=== PATIENT | female | born 1980 | race Hispanic/Latino ===

== ENCOUNTER 2019-10-31 20:24 | Inpatient (IN) | payer MEDICAID, MEDICARE, OTHER ==
[~2019-10-31] VITALS: Ht 172.7 cm; Wt 125.6 kg
[2019-10-31] MEDS ORDERED: DiphenhydrAMINE HCL 50 MG/ML VIAL ONE (20:47)
[2019-10-31] MEDS ORDERED: FAMOTIDINE/PF 20 MG/2 ML VIAL IV ONE (20:48)
[2019-10-31 20:50] LABS: BASOPHILS % (AUTO) 0.6 % (0.0-5.0); EOSINOPHILS % (AUTO) 3.5 % (0.0-8.0); HEMATOCRIT 29.6 % (36-48); LYMPHOCYTES % (AUTO) 6.8 % (21.0-51.0); MEAN CORPUSCULAR HEMOGLOBIN 28.5 pg (27.0-33.0); MEAN CORPUSCULAR HGB CONC 33.4 g/dL (32.0-36.0); MEAN CORPUSCULAR VOLUME 85.3 fL (79-99); MONOCYTES % (AUTO) 12.3 % (3.0-13.0); NEUTROPHILS % (AUTO) 76.4 % (40.0-77.0); PLATELET COUNT (AUTO) 271 K/uL (130-400); RED BLOOD CELL COUNT(AUTO) 3.47 MIL/uL (4.00-5.50); RED CELL DISTRIBUTION WIDTH 13.9 % (11.0-15.5); WHITE BLOOD COUNT (AUTO) 7.1 K/uL (4.8-10.8)
[2019-10-31 21:21] LABS: ALBUMIN 1.5 g/dL (3.5-5.0); BILIRUBIN,TOTAL 0.2 mg/dL (0.2-1.0); CREATININE 7.8 mg/dL (0.5-1.5); CRP QUANTITATIVE 35.2 mg/L (0.00-9.0); POTASSIUM 3.7 mmol/L (3.5-5.1); TOTAL PROTEIN, SERUM 5.2 g/dL (6.0-8.3)
[2019-10-31 21:53] LABS: ERYTHROCYTE SEDIMENTATION RATE 44 MM/HR (0-20)
[2019-10-31] MEDS ORDERED: FUROSEMIDE 10 MG/ML 4ML VIAL ONE (22:51)
[2019-10-31] MEDS ORDERED: LACTULOSE 20 GM/30 ML UDCUP PO PRN (23:30)
[2019-10-31] MEDS ORDERED: ONDANSETRON HCL 4 MG/2 ML VIAL IV PRN (23:30)
[2019-10-31] MEDS ORDERED: ACETAMINOPHEN 325 MG TAB PO PRN ×2 (23:30)
[2019-10-31] MEDS ORDERED: HEPARIN SODIUM 5000UNIT/ML 1ML VIAL SQ SCH (23:30)
[2019-11-01] MEDS ORDERED: HYDRALAZINE HCL 20 MG/ML VIAL IV PRN
--- NOTE | 2019-11-01 01:15 | NUR ---
condition received patient lethargic, patient eye swollen closed, unable to answer questions , breathing with episodes of apnea, hospitalist at bedside vero baughp with orders to do abg and stat cxr, radiology called for pending cxr and rt called for stat abg, housecleaner facundo stern rn, at bedside, informed of patient condition, with orders to upgrade to pccu room obtained to transfer
--- NOTE | 2019-11-01 01:30 | NUR ---
abg rt to do abg as ordered abg tolerated well
[2019-11-01 01:39] LABS: ABG HCO3 21.2 mmol/L (21.0-28.0); ABG OXYGEN SATURATION 97.4 % (95.0-99.0); ABG PCO2 44 mmHg (32-45)
--- NOTE | 2019-11-01 01:50 | NUR ---
transfer report given to sara harrison r.n tramansiferred to room 204 via bed
--- NOTE | 2019-11-01 01:50 | NUR ---
Patient transferred from med/surg. Lethargic, does open eyes when name is called. Answers yes and no. Currently on 2L NC. Resting in bed. Anasarca noted. Periorbital edema. eyes swollen shut. Will continue to monitor.
[2019-11-01 02:26] VITALS: BP 162/94
[2019-11-01 04:00] VITALS: BP 168/89
[2019-11-01 04:14] LABS: BASOPHILS % (AUTO) 0.4 % (0.0-5.0); EOSINOPHILS % (AUTO) 2.8 % (0.0-8.0); HEMATOCRIT 29.8 % (36-48); LYMPHOCYTES % (AUTO) 7.3 % (21.0-51.0); MEAN CORPUSCULAR HEMOGLOBIN 28.3 pg (27.0-33.0); MEAN CORPUSCULAR HGB CONC 32.9 g/dL (32.0-36.0); MEAN CORPUSCULAR VOLUME 86.1 fL (79-99); MONOCYTES % (AUTO) 12.3 % (3.0-13.0); NEUTROPHILS % (AUTO) 76.5 % (40.0-77.0); PLATELET COUNT (AUTO) 307 K/uL (130-400); RED BLOOD CELL COUNT(AUTO) 3.46 MIL/uL (4.00-5.50); RED CELL DISTRIBUTION WIDTH 13.8 % (11.0-15.5); WHITE BLOOD COUNT (AUTO) 7.2 K/uL (4.8-10.8)
[2019-11-01 04:33] LABS: CREATININE 7.7 mg/dL (0.5-1.5); POTASSIUM 3.8 mmol/L (3.5-5.1)
[2019-11-01] MEDS: INSULIN HUMULIN R 100 UNIT/ML 3ML SQ SCH ×4 (06:22→21:00)
[2019-11-01] MEDS ORDERED: QUET200T29 PO (07:46)
[2019-11-01] MEDS ORDERED: TRAZ150T79 PO (07:46)
[2019-11-01] MEDS ORDERED: PHOSLOC PO (07:46)
[2019-11-01] MEDS ORDERED: LEVO150T11 PO (07:46)
[2019-11-01] MEDS ORDERED: FLUO20CA35 PO (07:46)
[2019-11-01] MEDS ORDERED: ATOR40TA71 PO (07:46)
[2019-11-01] MEDS ORDERED: ROPI0.2527 PO (07:46)
[2019-11-01] MEDS ORDERED: AMLO-258 PO (07:46)
[2019-11-01] MEDS ORDERED: ALLO100T PO (07:46)
[2019-11-01] MEDS ORDERED: B,C/1TAB PO (07:46)
[2019-11-01] MEDS ORDERED: CLON0.1T PO (07:46)
[2019-11-01] MEDS ORDERED: SITA25TA5 PO (07:46)
[2019-11-01] MEDS ORDERED: HYDR-4154 PO (07:46)
[2019-11-01] MEDS ORDERED: GABA-529 PO (07:47)
--- NOTE | 2019-11-01 08:00 | NUR ---
ASSESSMENT PT IS AAOX3 LETHARGIC BUT ANSWERS APPOPRIATELY TO LIGHT VERBAL STIMULI. RESTING IN BED. DENIES CP DENIES SOB DENIES NV. NOTED EYES ARE SWOLLEN. PERITONEAL DIALYSIS CATH IN PLACE AND INTACT. NOTED LAVA + THRILL + BRUIT. CALL LIGHT WITHIN REACH.
[2019-11-01] MEDS: FAMOTIDINE 20MG TAB 20 MG TAB PO SCH (08:08)
[2019-11-01] MEDS: HEPARIN SODIUM 5000UNIT/ML 1ML VIAL SQ SCH ×2 (08:09→20:36)
[2019-11-01 08:14] VITALS: BP 174/93
[2019-11-01] MEDS ORDERED: ZINC PO SCH (09:30)
[2019-11-01] MEDS ORDERED: [UNRECOGNIZED DRUG - OTHER] PO SCH (09:30)
[2019-11-01] MEDS ORDERED: D3 PO SCH (09:30)
[2019-11-01] MEDS ORDERED: FOLIC PO SCH (09:30)
[2019-11-01] MEDS ORDERED: SELENOMETH PO SCH (09:30)
[2019-11-01] MEDS ORDERED: CEFTRIAXONE SODIUM 1 GM IVP SCH (10:15)
--- NOTE | 2019-11-01 10:30 | NUR ---
HOSPITALIST ROUNDED ORDERS RECEIVED. RESP SWAB COLLECTED. REPORT GIVEN TO PATRICIA COHEN. PATIENT DOWN TO CT SCAN VIA BED WITH RAD STAFF.
[2019-11-01] MEDS: AZITHROMYCIN 500MG+NS 250ML 250 ML IV SCH (12:16)
[2019-11-01] MEDS: CALCIUM ACETATE 667 MG CAPSULE PO SCH ×2 (12:16→17:57)
[2019-11-01] MEDS ORDERED: EPOETIN ALFA 10,000 UNIT/ML VIAL SQ SCH (13:15)
[2019-11-01] MEDS: CLONIDINE HCL 0.1 MG TABLET PO SCH ×2 (13:44→20:34)
[2019-11-01] MEDS: GABAPENTIN 100 MG CAPSULE PO SCH ×2 (13:44→20:33)
[2019-11-01] MEDS: HYDRALAZINE HCL 25 MG TABLET PO SCH ×2 (13:44→20:34)
[2019-11-01] MEDS: PHARMACY COMMUNICATION MISC SCH ×2 (14:00→22:00)
[2019-11-01] MEDS: LEVOTHYROXINE 150 MCG TABLET PO SCH (14:19)
[2019-11-01 16:31] VITALS: BP 132/76
[2019-11-01 20:05] VITALS: BP 165/79
[2019-11-01] MEDS: ZOSYN 3.375GM+NS 50ML 50 ML IV SCH (20:41)
[2019-11-01] MEDS ORDERED: ROPINIROLE HCL 0.25 MG TABLET PO SCH (21:00)
[2019-11-01] MEDS ORDERED: ATORVASTATIN CALCIUM 40 MG TABLET PO SCH (21:00)
[2019-11-01] MEDS ORDERED: QUETIAPINE FUMARATE 100 MG TAB PO SCH (21:00)
[2019-11-02 00:14] VITALS: BP 136/80
[2019-11-02] MEDS ORDERED: DEXTROSE 50%-WATER 50 ML DISP.SYRIN IV ONE (00:54)
[2019-11-02] MEDS ORDERED: DEXTROSE 5 % AND 0.9 % NACL 1,000 ML IV SCH (04:00)
[2019-11-02 04:32] VITALS: BP 150/89
[2019-11-02 04:52] LABS: BASOPHILS % (AUTO) 0.9 % (0.0-5.0); EOSINOPHILS % (AUTO) 2.3 % (0.0-8.0); HEMATOCRIT 26.7 % (36-48); LYMPHOCYTES % (AUTO) 7.9 % (21.0-51.0); MEAN CORPUSCULAR HEMOGLOBIN 28.4 pg (27.0-33.0); MEAN CORPUSCULAR HGB CONC 32.6 g/dL (32.0-36.0); MEAN CORPUSCULAR VOLUME 87.3 fL (79-99); MONOCYTES % (AUTO) 10.9 % (3.0-13.0); NEUTROPHILS % (AUTO) 77.3 % (40.0-77.0); PLATELET COUNT (AUTO) 266 K/uL (130-400); RED BLOOD CELL COUNT(AUTO) 3.06 MIL/uL (4.00-5.50); RED CELL DISTRIBUTION WIDTH 14.2 % (11.0-15.5); WHITE BLOOD COUNT (AUTO) 4.3 K/uL (4.8-10.8)
[2019-11-02 05:45] LABS: % IRON SATURATION 55.6 % (22-44)
[2019-11-02] MEDS ORDERED: LEVOTHYROXINE 150 MCG TABLET PO SCH (06:30)
[2019-11-02] MEDS: LEVOTHYROXINE 150 MCG TABLET PO SCH (06:41)
[2019-11-02 06:56] LABS: ALBUMIN 1.5 g/dL (3.5-5.0); BILIRUBIN,TOTAL 0.1 mg/dL (0.2-1.0); CREATININE 6.7 mg/dL (0.5-1.5); MAGNESIUM 2.1 mg/dL (1.80-2.40); PHOSPHORUS 8.8 mg/dL (2.5-4.9); POTASSIUM 3.7 mmol/L (3.5-5.1); TOTAL PROTEIN, SERUM 5.1 g/dL (6.0-8.3); URIC ACID 4.3 mg/dL (2.6-7.2)
[2019-11-02 07:00] VITALS: BP 163/77
[2019-11-02] MEDS: INSULIN HUMULIN R 100 UNIT/ML 3ML SQ SCH (07:30)
[2019-11-02] MEDS: PHARMACY COMMUNICATION MISC SCH (07:36)
[2019-11-02] MEDS: CALCIUM ACETATE 667 MG CAPSULE PO SCH ×2 (08:51→11:42)
[2019-11-02] MEDS: GABAPENTIN 100 MG CAPSULE PO SCH (08:52)
[2019-11-02] MEDS: HYDRALAZINE HCL 25 MG TABLET PO SCH (08:53)
[2019-11-02] MEDS: CLONIDINE HCL 0.1 MG TABLET PO SCH (08:53)
[2019-11-02] MEDS: FAMOTIDINE 20MG TAB 20 MG TAB PO SCH (08:54)
[2019-11-02] MEDS: ZOSYN 3.375GM+NS 50ML 50 ML IV SCH (08:54)
[2019-11-02] MEDS ORDERED: ALLOPURINOL 100 MG TABLET PO SCH (09:00)
[2019-11-02] MEDS ORDERED: AMLODIPINE BESYLATE 5 MG TAB PO SCH (09:00)
[2019-11-02] MEDS: HEPARIN SODIUM 5000UNIT/ML 1ML VIAL SQ SCH (09:13)
[2019-11-02 11:00] VITALS: BP 162/73
[2019-11-02] MEDS: AZITHROMYCIN 500MG+NS 250ML 250 ML IV SCH (11:42)
--- NOTE | 2019-11-02 13:45 | NUR ---
Initial: PT currently in resp. isolation. Call placed to pt's room. Was able to speak w pt regarding dcp. Pt mentions that prior to admission she was using a walker for ambulation. She completed ADLs w assistance from her mom. Per pt she was completing peritoneal dialysis at home and [facility] [place]. She mentions that she is thinking of switching to hemodialysis. Encouraged her to discuss this w nephrology. Pt mentions that she feels safe and comfortable to [place]. CM to continue to follow and wait for Md recommendations. Addendum: 11/02/19 at 1703 by MANNIE MORRIOSN Amended: Links added.
[2019-12-28] MEDS ORDERED: TRAM100T40 PO (22:18)
[2019-12-30] MEDS ORDERED: HYDR25 PO (16:59)
[2019-12-30] MEDS ORDERED: LEVO100T4 PO (16:59)
[2019-12-30] MEDS ORDERED: SEVE800 PO (16:59)
[2019-12-30] MEDS ORDERED: CLON0.1T2 PO (16:59)
[2019-12-30] MEDS ORDERED: MINO2.5 PO (17:14)
[2019-12-30] MEDS ORDERED: Folic Acid/Vitamin B Comp W-C PO (17:14)
== END 2019-11-02 14:30 | disposition left against medical advice (07) | DRG 602 ==
LOC: EDH 20:24 → EDHIP 23:17 → 3AH 11-01 00:11 → 2AH 11-01 01:55 → 2DH 11-01 11:50
PROVIDERS: ADMIT Internal Medicine; ATTEND Internal Medicine
PROC: 3E1M39Z Irrigation of Peritoneal Cavity using Dialysate, Percutaneous Approach (ICD-10-PCS; principal; 2019-11-01)
DX: L03.211 Cellulitis of face (principal); J18.9 Pneumonia, unspecified organism; N18.6 End stage renal disease; I12.0 Hypertensive chronic kidney disease with stage 5 chronic kidney disease or end stage renal disease; E66.2 Morbid (severe) obesity with alveolar hypoventilation; Z68.41 Body mass index [BMI] 40.0-44.9, adult; E87.1 Hypo-osmolality and hyponatremia; E87.70 Fluid overload, unspecified; H05.229 Edema of unspecified orbit; E11.22 Type 2 diabetes mellitus with diabetic chronic kidney disease; D64.9 Anemia, unspecified; E03.9 Hypothyroidism, unspecified; E11.649 Type 2 diabetes mellitus with hypoglycemia without coma; E78.5 Hyperlipidemia, unspecified; E87.8 Other disorders of electrolyte and fluid balance, not elsewhere classified; F17.210 Nicotine dependence, cigarettes, uncomplicated; Z99.2 Dependence on renal dialysis; Z91.19 Patient's noncompliance with other medical treatment and regimen; Z88.8 Allergy status to other drugs, medicaments and biological substances; Z83.3 Family history of diabetes mellitus; Z03.818 Encounter for observation for suspected exposure to other biological agents ruled out
CPT/HCPCS: 36415; 36600; 71045; 71250; 80048; 80053; 82150; 82550; 82728; 82803; 82948; 83540; 83550; 83605; 83690; 83735; 83880; 83930; 84100; 84145; 84443; 84484; 84550; 85025; 85651; 86140; 87040; 87077; 87186; 87486; 87581; 87633; 87635; 87798; 90935; 93005; G0378; J0360; J0456; J0696; J0885; J1200; J1644; J1940; J2405; J2543; J3490; J7070

== ENCOUNTER 2019-11-05 23:58 | Inpatient (IN) | payer MEDICARE ==
[~2019-11-05] VITALS: Ht 172.7 cm; Wt 121.7 kg
[~2019-11-05 23:58] MED LIST: ALLO100T PO; AMLO10TA7 PO; ATOR40TA71 PO; B,C/1TAB PO; CLON0.1T PO; FLUO20CA35 PO; GABA-529 PO; HYDR-4154 PO; LEVO150T11 PO; PHOSLOC PO; QUET200T29 PO; ROPI0.2527 PO; SITA25TA5 PO; TRAZ150T79 PO
[2019-11-06 00:47] LABS: INR 0.87 (0.85-1.15); PARTIAL THROMBOPLASTIN TIME 31.6 SEC (26.3-35.5); PROTHROMBIN TIME 9.4 SEC (9.6-11.6)
[2019-11-06 00:52] LABS: ALBUMIN 1.6 g/dL (3.5-5.0); BILIRUBIN,TOTAL 0.2 mg/dL (0.2-1.0); MAGNESIUM 2.2 mg/dL (1.80-2.40); POTASSIUM 4.1 mmol/L (3.5-5.1); TOTAL PROTEIN, SERUM 5.5 g/dL (6.0-8.3)
[2019-11-06 00:56] LABS: CREATININE 8.5 mg/dL (0.5-1.5)
[2019-11-06 01:05] LABS: BASOPHILS % (AUTO) 0.4 % (0.0-5.0); EOSINOPHILS % (AUTO) 2.5 % (0.0-8.0); HEMATOCRIT 26.4 % (36-48); LYMPHOCYTES % (AUTO) 4.8 % (21.0-51.0); MEAN CORPUSCULAR HEMOGLOBIN 28.5 pg (27.0-33.0); MEAN CORPUSCULAR HGB CONC 33.3 g/dL (32.0-36.0); MEAN CORPUSCULAR VOLUME 85.4 fL (79-99); MONOCYTES % (AUTO) 7.2 % (3.0-13.0); NEUTROPHILS % (AUTO) 84.6 % (40.0-77.0); PLATELET COUNT (AUTO) 310 K/uL (130-400); RED BLOOD CELL COUNT(AUTO) 3.09 MIL/uL (4.00-5.50); RED CELL DISTRIBUTION WIDTH 13.9 % (11.0-15.5); WHITE BLOOD COUNT (AUTO) 8.5 K/uL (4.8-10.8)
[2019-11-06] MEDS ORDERED: ACETAMINOPHEN 325 MG TAB ONE (01:16)
[2019-11-06 01:32] LABS: B-TYPE NATRIURETIC PEPTIDE 1090 pg/mL (0-100)
[2019-11-06] MEDS ORDERED: ONDANSETRON HCL 4 MG/2 ML VIAL IV PRN (02:15)
[2019-11-06] MEDS ORDERED: ACETAMINOPHEN 325 MG TAB PO PRN ×2 (02:15)
[2019-11-06] MEDS ORDERED: GLUCAGON 1MG KIT 1 MG ML IM PRN (02:30)
[2019-11-06] MEDS ORDERED: DEXTROSE 50%-WATER 50 ML DISP.SYRIN IV PRN (02:30)
[2019-11-06] MEDS ORDERED: CLONIDINE HCL 0.1 MG TABLET PO ONE (02:30)
[2019-11-06] MEDS ORDERED: HYDRALAZINE HCL 20 MG/ML VIAL IV PRN (02:30)
[2019-11-06] MEDS ORDERED: CLONIDINE HCL 0.1 MG TABLET ONE (02:34)
[2019-11-06 03:15] VITALS: BP_SYST 185; BP_SYST 191; BP_DIAS 105; BP_DIAS 98
[2019-11-06 04:00] VITALS: BP 142/76
[2019-11-06] MEDS: INSULIN HUMULIN R 100 UNIT/ML 3ML SQ SCH ×4 (06:30→21:00)
[2019-11-06 08:00] VITALS: BP 158/86
[2019-11-06] MEDS: HEPARIN SODIUM 5000UNIT/ML 1ML VIAL SQ SCH ×2 (09:00→23:42)
--- NOTE | 2019-11-06 09:00 | NUR ---
I HAVE SPOKEN TO DR FU ON THE PHONE AND HE HAS GIVEN ME ORDER TO START DIALYSIS; I HAVE CALLED [facility] FOR DIALYSIS [facility] AND INFORMED HER PT NEEDS STAT DIALYSIS; CONSENT IS ALREADY SIGNED.
[2019-11-06 09:30] LABS: HEMATOCRIT 25.6 % (36-48)
[2019-11-06 09:47] LABS: HEMOGLOBIN A1C 5.6 % (4.0-6.0)
[2019-11-06] MEDS: FAMOTIDINE 20MG TAB 20 MG TAB PO SCH ×2 (10:01→23:11)
[2019-11-06 10:03] LABS: % IRON SATURATION 12.8 % (22-44); ALBUMIN 1.6 g/dL (3.5-5.0)
[2019-11-06 10:11] LABS: CREATININE 8.6 mg/dL (0.5-1.5)
[2019-11-06 12:00] VITALS: BP 163/76
[2019-11-06] MEDS: CALCIUM ACETATE 667 MG CAPSULE PO SCH ×2 (12:00→17:00)
--- NOTE | 2019-11-06 12:23 | NUR ---
INITIAL SW spoke with patient's mother, Eloina Littlejohn, [phone]. No home services. DME: [facility]. Patient was doing peritoneal dialysis at home but now wants to have hemodialysis as per mother. Patient just moved down from [place] about a month and a half ago. Patient has no PCP yet. Pharmacy is [facility] in [place]. As per mother, patient needs assistance with ADL's and does not drive. DCP as per mother is home unless patient agrees for placement. Addendum: 11/06/19 at 1229 by LAKE SHERIFF SS Amended: Links added.
--- NOTE | 2019-11-06 13:04 | NUR ---
pt is ready for permacath placement, consent done; i spoke to laboratory veterinarian and they stated radiologist not available till 4pm this afternoon to place; i expressed the need to have done today and not delay till tomorrow. .
[2019-11-06] MEDS: GABAPENTIN 100 MG CAPSULE PO SCH ×2 (14:00→23:11)
[2019-11-06] MEDS: CLONIDINE HCL 0.1 MG TABLET PO SCH (14:00)
[2019-11-06] MEDS ORDERED: EPOETIN ALFA 10,000 UNIT/ML VIAL SQ SCH (14:00)
[2019-11-06] MEDS: HYDRALAZINE HCL 25 MG TABLET PO SCH ×2 (14:00→23:11)
[2019-11-06] MEDS ORDERED: COMPOUND IV MISC 1 EACH IVSOLN MISC PRN (14:15)
[2019-11-06] MEDS ORDERED: IODIXANOL 320 MG/ML 100 ML VIAL ONE (15:49)
[2019-11-06] MEDS ORDERED: MIDAZOLAM HCL 1 MG/ML 2ML VIAL ONE (15:50)
[2019-11-06] MEDS ORDERED: LIDOCAINE HCL 1% MDV 50ML VIAL ONE (15:50)
[2019-11-06] MEDS ORDERED: FENTANYL CITRATE PF 50 MCG/1 ML 2ML VIAL ONE (15:50)
[2019-11-06 16:00] VITALS: BP 121/84
--- NOTE | 2019-11-06 16:47 | NUR ---
received pt back from helper animal laboratory, no perm a cath placed, pt has a clean dry and intact dressing to left arm where fistulagram was done; dialysis nurse at bedside to attempt to do dialysis at this time; perm a cath not inserted because curent fistula functioning normally
[2019-11-06 19:00] VITALS: BP 155/80
[2019-11-06] MEDS ORDERED: QUETIAPINE FUMARATE 100 MG TAB PO SCH (21:00)
[2019-11-06] MEDS ORDERED: TRAZODONE HCL 100 MG TABLET PO SCH (21:00)
[2019-11-06] MEDS: ATORVASTATIN CALCIUM 40 MG TABLET PO SCH (23:11)
[2019-11-06] MEDS: ROPINIROLE HCL 0.25 MG TABLET PO SCH (23:11)
[2019-11-06] MEDS: IRON SUCROSE COMPLEX 100 MG in SODIUM CHLORIDE 0.9% 50 ML IV SCH (23:16)
[2019-11-07] VITALS (7 sets, daily range): BP systolic 135–166; BP diastolic 47–89
[2019-11-07] MEDS: CLONIDINE HCL 0.1 MG TABLET PO SCH ×4 (00:13→21:33)
[2019-11-07 04:28] LABS: BASOPHILS % (AUTO) 0.8 % (0.0-5.0); EOSINOPHILS % (AUTO) 2.3 % (0.0-8.0); HEMATOCRIT 23.1 % (36-48); LYMPHOCYTES % (AUTO) 7.5 % (21.0-51.0); MEAN CORPUSCULAR HGB CONC 32.5 g/dL (32.0-36.0); MEAN CORPUSCULAR VOLUME 86.2 fL (79-99); MONOCYTES % (AUTO) 7.7 % (3.0-13.0); NEUTROPHILS % (AUTO) 81.3 % (40.0-77.0); PLATELET COUNT (AUTO) 227 K/uL (130-400); RED BLOOD CELL COUNT(AUTO) 2.68 MIL/uL (4.00-5.50); WHITE BLOOD COUNT (AUTO) 5.2 K/uL (4.8-10.8)
[2019-11-07 04:47] LABS: ALBUMIN 1.4 g/dL (3.5-5.0); BILIRUBIN,TOTAL 0.2 mg/dL (0.2-1.0); CREATININE 7.4 mg/dL (0.5-1.5); POTASSIUM 3.8 mmol/L (3.5-5.1); TOTAL PROTEIN, SERUM 4.9 g/dL (6.0-8.3)
[2019-11-07] MEDS: INSULIN HUMULIN R 100 UNIT/ML 3ML SQ SCH ×4 (05:49→21:00)
[2019-11-07 07:11] LABS: HEPATITIS Bs ANTIGEN SCREEN P Negative (Negative)
[2019-11-07] MEDS: AMLODIPINE BESYLATE 5 MG TAB PO SCH (09:00)
[2019-11-07] MEDS: HYDRALAZINE HCL 25 MG TABLET PO SCH ×3 (09:00→21:33)
[2019-11-07] MEDS ORDERED: FOLIC ACID 1 MG TABLET ONE (09:10)
[2019-11-07] MEDS: FAMOTIDINE 20MG TAB 20 MG TAB PO SCH ×2 (09:14→21:33)
[2019-11-07] MEDS: LINAGLIPTIN 5 MG TABLET PO SCH (09:14)
[2019-11-07] MEDS: FLUOXETINE HCL 20 MG CAPSULE PO SCH (09:14)
[2019-11-07] MEDS: ALLOPURINOL 100 MG TABLET PO SCH (09:14)
[2019-11-07] MEDS: LEVOTHYROXINE 150 MCG TABLET PO SCH (09:14)
[2019-11-07] MEDS: FOLIC ACID/VITAMIN B COMP W-C 1 CAP TAB PO SCH (09:14)
[2019-11-07] MEDS: CALCIUM ACETATE 667 MG CAPSULE PO SCH ×3 (09:14→18:26)
[2019-11-07] MEDS: GABAPENTIN 100 MG CAPSULE PO SCH ×3 (09:14→21:33)
[2019-11-07] MEDS: HEPARIN SODIUM 5000UNIT/ML 1ML VIAL SQ SCH ×2 (09:21→21:17)
--- NOTE | 2019-11-07 14:49 | NUR ---
1409 I gave pt BPCI Letter at this time. Patient verbalized understanding for the letter and asked me to place it on the table for now since she is getting dialysis at this moment.
--- NOTE | 2019-11-07 17:36 | NUR ---
CM NOTE/DIALYSIS REFERRAL NEW REFERRAL FOR DIALYSIS PER DR. FU. WAN FOR US RENAL. CLINICAL PACKET AND TREATMENTS FAXED AND CONFIRMED RECEIVED TO LOCAL AND INTAKE OFFICE. PENDING 3RD TREATMENT, CM TO FOLLOW UP.
--- NOTE | 2019-11-07 19:40 | NUR ---
RUQ PERITONEAL CATH INTACT-CURRENTLY NOT USED Addendum: 11/08/19 at 0105 by LAKE DIAZ RN RN Amended: Links added.
[2019-11-07] MEDS: ATORVASTATIN CALCIUM 40 MG TABLET PO SCH (21:32)
[2019-11-07] MEDS: ROPINIROLE HCL 0.25 MG TABLET PO SCH (21:33)
[2019-11-08 04:27] VITALS: BP 168/81
[2019-11-08 05:44] LABS: ALBUMIN 1.5 g/dL (3.5-5.0); BILIRUBIN,TOTAL 0.2 mg/dL (0.2-1.0); POTASSIUM 3.7 mmol/L (3.5-5.1); TOTAL PROTEIN, SERUM 5.2 g/dL (6.0-8.3)
[2019-11-08] MEDS: INSULIN HUMULIN R 100 UNIT/ML 3ML SQ SCH ×4 (05:49→19:45)
[2019-11-08 06:04] LABS: BASOPHILS % (AUTO) 0.3 % (0.0-5.0); EOSINOPHILS % (AUTO) 2.4 % (0.0-8.0); HEMATOCRIT 22.8 % (36-48); LYMPHOCYTES % (AUTO) 4.2 % (21.0-51.0); MEAN CORPUSCULAR HGB CONC 32.9 g/dL (32.0-36.0); NEUTROPHILS % (AUTO) 83.7 % (40.0-77.0); PLATELET COUNT (AUTO) 276 K/uL (130-400); RED BLOOD CELL COUNT(AUTO) 2.59 MIL/uL (4.00-5.50); RED CELL DISTRIBUTION WIDTH 14.5 % (11.0-15.5); WHITE BLOOD COUNT (AUTO) 7.1 K/uL (4.8-10.8)
[2019-11-08 08:24] VITALS: BP 142/72
[2019-11-08] MEDS ORDERED: EPOETIN ALFA 10,000 UNIT/ML VIAL SQ SCH (09:00)
[2019-11-08] MEDS: HYDRALAZINE HCL 25 MG TABLET PO SCH ×3 (09:00→23:30)
[2019-11-08] MEDS: CALCIUM ACETATE 667 MG CAPSULE PO SCH ×3 (09:32→16:46)
[2019-11-08] MEDS: GABAPENTIN 100 MG CAPSULE PO SCH ×3 (09:33→20:35)
[2019-11-08] MEDS: FLUOXETINE HCL 20 MG CAPSULE PO SCH (09:33)
[2019-11-08] MEDS: EPOETIN ALFA 10,000 UNIT/ML VIAL SQ SCH (09:33)
[2019-11-08] MEDS: LEVOTHYROXINE 150 MCG TABLET PO SCH (09:33)
[2019-11-08] MEDS: LINAGLIPTIN 5 MG TABLET PO SCH (09:33)
[2019-11-08] MEDS: ALLOPURINOL 100 MG TABLET PO SCH (09:33)
[2019-11-08] MEDS: FAMOTIDINE 20MG TAB 20 MG TAB PO SCH ×2 (09:33→20:32)
[2019-11-08] MEDS: AMLODIPINE BESYLATE 5 MG TAB PO SCH (09:33)
[2019-11-08] MEDS: CLONIDINE HCL 0.1 MG TABLET PO SCH ×3 (09:34→23:29)
[2019-11-08] MEDS: HEPARIN SODIUM 5000UNIT/ML 1ML VIAL SQ SCH ×2 (09:40→20:30)
[2019-11-08 12:16] VITALS: BP 148/100
[2019-11-08 14:50] LABS: ABG BASE EXCESS -2.3 mmol/L (-2.0-3.0); ABG HCO3 20.8 mmol/L (21.0-28.0); ABG OXYGEN SATURATION 97.4 % (95.0-99.0); ABG PCO2 32 mmHg (32-45)
[2019-11-08 17:06] VITALS: BP 146/70
[2019-11-08 19:00] VITALS: BP 183/86
[2019-11-08] MEDS: ROPINIROLE HCL 0.25 MG TABLET PO SCH (20:32)
[2019-11-08] MEDS: ATORVASTATIN CALCIUM 40 MG TABLET PO SCH (20:32)
[2019-11-08 23:00] VITALS: BP 163/81
[2019-11-09 03:00] VITALS: BP 168/111
[2019-11-09 05:33] LABS: BASOPHILS % (AUTO) 0.4 % (0.0-5.0); EOSINOPHILS % (AUTO) 5.1 % (0.0-8.0); HEMATOCRIT 21.5 % (36-48); LYMPHOCYTES % (AUTO) 9.6 % (21.0-51.0); MEAN CORPUSCULAR HEMOGLOBIN 27.6 pg (27.0-33.0); MEAN CORPUSCULAR HGB CONC 31.2 g/dL (32.0-36.0); MEAN CORPUSCULAR VOLUME 88.5 fL (79-99); MONOCYTES % (AUTO) 11.8 % (3.0-13.0); NEUTROPHILS % (AUTO) 72.5 % (40.0-77.0); PLATELET COUNT (AUTO) 229 K/uL (130-400); RED BLOOD CELL COUNT(AUTO) 2.43 MIL/uL (4.00-5.50); RED CELL DISTRIBUTION WIDTH 14.6 % (11.0-15.5); WHITE BLOOD COUNT (AUTO) 5.1 K/uL (4.8-10.8)
[2019-11-09] MEDS: INSULIN HUMULIN R 100 UNIT/ML 3ML SQ SCH ×4 (05:47→20:00)
[2019-11-09 05:49] LABS: ALBUMIN 1.4 g/dL (3.5-5.0); BILIRUBIN,TOTAL 0.2 mg/dL (0.2-1.0); CREATININE 6.8 mg/dL (0.5-1.5); TOTAL PROTEIN, SERUM 4.8 g/dL (6.0-8.3)
[2019-11-09] MEDS: IRON SUCROSE COMPLEX 100 MG in SODIUM CHLORIDE 0.9% 50 ML IV SCH (07:56)
[2019-11-09] MEDS: LINAGLIPTIN 5 MG TABLET PO SCH (07:57)
[2019-11-09] MEDS: CALCIUM ACETATE 667 MG CAPSULE PO SCH ×3 (07:57→17:23)
[2019-11-09] MEDS: FAMOTIDINE 20MG TAB 20 MG TAB PO SCH ×2 (07:57→19:48)
[2019-11-09] MEDS: HYDRALAZINE HCL 25 MG TABLET PO SCH ×3 (07:58→19:48)
[2019-11-09] MEDS: AMLODIPINE BESYLATE 5 MG TAB PO SCH (07:58)
[2019-11-09] MEDS: ALLOPURINOL 100 MG TABLET PO SCH (07:58)
[2019-11-09] MEDS: GABAPENTIN 100 MG CAPSULE PO SCH ×3 (07:58→19:47)
[2019-11-09] MEDS: FLUOXETINE HCL 20 MG CAPSULE PO SCH (07:58)
[2019-11-09] MEDS: CLONIDINE HCL 0.1 MG TABLET PO SCH ×3 (07:59→19:47)
[2019-11-09] MEDS: HEPARIN SODIUM 5000UNIT/ML 1ML VIAL SQ SCH ×2 (08:03→19:50)
[2019-11-09] MEDS: NICOTINE 7 MG/ 24 HR PATCH TD SCH (08:04)
[2019-11-09] MEDS: EPOETIN ALFA 10,000 UNIT/ML VIAL SQ SCH (08:04)
[2019-11-09] MEDS: LEVOTHYROXINE 150 MCG TABLET PO SCH (08:04)
[2019-11-09 08:09] VITALS: BP 170/105
[2019-11-09 11:38] VITALS: BP 134/66
[2019-11-09 16:40] VITALS: BP 149/69
[2019-11-09 19:00] VITALS: BP 155/81
--- NOTE | 2019-11-09 19:18 | NUR ---
DR RUBIO/BLOOD TRANSFUSION \RELAYED ORDER FROM HOSPITALIST FOR 1 UNIT OF BLOOD TO DR RUBIO. PER DR RUBIO: DO NOT ADMINISTER BLOOD BECAUSE PT HAS NOT RECEIVED DIALYSIS. HOSPITALIST MADE AWARE AND VERBALIZED UNDERSTANDING
[2019-11-09] MEDS: ATORVASTATIN CALCIUM 40 MG TABLET PO SCH (19:47)
[2019-11-09] MEDS: ROPINIROLE HCL 0.25 MG TABLET PO SCH (19:47)
--- NOTE | 2019-11-09 20:00 | NUR ---
PAIN PATIENT COMPLAINS OF ABD PAIN. PATIENT HAS HAS A CT OF THE ABD WITH NORMAL RESULTS BUT STILL HAS PAIN. Lionel MAYORGA FURNITURE PAINTER NOTIFIED AND RECEIVED AN ORDER FOR MORPHINE 2 MG IV. MEDICATION WAS ADMINISTERED WILL MONITOR PT.
[2019-11-09] MEDS ORDERED: MORPHINE SULFATE 2 MG/ML 1ML SYG IVP SCH (20:15)
[2019-11-09] MEDS ORDERED: MORPHINE SULFATE 2 MG/ML 1ML SYG ONE (20:20)
[2019-11-09] MEDS ORDERED: HYDROMORPHONE HCL 2 MG/ML VIAL ONE (21:28)
[2019-11-09 23:00] VITALS: BP 139/76
[2019-11-10] MEDS ORDERED: HYDROMORPHONE HCL 2 MG/ML VIAL ONE ×2 (00:04)
--- NOTE | 2019-11-10 00:14 | NUR ---
PAIN PATIENT COMPLAINS OF ABD PAIN Lionel MAYORGA TAX RECORD CLERK NOTIFIED AND NEW ORDERS GIVEN AND CARRIED OUT.
[2019-11-10] MEDS: HYDROMORPHONE HCL 2 MG/ML VIAL IVP PRN ×4 (02:19→22:56)
[2019-11-10 03:00] VITALS: BP 135/67
[2019-11-10] MEDS: INSULIN HUMULIN R 100 UNIT/ML 3ML SQ SCH (05:11)
[2019-11-10 05:29] LABS: HEMATOCRIT 22.3 % (36-48); MEAN CORPUSCULAR HEMOGLOBIN 27.6 pg (27.0-33.0); MEAN CORPUSCULAR HGB CONC 30.5 g/dL (32.0-36.0); MEAN CORPUSCULAR VOLUME 90.7 fL (79-99); PLATELET COUNT (AUTO) 262 K/uL (130-400); RED BLOOD CELL COUNT(AUTO) 2.46 MIL/uL (4.00-5.50); RED CELL DISTRIBUTION WIDTH 14.7 % (11.0-15.5); WHITE BLOOD COUNT (AUTO) 7.2 K/uL (4.8-10.8)
[2019-11-10 05:42] LABS: CREATININE 7.5 mg/dL (0.5-1.5); PHOSPHORUS 8.3 mg/dL (2.5-4.9); POTASSIUM 4.9 mmol/L (3.5-5.1)
[2019-11-10 05:47] LABS: BAND NEUTROPHILS % (MANUAL) 10 % (0-2); EOSINOPHILS % (MANUAL) 2 % (1-6); LYMPHOCYTES % (MANUAL) 11 % (22-44); MAN.DIFF COMMENT-IMPRESSION MANUAL DIFFERENTIAL; MONOCYTES % (MANUAL) 4 % (2-9); PLATELET MORPHOLOGY COMMENT ADEQUATE; SEGMENTED NEUTROPHILS % 73 % (40-70)
[2019-11-10 07:21] VITALS: BP 145/73
[2019-11-10] MEDS: CALCIUM ACETATE 667 MG CAPSULE PO SCH ×3 (08:53→17:08)
[2019-11-10] MEDS: GABAPENTIN 100 MG CAPSULE PO SCH ×3 (08:53→19:24)
[2019-11-10] MEDS: FAMOTIDINE 20MG TAB 20 MG TAB PO SCH ×2 (08:53→19:24)
[2019-11-10] MEDS: FLUOXETINE HCL 20 MG CAPSULE PO SCH (08:53)
[2019-11-10] MEDS: LINAGLIPTIN 5 MG TABLET PO SCH (08:53)
[2019-11-10] MEDS: FOLIC ACID/VITAMIN B COMP W-C 1 CAP TAB PO SCH (08:53)
[2019-11-10] MEDS: LEVOTHYROXINE 150 MCG TABLET PO SCH (08:54)
[2019-11-10] MEDS: NICOTINE 7 MG/ 24 HR PATCH TD SCH (08:54)
[2019-11-10] MEDS: ALLOPURINOL 100 MG TABLET PO SCH (08:54)
[2019-11-10] MEDS: CLONIDINE HCL 0.1 MG TABLET PO SCH ×3 (09:00→19:25)
[2019-11-10] MEDS: HEPARIN SODIUM 5000UNIT/ML 1ML VIAL SQ SCH ×2 (09:00→19:30)
[2019-11-10] MEDS: HYDRALAZINE HCL 25 MG TABLET PO SCH ×3 (09:00→19:25)
[2019-11-10] MEDS ORDERED: MINERAL OIL/PETROLATUM,WHITE 454 GM CREAM.GM. TP PRN (10:00)
[2019-11-10] MEDS: NYSTATIN 15 GM POWDER TP SCH ×2 (10:15→21:00)
[2019-11-10] MEDS ORDERED: LIDOCAINE 5% TOPICAL PATCH TP SCH (10:30)
[2019-11-10 10:36] VITALS: BP 159/74
[2019-11-10] MEDS ORDERED: FLUCONAZOLE 100 MG TAB PO SCH (11:15)
[2019-11-10] MEDS: EPOETIN ALFA 10,000 UNIT/ML VIAL SQ SCH (13:01)
--- NOTE | 2019-11-10 13:46 | NUR ---
CONSULT GYNECOLOGY DR DOUGHERTY CALLED AT OFFICE, LEFT MESSAGE INFORMED OF CONSULT. PATIENT HAS RIGHT LABIA SWELLING, YELLOW DISCHARGE.
[2019-11-10 16:25] VITALS: BP 155/74
[2019-11-10] MEDS ORDERED: FLUCONAZOLE 100 MG TAB ONE (17:01)
[2019-11-10] MEDS: AMLODIPINE BESYLATE 5 MG TAB PO SCH (17:07)
[2019-11-10] MEDS: ZOSYN 3.375GM+NS 50ML 50 ML IV SCH (17:07)
[2019-11-10 17:16] LABS: HEMATOCRIT 25.9 % (36-48)
[2019-11-10] MEDS: ATORVASTATIN CALCIUM 40 MG TABLET PO SCH (19:24)
[2019-11-10] MEDS: ROPINIROLE HCL 0.25 MG TABLET PO SCH (19:24)
--- NOTE | 2019-11-10 19:27 | NUR ---
DR DOUGHERTY (GYNECOLOGY) RECOMMENDATION: DIFLUCAN 150MG PO ONCE WEEKLY FOR 3 WEEKS. PATIENT DID GET A DOSE OF 200MG TODAY.
[2019-11-10 20:41] VITALS: BP 142/66
[2019-11-10 23:35] VITALS: BP 139/76
[2019-11-11] MEDS: HYDROMORPHONE HCL 2 MG/ML VIAL IVP PRN ×2 (02:36→05:39)
[2019-11-11 04:22] VITALS: BP 141/61
[2019-11-11] MEDS: ZOSYN 3.375GM+NS 50ML 50 ML IV SCH ×3 (04:53→23:22)
[2019-11-11 05:32] LABS: HEMATOCRIT 25.7 % (36-48)
[2019-11-11 05:47] LABS: CREATININE 6.2 mg/dL (0.5-1.5); MAGNESIUM 2.3 mg/dL (1.80-2.40); POTASSIUM 4.1 mmol/L (3.5-5.1)
[2019-11-11 07:15] VITALS: BP 148/78
[2019-11-11] MEDS: EPOETIN ALFA 10,000 UNIT/ML VIAL SQ SCH (08:29)
[2019-11-11] MEDS: LINAGLIPTIN 5 MG TABLET PO SCH (08:29)
[2019-11-11] MEDS: FLUOXETINE HCL 20 MG CAPSULE PO SCH (08:29)
[2019-11-11] MEDS: LEVOTHYROXINE 150 MCG TABLET PO SCH (08:30)
[2019-11-11] MEDS: FAMOTIDINE 20MG TAB 20 MG TAB PO SCH ×2 (08:30→19:39)
[2019-11-11] MEDS: ALLOPURINOL 100 MG TABLET PO SCH (08:30)
[2019-11-11] MEDS: AMLODIPINE BESYLATE 5 MG TAB PO SCH (08:30)
[2019-11-11] MEDS: HYDRALAZINE HCL 25 MG TABLET PO SCH ×3 (08:30→19:40)
[2019-11-11] MEDS: CALCIUM ACETATE 667 MG CAPSULE PO SCH ×3 (08:30→17:00)
[2019-11-11] MEDS: GABAPENTIN 100 MG CAPSULE PO SCH ×3 (08:30→19:39)
[2019-11-11] MEDS: CLONIDINE HCL 0.1 MG TABLET PO SCH ×3 (08:30→19:39)
[2019-11-11] MEDS: NYSTATIN 15 GM POWDER TP SCH ×2 (08:31→21:24)
[2019-11-11] MEDS: NICOTINE 7 MG/ 24 HR PATCH TD SCH (08:31)
[2019-11-11] MEDS: HEPARIN SODIUM 5000UNIT/ML 1ML VIAL SQ SCH ×2 (09:00→19:37)
[2019-11-11 10:48] VITALS: BP 168/92
--- NOTE | 2019-11-11 15:37 | NUR ---
SENT 3RD HD TX TO [facility] INTAKE CALL TO [facility] DARINEL X2. ON SECOND CALL WAS ADVISED THAT PATIENT REFERRAL HAS NOT BEEN RECD AND WAS NOT A PERITONEAL PATIENT AT THAT FACILITY GIN MARINELLI IN AM WITH INTAKE
[2019-11-11] MEDS ORDERED: LORAZEPAM 0.5 MG TABLET ONE (15:46)
[2019-11-11 15:50] VITALS: BP 144/85
[2019-11-11] MEDS ORDERED: HYDROMORPHONE HCL 0.5 MG/0.5 ML ML ONE (15:59)
[2019-11-11] MEDS ORDERED: LORAZEPAM 0.5 MG TABLET PO ONE (17:15)
[2019-11-11 17:47] LABS: HEMATOCRIT 27.3 % (36-48)
[2019-11-11] MEDS: ATORVASTATIN CALCIUM 40 MG TABLET PO SCH (19:39)
[2019-11-11] MEDS: ROPINIROLE HCL 0.25 MG TABLET PO SCH (19:40)
[2019-11-11 20:03] VITALS: BP 140/64
[2019-11-11] MEDS: LORAZEPAM 0.5 MG TABLET PO PRN (23:31)
[2019-11-12 00:50] VITALS: BP 136/66
[2019-11-12] MEDS: HYDRALAZINE HCL 25 MG TABLET PO SCH ×3 (03:30→20:28)
[2019-11-12 04:23] VITALS: BP 164/84
--- NOTE | 2019-11-12 05:46 | NUR ---
patient refused to bathe
[2019-11-12] MEDS: CALCIUM ACETATE 667 MG CAPSULE PO SCH ×3 (05:55→16:20)
[2019-11-12 05:56] LABS: BASOPHILS % (AUTO) 0.4 % (0.0-5.0); EOSINOPHILS % (AUTO) 11.7 % (0.0-8.0); HEMATOCRIT 24.9 % (36-48); MEAN CORPUSCULAR HGB CONC 31.3 g/dL (32.0-36.0); MEAN CORPUSCULAR VOLUME 89.2 fL (79-99); MONOCYTES % (AUTO) 12.9 % (3.0-13.0); PLATELET COUNT (AUTO) 272 K/uL (130-400); RED BLOOD CELL COUNT(AUTO) 2.79 MIL/uL (4.00-5.50); RED CELL DISTRIBUTION WIDTH 15.2 % (11.0-15.5); WHITE BLOOD COUNT (AUTO) 4.9 K/uL (4.8-10.8)
[2019-11-12 06:08] LABS: CREATININE 6.9 mg/dL (0.5-1.5); POTASSIUM 4.4 mmol/L (3.5-5.1)
[2019-11-12 08:14] VITALS: BP 143/67
--- NOTE | 2019-11-12 08:34 | NUR ---
call to [facility] admission [phone] WAS ADVISED [facility] IS HANDLING THE ADMISSION. WORK HOURS START AT 10 AM , MESSAGE LEFT, EXPECTING CALL BACK. ALL INFO HAS NOW BEEN SENT TO INTAKE OF YESTERDAY NOON Addendum: 11/12/19 at 0836 by ELLE LOPEZ RN Amended: Links added.
[2019-11-12] MEDS: EPOETIN ALFA 10,000 UNIT/ML VIAL SQ SCH (09:10)
[2019-11-12] MEDS: FLUOXETINE HCL 20 MG CAPSULE PO SCH (09:10)
[2019-11-12] MEDS: CLONIDINE HCL 0.1 MG TABLET PO SCH ×3 (09:11→20:29)
[2019-11-12] MEDS: GABAPENTIN 100 MG CAPSULE PO SCH ×3 (09:11→20:28)
[2019-11-12] MEDS: ALLOPURINOL 100 MG TABLET PO SCH (09:11)
[2019-11-12] MEDS: LINAGLIPTIN 5 MG TABLET PO SCH (09:11)
[2019-11-12] MEDS: FAMOTIDINE 20MG TAB 20 MG TAB PO SCH ×2 (09:11→20:28)
[2019-11-12] MEDS: NICOTINE 7 MG/ 24 HR PATCH TD SCH (09:12)
[2019-11-12] MEDS: FOLIC ACID/VITAMIN B COMP W-C 1 CAP TAB PO SCH (09:12)
[2019-11-12] MEDS: LEVOTHYROXINE 150 MCG TABLET PO SCH (09:12)
[2019-11-12] MEDS: NYSTATIN 15 GM POWDER TP SCH ×2 (09:12→20:40)
[2019-11-12] MEDS: AMLODIPINE BESYLATE 5 MG TAB PO SCH (09:14)
--- NOTE | 2019-11-12 09:33 | NUR ---
Call from Mother SW received a call from patient's mother, Eloina Littlejohn. She informed SW that patient wants to leave hospital but was told she needed to speak to a Land Management Forester. SW informed mother that CM is working on setting up outpatient dialysis and it has not been finalized. SW explained to mother that GIN, Mejia Serrano had already called [facility] to follow up on referral but person working on case is not in yet. Mother asked if patient could be discharged while waiting for outpatient Hemodialysis to be set up. SW explained that if there is an issue and for some reason patient is not approved then CM will look for alternate placement which could take several days. SW explained that patient may end up back in the hospital needing dialysis so it was safer for patient to wait til arrangements were finalized. Mother stated she would let patient know. SW provided phone number for CM so patient's mother can follow up. CM made aware.
[2019-11-12 11:01] VITALS: BP 137/66
[2019-11-12] MEDS: HEPARIN SODIUM 5000UNIT/ML 1ML VIAL SQ SCH ×2 (11:03→20:29)
[2019-11-12] MEDS: ZOSYN 3.375GM+NS 50ML 50 ML IV SCH (11:48)
--- NOTE | 2019-11-12 12:30 | NUR ---
DIALYSIS PATIENT WAS DIALYZED FOR 3 HOURS REMOVING 3 LITERS OF FLUID. PATIENT TOLERATED WELL. PENDING DIALYSIS CHAIR AT DIALYSIS FACILITY.
--- NOTE | 2019-11-12 13:14 | NUR ---
RECORDS FROM [place] NEEDED FOR [facility] HD OP SET UP Call rec'd from Rohini at [facility] admission, stated record from first HD needed. Call to mom, no answer, spoke to patient having HD at this time, got name of [facility] [place] [facility], pt did not know number. Obtained number via [employer] and spoke to Ms. Mata at [facility], who confirmed patient was an HD client there prior to starting peritoneal dialysis and moving to another facility. WAN faxed for record of first time HD treatment. Awaiting response; patient made aware it could take a day or two to get final chair. Patient expressed that she wanted to leave to wait for HD chair- advised patient that was not recommended but she could go AMA if she wanted
--- NOTE | 2019-11-12 14:10 | NUR ---
NEPHROLOGY DR. FU IN TO SEE PATIENT. NEW ORDERS RECEIVED AND CARRIED OUT.
--- NOTE | 2019-11-12 15:04 | NUR ---
NUTRITION EDUCATION RD PROVIDED DIALYSIS NUTRITION EDUCATION VIA PHONE, EDUCATIONAL MATERIALS FLAGGED IN PT CHART. RD ANSWERED ALL OF PT QUESTIONS. PT VERBALIZED UNDERSTANDING. RD ENCOURAGED PT TO NOTIFY ADDITIONAL NEEDS OR CONCERNS ARISE. Addendum: 11/12/19 at [address] Amended: Links added.
--- NOTE | 2019-11-12 15:13 | NUR ---
STEPHANIE SCREEN - LOS X 6 PT ADMITTED CKD EXACERBATION. PT TOLERATING DIALYSIS DIET AT THIS TIME. PT REPORTS DISLIKES FOOD - PT FOOD PREFERENCES UPDATED. STEPHANIE PROVIDED NUTRITION EDUCATION VIA PHONE - REFERENCE MATERIALS FLAGGED IN PT CHART. PT VERBALIZED UNDERSTANDING. PT ALSO REQUESTS SHIV PERALES. STEPHANIE TO CONTINUE TO MONITOR. PLEASE NOTIFY ADDITIONAL NUTRITION CONCERNS ARISE. THANK YOU. Addendum: 11/12/19 at [address] Amended: Links added.
[2019-11-12] MEDS: HYDROMORPHONE HCL 2 MG/ML VIAL IVP PRN ×2 (15:15→21:19)
[2019-11-12 16:14] VITALS: BP 136/72
[2019-11-12 19:53] VITALS: BP 174/83
[2019-11-12] MEDS: LORAZEPAM 0.5 MG TABLET PO PRN (20:28)
[2019-11-12] MEDS: ATORVASTATIN CALCIUM 40 MG TABLET PO SCH (20:28)
[2019-11-12] MEDS: ROPINIROLE HCL 0.25 MG TABLET PO SCH (20:28)
[2019-11-13 00:01] VITALS: BP 157/81
[2019-11-13] MEDS: ZOSYN 3.375GM+NS 50ML 50 ML IV SCH ×2 (00:55→12:28)
[2019-11-13] MEDS: HYDROMORPHONE HCL 2 MG/ML VIAL IVP PRN ×2 (03:20→12:03)
[2019-11-13 03:53] VITALS: BP 147/76
[2019-11-13 04:16] LABS: HEMATOCRIT 25.8 % (36-48); MEAN CORPUSCULAR HEMOGLOBIN 28.9 pg (27.0-33.0); MEAN CORPUSCULAR HGB CONC 32.2 g/dL (32.0-36.0); MEAN CORPUSCULAR VOLUME 89.9 fL (79-99); PLATELET COUNT (AUTO) 301 K/uL (130-400); RED BLOOD CELL COUNT(AUTO) 2.87 MIL/uL (4.00-5.50); RED CELL DISTRIBUTION WIDTH 14.8 % (11.0-15.5); WHITE BLOOD COUNT (AUTO) 5.1 K/uL (4.8-10.8)
[2019-11-13 04:22] LABS: CREATININE 5.7 mg/dL (0.5-1.5); POTASSIUM 3.9 mmol/L (3.5-5.1)
[2019-11-13 05:06] LABS: BASOPHILS % (MANUAL) 1 % (0-2); EOSINOPHILS % (MANUAL) 14 % (1-6); LYMPHOCYTES % (MANUAL) 7 % (22-44); MAN.DIFF COMMENT-IMPRESSION MANUAL DIFFERENTIAL; MONOCYTES % (MANUAL) 8 % (2-9); SEGMENTED NEUTROPHILS % 70 % (40-70)
[2019-11-13 05:07] LABS: PLATELET MORPHOLOGY COMMENT ADEQUATE
[2019-11-13 08:15] VITALS: BP 157/70
[2019-11-13] MEDS: NICOTINE 7 MG/ 24 HR PATCH TD SCH (09:00)
[2019-11-13] MEDS: EPOETIN ALFA 10,000 UNIT/ML VIAL SQ SCH (09:00)
[2019-11-13] MEDS: FAMOTIDINE 20MG TAB 20 MG TAB PO SCH ×2 (09:37→20:25)
[2019-11-13] MEDS: FLUOXETINE HCL 20 MG CAPSULE PO SCH (09:38)
[2019-11-13] MEDS: LINAGLIPTIN 5 MG TABLET PO SCH (09:38)
[2019-11-13] MEDS: GABAPENTIN 100 MG CAPSULE PO SCH ×3 (09:39→20:25)
[2019-11-13] MEDS: FOLIC ACID/VITAMIN B COMP W-C 1 CAP TAB PO SCH (09:39)
[2019-11-13] MEDS: HEPARIN SODIUM 5000UNIT/ML 1ML VIAL SQ SCH ×2 (09:43→20:26)
[2019-11-13] MEDS: CLONIDINE HCL 0.1 MG TABLET PO SCH ×3 (09:46→20:24)
[2019-11-13] MEDS: AMLODIPINE BESYLATE 5 MG TAB PO SCH (09:53)
[2019-11-13] MEDS: ALLOPURINOL 100 MG TABLET PO SCH (09:53)
[2019-11-13] MEDS: HYDRALAZINE HCL 25 MG TABLET PO SCH ×3 (09:54→20:25)
[2019-11-13] MEDS: LEVOTHYROXINE 150 MCG TABLET PO SCH (09:56)
[2019-11-13] MEDS: CALCIUM ACETATE 667 MG CAPSULE PO SCH ×3 (10:01→17:33)
[2019-11-13] MEDS: NYSTATIN 15 GM POWDER TP SCH ×2 (10:03→20:27)
[2019-11-13 11:03] VITALS: BP 158/75
--- NOTE | 2019-11-13 14:34 | NUR ---
DR FU ROUNDED ON PATIENT ORDERS FOR CBC AND BMP IN AM AND PATIENT WILL HAVE DIALYSIS
[2019-11-13 15:36] VITALS: BP 146/66
[2019-11-13 20:00] VITALS: BP 160/72
[2019-11-13] MEDS: ROPINIROLE HCL 0.25 MG TABLET PO SCH (20:24)
[2019-11-13] MEDS: LORAZEPAM 0.5 MG TABLET PO PRN (20:24)
[2019-11-13] MEDS: ATORVASTATIN CALCIUM 40 MG TABLET PO SCH (20:25)
[2019-11-13] MEDS ORDERED: HYDROMORPHONE HCL 0.5 MG/0.5 ML ML ONE (22:34)
[2019-11-14] VITALS (7 sets, daily range): BP systolic 144–167; BP diastolic 68–111
[2019-11-14] MEDS: ZOSYN 3.375GM+NS 50ML 50 ML IV SCH (01:15)
--- NOTE | 2019-11-14 01:29 | NUR ---
PATIENT NOTED WITH LOOSE FOUL SMELLING STOOLS X4 THIS PM. STOOL COLLECTED AND SENT TO LAB FOR POSSIBLE CDIFF. PATIENT AWARE. TOTAL CARE RENDERED. REPOSITIONED FOR COMFORT. HOB ELEVATED. CALL LIGHT WITHIN REACH. WILL CONTINUE TO BE OBSERVED. Addendum: 11/14/19 at 0131 by TAL SIDHU RN RN Amended: Links added.
[2019-11-14 04:27] LABS: BASOPHILS % (AUTO) 0.4 % (0.0-5.0); EOSINOPHILS % (AUTO) 8.5 % (0.0-8.0); HEMATOCRIT 25.9 % (36-48); LYMPHOCYTES % (AUTO) 5.1 % (21.0-51.0); MEAN CORPUSCULAR HGB CONC 31.3 g/dL (32.0-36.0); MEAN CORPUSCULAR VOLUME 89.6 fL (79-99); MONOCYTES % (AUTO) 9.8 % (3.0-13.0); NEUTROPHILS % (AUTO) 75.6 % (40.0-77.0); PLATELET COUNT (AUTO) 308 K/uL (130-400); RED BLOOD CELL COUNT(AUTO) 2.89 MIL/uL (4.00-5.50); RED CELL DISTRIBUTION WIDTH 14.7 % (11.0-15.5); WHITE BLOOD COUNT (AUTO) 6.8 K/uL (4.8-10.8)
[2019-11-14 04:39] LABS: CREATININE 6.3 mg/dL (0.5-1.5); POTASSIUM 4.1 mmol/L (3.5-5.1)
[2019-11-14] MEDS: CALCIUM ACETATE 667 MG CAPSULE PO SCH ×3 (12:00→15:43)
[2019-11-14] MEDS: NICOTINE 7 MG/ 24 HR PATCH TD SCH (12:22)
[2019-11-14] MEDS: EPOETIN ALFA 10,000 UNIT/ML VIAL SQ SCH (12:23)
[2019-11-14] MEDS: GABAPENTIN 100 MG CAPSULE PO SCH ×3 (12:23→21:48)
[2019-11-14] MEDS: FLUOXETINE HCL 20 MG CAPSULE PO SCH (12:23)
[2019-11-14] MEDS: LINAGLIPTIN 5 MG TABLET PO SCH (12:24)
[2019-11-14] MEDS: CLONIDINE HCL 0.1 MG TABLET PO SCH ×3 (12:24→21:49)
[2019-11-14] MEDS: LEVOFLOXACIN 500 MG TABLET PO SCH (12:24)
[2019-11-14] MEDS: FAMOTIDINE 20MG TAB 20 MG TAB PO SCH ×2 (12:24→21:49)
[2019-11-14] MEDS: HYDRALAZINE HCL 25 MG TABLET PO SCH ×3 (12:25→17:21)
[2019-11-14] MEDS: ALLOPURINOL 100 MG TABLET PO SCH (12:25)
[2019-11-14] MEDS: AMLODIPINE BESYLATE 5 MG TAB PO SCH (12:25)
[2019-11-14] MEDS: FOLIC ACID/VITAMIN B COMP W-C 1 CAP TAB PO SCH (12:25)
[2019-11-14] MEDS: LEVOTHYROXINE 150 MCG TABLET PO SCH (12:26)
[2019-11-14] MEDS: HEPARIN SODIUM 5000UNIT/ML 1ML VIAL SQ SCH ×2 (12:30→22:12)
[2019-11-14] MEDS: NYSTATIN 15 GM POWDER TP SCH ×2 (12:36→22:13)
[2019-11-14] MEDS: METRONIDAZOLE 500 MG TABLET PO SCH ×3 (14:00→21:48)
[2019-11-14] MEDS ORDERED: HYDROMORPHONE HCL 0.5 MG/0.5 ML ML ONE (15:42)
[2019-11-14] MEDS: IRON SUCROSE COMPLEX 100 MG in SODIUM CHLORIDE 0.9% 50 ML IV SCH (15:44)
[2019-11-14] MEDS: ROPINIROLE HCL 0.25 MG TABLET PO SCH (21:49)
[2019-11-14] MEDS: ATORVASTATIN CALCIUM 40 MG TABLET PO SCH (21:49)
[2019-11-14] MEDS: HYDROMORPHONE HCL 2 MG/ML VIAL IVP PRN (22:06)
[2019-11-15] MEDS: HYDROMORPHONE HCL 2 MG/ML VIAL IVP PRN ×3 (03:30→23:22)
[2019-11-15 04:00] VITALS: BP 148/72
[2019-11-15 05:18] LABS: BASOPHILS % (AUTO) 0.6 % (0.0-5.0); EOSINOPHILS % (AUTO) 8.7 % (0.0-8.0); MEAN CORPUSCULAR HEMOGLOBIN 28.4 pg (27.0-33.0); MEAN CORPUSCULAR HGB CONC 30.8 g/dL (32.0-36.0); MEAN CORPUSCULAR VOLUME 92.2 fL (79-99); MONOCYTES % (AUTO) 12.3 % (3.0-13.0); NEUTROPHILS % (AUTO) 64.8 % (40.0-77.0); PLATELET COUNT (AUTO) 286 K/uL (130-400); RED BLOOD CELL COUNT(AUTO) 2.82 MIL/uL (4.00-5.50); WHITE BLOOD COUNT (AUTO) 4.7 K/uL (4.8-10.8)
[2019-11-15 05:38] LABS: CREATININE 5.5 mg/dL (0.5-1.5); POTASSIUM 3.8 mmol/L (3.5-5.1)
[2019-11-15 08:00] VITALS: BP 161/81
[2019-11-15] MEDS ORDERED: HYDROMORPHONE HCL 0.5 MG/0.5 ML ML ONE ×2 (08:34→16:48)
[2019-11-15] MEDS: AMLODIPINE BESYLATE 5 MG TAB PO SCH (08:37)
[2019-11-15] MEDS: METRONIDAZOLE 500 MG TABLET PO SCH ×3 (08:37→20:53)
[2019-11-15] MEDS: LEVOTHYROXINE 150 MCG TABLET PO SCH (08:38)
[2019-11-15] MEDS: GABAPENTIN 100 MG CAPSULE PO SCH ×3 (08:38→20:54)
[2019-11-15] MEDS: LINAGLIPTIN 5 MG TABLET PO SCH (08:38)
[2019-11-15] MEDS: ALLOPURINOL 100 MG TABLET PO SCH (08:38)
[2019-11-15] MEDS: CLONIDINE HCL 0.1 MG TABLET PO SCH ×3 (08:39→20:54)
[2019-11-15] MEDS: CALCIUM ACETATE 667 MG CAPSULE PO SCH ×3 (08:39→16:45)
[2019-11-15] MEDS: FAMOTIDINE 20MG TAB 20 MG TAB PO SCH ×2 (08:39→20:53)
[2019-11-15] MEDS: HYDRALAZINE HCL 25 MG TABLET PO SCH ×3 (08:39→20:54)
[2019-11-15] MEDS: FLUOXETINE HCL 20 MG CAPSULE PO SCH (08:39)
[2019-11-15] MEDS: EPOETIN ALFA 10,000 UNIT/ML VIAL SQ SCH (08:40)
[2019-11-15] MEDS: HEPARIN SODIUM 5000UNIT/ML 1ML VIAL SQ SCH ×2 (08:51→21:00)
[2019-11-15] MEDS: NICOTINE 7 MG/ 24 HR PATCH TD SCH (09:00)
[2019-11-15] MEDS: NYSTATIN 15 GM POWDER TP SCH ×2 (09:00→20:54)
[2019-11-15 16:00] VITALS: BP 157/72
[2019-11-15 20:00] VITALS: BP 141/63
[2019-11-15] MEDS: ROPINIROLE HCL 0.25 MG TABLET PO SCH (20:53)
[2019-11-15] MEDS: ATORVASTATIN CALCIUM 40 MG TABLET PO SCH (20:53)
[2019-11-16] VITALS: BP 156/66
--- NOTE | 2019-11-16 00:45 | NUR ---
URINARY RETENTION PT C/O PRESSURE TO PUBIC AREA, STATED SHE HAD NOT URINATED ALL DAY. BLADDER SCAN READING OF >181ML. ANALYST MICROBIOLOGY LAB EAMON MADE AWARE, RECEIVED OK TO STRAIGHT CATH X1. PT STRAIGHT CATH X1 500ML OF YELLOW URINE DRAINED OUT. PT STATED FELT MUCH BETTER. WILL CONTINUE TO MONITOR.
[2019-11-16 04:00] VITALS: BP 155/63
[2019-11-16 05:09] LABS: BASOPHILS % (AUTO) 0.7 % (0.0-5.0); EOSINOPHILS % (AUTO) 7.8 % (0.0-8.0); HEMATOCRIT 27.5 % (36-48); LYMPHOCYTES % (AUTO) 10.1 % (21.0-51.0); MEAN CORPUSCULAR HEMOGLOBIN 28.5 pg (27.0-33.0); MEAN CORPUSCULAR HGB CONC 30.9 g/dL (32.0-36.0); MEAN CORPUSCULAR VOLUME 92.3 fL (79-99); MONOCYTES % (AUTO) 12.5 % (3.0-13.0); PLATELET COUNT (AUTO) 308 K/uL (130-400); RED BLOOD CELL COUNT(AUTO) 2.98 MIL/uL (4.00-5.50); RED CELL DISTRIBUTION WIDTH 15.1 % (11.0-15.5); WHITE BLOOD COUNT (AUTO) 5.7 K/uL (4.8-10.8)
[2019-11-16 05:26] LABS: CREATININE 6.1 mg/dL (0.5-1.5); POTASSIUM 3.9 mmol/L (3.5-5.1)
[2019-11-16] MEDS: NYSTATIN 15 GM POWDER TP SCH ×2 (09:00→22:40)
[2019-11-16] MEDS: EPOETIN ALFA 10,000 UNIT/ML VIAL SQ SCH (09:00)
[2019-11-16] MEDS: AMLODIPINE BESYLATE 5 MG TAB PO SCH (09:19)
[2019-11-16] MEDS: LEVOTHYROXINE 150 MCG TABLET PO SCH (09:20)
[2019-11-16] MEDS: NICOTINE 7 MG/ 24 HR PATCH TD SCH (09:20)
[2019-11-16] MEDS: LINAGLIPTIN 5 MG TABLET PO SCH (09:20)
[2019-11-16] MEDS: FAMOTIDINE 20MG TAB 20 MG TAB PO SCH ×2 (09:20→21:29)
[2019-11-16] MEDS: GABAPENTIN 100 MG CAPSULE PO SCH ×3 (09:20→21:31)
[2019-11-16] MEDS: HYDRALAZINE HCL 25 MG TABLET PO SCH ×3 (09:20→21:30)
[2019-11-16] MEDS: CALCIUM ACETATE 667 MG CAPSULE PO SCH ×3 (09:21→17:30)
[2019-11-16] MEDS: METRONIDAZOLE 500 MG TABLET PO SCH ×3 (09:21→21:31)
[2019-11-16] MEDS: FLUOXETINE HCL 20 MG CAPSULE PO SCH (09:21)
[2019-11-16] MEDS: ALLOPURINOL 100 MG TABLET PO SCH (09:21)
[2019-11-16] MEDS: CLONIDINE HCL 0.1 MG TABLET PO SCH ×3 (09:21→21:31)
[2019-11-16] MEDS: HEPARIN SODIUM 5000UNIT/ML 1ML VIAL SQ SCH ×2 (09:31→21:32)
[2019-11-16 12:00] VITALS: BP 175/75
[2019-11-16] MEDS: LEVOFLOXACIN 500 MG TABLET PO SCH (13:14)
[2019-11-16] MEDS ORDERED: HYDROMORPHONE HCL 0.5 MG/0.5 ML ML ONE (14:52)
[2019-11-16 16:00] VITALS: BP 153/75
[2019-11-16 20:00] VITALS: BP 139/86
[2019-11-16] MEDS: HYDROMORPHONE HCL 2 MG/ML VIAL IVP PRN (20:56)
[2019-11-16] MEDS: ATORVASTATIN CALCIUM 40 MG TABLET PO SCH (21:30)
[2019-11-16] MEDS: ROPINIROLE HCL 0.25 MG TABLET PO SCH (22:39)
[2019-11-17] VITALS: BP 131/66
[2019-11-17 04:00] VITALS: BP 138/70
[2019-11-17] MEDS: HYDROMORPHONE HCL 2 MG/ML VIAL IVP PRN (04:33)
[2019-11-17 05:33] LABS: MEAN CORPUSCULAR HEMOGLOBIN 28.4 pg (27.0-33.0); MEAN CORPUSCULAR HGB CONC 31.1 g/dL (32.0-36.0); MEAN CORPUSCULAR VOLUME 91.2 fL (79-99); PLATELET COUNT (AUTO) 288 K/uL (130-400); RED BLOOD CELL COUNT(AUTO) 2.96 MIL/uL (4.00-5.50); RED CELL DISTRIBUTION WIDTH 15.1 % (11.0-15.5); WHITE BLOOD COUNT (AUTO) 5.5 K/uL (4.8-10.8)
[2019-11-17 05:48] LABS: ALBUMIN 1.7 g/dL (3.5-5.0); BILIRUBIN,TOTAL 0.2 mg/dL (0.2-1.0); CREATININE 6.7 mg/dL (0.5-1.5); POTASSIUM 4.3 mmol/L (3.5-5.1); TOTAL PROTEIN, SERUM 5.4 g/dL (6.0-8.3)
[2019-11-17 08:00] VITALS: BP 157/71
[2019-11-17] MEDS: CALCIUM ACETATE 667 MG CAPSULE PO SCH ×2 (08:00→11:37)
[2019-11-17] MEDS: CLONIDINE HCL 0.1 MG TABLET PO SCH ×2 (09:00→14:52)
[2019-11-17] MEDS: NYSTATIN 15 GM POWDER TP SCH (09:00)
[2019-11-17] MEDS: HYDRALAZINE HCL 25 MG TABLET PO SCH ×2 (09:00→14:50)
[2019-11-17] MEDS: GABAPENTIN 100 MG CAPSULE PO SCH ×2 (09:00→14:52)
[2019-11-17] MEDS: METRONIDAZOLE 500 MG TABLET PO SCH ×2 (09:00→14:50)
--- NOTE | 2019-11-17 10:30 | NUR ---
[facility] STILL [facility] INFO FOR FINALIZATION OF HD CHAIR SPOKE TO COMPA- UPDATED HER WITH NUMBERS FROM [place] WHERE PATIENTS PREVIOUSLY LIVED- NUMBERS [phone] CENTER WHERE PT REVIOUSLY DID HER PD, AND [phone] CENTER WHERE PATIENT PREVIOUSLY DID HER HD, INCLUDING HER HD START. COMPA STATES THAT INTAKE IS STILL MISSING AND H/P BY DR. FU, VACCINE RECORDS AND A PLAN OF CARE. STATES SHE WILL CONTACT [facility] DIRECTLY AND SEE IF SHE CAN GET MORE INFO FROM THEM. CM TO FOLLOW Addendum: 11/17/19 at 1128 by ELLE LOPEZ RN CM Amended: Links added.
[2019-11-17 11:14] VITALS: BP 119/52
[2019-11-17] MEDS: LINAGLIPTIN 5 MG TABLET PO SCH (11:37)
[2019-11-17] MEDS: FLUOXETINE HCL 20 MG CAPSULE PO SCH (11:37)
[2019-11-17] MEDS: FOLIC ACID/VITAMIN B COMP W-C 1 CAP TAB PO SCH (11:38)
[2019-11-17] MEDS: ALLOPURINOL 100 MG TABLET PO SCH (11:38)
[2019-11-17] MEDS: FAMOTIDINE 20MG TAB 20 MG TAB PO SCH (11:38)
[2019-11-17] MEDS: AMLODIPINE BESYLATE 5 MG TAB PO SCH (11:38)
[2019-11-17] MEDS: NICOTINE 7 MG/ 24 HR PATCH TD SCH (11:39)
[2019-11-17] MEDS: EPOETIN ALFA 10,000 UNIT/ML VIAL SQ SCH (11:39)
[2019-11-17] MEDS: LEVOTHYROXINE 150 MCG TABLET PO SCH (11:39)
[2019-11-17] MEDS: HEPARIN SODIUM 5000UNIT/ML 1ML VIAL SQ SCH (11:42)
--- NOTE | 2019-11-17 15:25 | NUR ---
Call from Mother VERA received a call from patient's mother, Eloina Littlejohn. She was follow up on status of outpatient Hemodialysis. VERA informed mother that Mejia GREENFIELD was still working on securing a chair at local dialysis facility. VERA informed mother that paperwork from previous dialysis center was pending for [facility]. SW contacted patient and asked what facility was assisting her with peritoneal dialysis. Patient was not able to remember the name of facility but address -[facility] in [place]. VERA informed patient that this address was for [facility]. Patient stated that she had not seen Investigator Claims but had only picked up machine and supplies. SW contacted CM and informed her of what patient had informed SW. CM aware and had already requested records from [facility] in [place]. Patient's records will be forwarded to [facility] in effort to have patient provided with hemodialysis chair. Mother made aware.
--- NOTE | 2019-11-17 15:26 | NUR ---
FRES[facility]IUS TRANSFER PACKET SENT ON TO [facility] FOUND OUT FROM [facility] THAT PATIENT HAD INDEED BEEN TRANSFERRED OFFICIALLY FROM [place] TO A [facility] FAC[facility] IN [facility]. REC/D WAN FROM PATIENT, SPOKE TO ANTON AT THE CENTER AND PKT FAXED TO US. PKT SENT ON TO [facility] AND CALL TO COMPA TO BE EXPECTING IT. CALL RECD FORM VERA BETHEA THAT PATIENT'S MOTHER IS INQUIRING ABOUT WHEN HD CHAIR WOULD BE AVAILABLE. CALL TO [place] [place], MOM, ADVISED HER THAT THE FRESINIUS TRANSFER PKT HAS BEEN FAXED ON TO [facility]. ADVISED MOM THAT THE HOLD UP WAS EXACERBATED BY THE PATIENT NOT BEING FORTHCOMING ABOUT HER TRANSFER ARRANGEMENTS. MOM VERBALIZED UNDERSTANDING WILL BE WAITING FOR CHAIR TIME
[2019-11-17 16:00] VITALS: BP 157/78
--- NOTE | 2019-11-17 16:00 | NUR ---
CHAIR TIME MWF 215 PM [facility] JASVIR MELENDEZ ADVISED PATIENT, MORELIA TAYLOR RHETT Addendum: 11/17/19 at 1641 by ELLE LOPEZ RN CM Amended: Links added.
== END 2019-11-17 20:18 | disposition home or self-care (01) | DRG 682 ==
LOC: EDH 23:58 → EDHIP 11-06 02:14 → 3AH 11-06 03:11
PROVIDERS: ADMIT Internal Medicine; ATTEND Internal Medicine
PROC: 5A1D70Z Performance of Urinary Filtration, Intermittent, Less than 6 Hours Per Day (ICD-10-PCS; 2019-11-06)
PROC: B51W1ZZ Fluoroscopy of Dialysis Shunt/Fistula using Low Osmolar Contrast (ICD-10-PCS; 2019-11-06)
PROC: 5A1D70Z Performance of Urinary Filtration, Intermittent, Less than 6 Hours Per Day (ICD-10-PCS; 2019-11-07)
PROC: 5A09357 Assistance with Respiratory Ventilation, Less than 24 Consecutive Hours, Continuous Positive Airway Pressure (ICD-10-PCS; 2019-11-08)
PROC: 5A09457 Assistance with Respiratory Ventilation, 24-96 Consecutive Hours, Continuous Positive Airway Pressure (ICD-10-PCS; 2019-11-09)
PROC: 30233R1 Transfusion of Nonautologous Platelets into Peripheral Vein, Percutaneous Approach (ICD-10-PCS; principal; 2019-11-10)
PROC: 5A1D70Z Performance of Urinary Filtration, Intermittent, Less than 6 Hours Per Day (ICD-10-PCS; 2019-11-10)
PROC: 5A1D70Z Performance of Urinary Filtration, Intermittent, Less than 6 Hours Per Day (ICD-10-PCS; 2019-11-12)
PROC: 5A1D70Z Performance of Urinary Filtration, Intermittent, Less than 6 Hours Per Day (ICD-10-PCS; 2019-11-14)
PROC: 5A09357 Assistance with Respiratory Ventilation, Less than 24 Consecutive Hours, Continuous Positive Airway Pressure (ICD-10-PCS; 2019-11-15)
PROC: 5A1D70Z Performance of Urinary Filtration, Intermittent, Less than 6 Hours Per Day (ICD-10-PCS; 2019-11-17)
DX: I12.0 Hypertensive chronic kidney disease with stage 5 chronic kidney disease or end stage renal disease (principal); J81.0 Acute pulmonary edema; J96.91 Respiratory failure, unspecified with hypoxia; J18.9 Pneumonia, unspecified organism; N18.6 End stage renal disease; E87.1 Hypo-osmolality and hyponatremia; Z68.41 Body mass index [BMI] 40.0-44.9, adult; Z16.24 Resistance to multiple antibiotics; E87.70 Fluid overload, unspecified; D63.1 Anemia in chronic kidney disease; E66.01 Morbid (severe) obesity due to excess calories; E03.9 Hypothyroidism, unspecified; E11.22 Type 2 diabetes mellitus with diabetic chronic kidney disease; E11.40 Type 2 diabetes mellitus with diabetic neuropathy, unspecified; E11.65 Type 2 diabetes mellitus with hyperglycemia; E78.00 Pure hypercholesterolemia, unspecified; E78.5 Hyperlipidemia, unspecified; E88.81 Metabolic syndrome and other insulin resistance; F17.210 Nicotine dependence, cigarettes, uncomplicated; G47.33 Obstructive sleep apnea (adult) (pediatric); I16.0 Hypertensive urgency; Z74.01 Bed confinement status; Z90.5 Acquired absence of kidney; Z91.19 Patient's noncompliance with other medical treatment and regimen; Z91.81 History of falling; Z99.2 Dependence on renal dialysis; N76.2 Acute vulvitis; Z88.8 Allergy status to other drugs, medicaments and biological substances; R53.81 Other malaise
CPT/HCPCS: 36415; 36430; 36600; 36901; 71045; 74176; 80048; 80053; 80061; 82040; 82270; 82550; 82565; 82728; 82803; 82948; 83036; 83540; 83550; 83735; 83880; 84100; 84484; 84520; 85014; 85018; 85025; 85027; 85610; 85730; 86701; 86704; 86706; 86850; 86900; 86901; 86922; 87070; 87076; 87077; 87186; 87324; 87340; 87390; 87520; 90935; 93005; 93970; 94660; 97039; C1894; G0378; J0360; J0885; J1170; J1644; J1756; J2250; J2543; J3010; J3490; J7070; P9016; Q9967

== ENCOUNTER 2019-11-27 23:42 | Inpatient (IN) | payer MEDICARE ==
[~2019-11-27] VITALS: Ht 172.7 cm; Wt 123.9 kg
[2019-11-28 00:46] LABS: CREATININE 6.6 mg/dL (0.5-1.5)
[2019-11-28 00:48] LABS: BASOPHILS % (AUTO) 1.1 % (0.0-5.0); EOSINOPHILS % (AUTO) 7.5 % (0.0-8.0); HEMATOCRIT 24.9 % (36-48); LYMPHOCYTES % (AUTO) 11.8 % (21.0-51.0); MEAN CORPUSCULAR HEMOGLOBIN 34.9 pg (27.0-33.0); MEAN CORPUSCULAR HGB CONC 36.1 g/dL (32.0-36.0); MEAN CORPUSCULAR VOLUME 96.5 fL (79-99); MONOCYTES % (AUTO) 13.3 % (3.0-13.0); PLATELET COUNT (AUTO) 368 K/uL (130-400); RED BLOOD CELL COUNT(AUTO) 2.58 MIL/uL (4.00-5.50); RED CELL DISTRIBUTION WIDTH 15.9 % (11.0-15.5); WHITE BLOOD COUNT (AUTO) 6.1 K/uL (4.8-10.8)
[2019-11-28 00:51] LABS: ALBUMIN 2.2 g/dL (3.5-5.0); BILIRUBIN,TOTAL 0.2 mg/dL (0.2-1.0); TOTAL PROTEIN, SERUM 6.4 g/dL (6.0-8.3)
[2019-11-28 01:25] LABS: B-TYPE NATRIURETIC PEPTIDE 723 pg/mL (0-100)
[2019-11-28] MEDS ORDERED: GLUCAGON 1MG KIT 1 MG ML IM PRN (02:45)
[2019-11-28] MEDS ORDERED: IPRATROPIUM/ALBUTEROL SULFATE 3 ML SOLUTION IH PRN (02:45)
[2019-11-28] MEDS ORDERED: DEXTROSE 50%-WATER 50 ML DISP.SYRIN IV PRN (02:45)
[2019-11-28] MEDS ORDERED: ONDANSETRON HCL 4 MG/2 ML VIAL IVP PRN (02:45)
[2019-11-28] MEDS ORDERED: ACETAMINOPHEN 325 MG TAB PO PRN (02:45)
[2019-11-28 02:57] VITALS: BP 192/99
[2019-11-28 06:21] LABS: HEMATOCRIT 27.9 % (36-48); MEAN CORPUSCULAR HEMOGLOBIN 27.8 pg (27.0-33.0); MEAN CORPUSCULAR HGB CONC 29.4 g/dL (32.0-36.0); MEAN CORPUSCULAR VOLUME 94.6 fL (79-99); RED BLOOD CELL COUNT(AUTO) 2.95 MIL/uL (4.00-5.50); RED CELL DISTRIBUTION WIDTH 15.9 % (11.0-15.5); WHITE BLOOD COUNT (AUTO) 5.6 K/uL (4.8-10.8)
[2019-11-28 06:37] LABS: CREATININE 6.7 mg/dL (0.5-1.5); POTASSIUM 4.6 mmol/L (3.5-5.1)
[2019-11-28] MEDS: INSULIN R PO SS1/2 SQ SCH ×4 (07:30→21:00)
[2019-11-28] MEDS: ALLOPURINOL 100 MG TABLET PO SCH (07:50)
[2019-11-28] MEDS: LEVOTHYROXINE 75 MCG TABLET PO SCH (07:50)
[2019-11-28] MEDS: AMLODIPINE BESYLATE 5 MG TAB PO SCH (07:50)
[2019-11-28] MEDS: LINAGLIPTIN 5 MG TABLET PO SCH (07:51)
[2019-11-28] MEDS: FLUOXETINE HCL 20 MG CAPSULE PO SCH (07:51)
[2019-11-28] MEDS: CALCIUM ACETATE 667 MG CAPSULE PO SCH ×3 (07:51→18:35)
[2019-11-28 08:00] VITALS: BP 161/95
[2019-11-28] MEDS ORDERED: FOLIC ACID/VITAMIN B COMP W-C 1 CAP TAB PO SCH (09:00)
[2019-11-28] MEDS: PANTOPRAZOLE 40 MG/VIAL IVP SCH (09:00)
[2019-11-28] MEDS: HYDRALAZINE HCL 25 MG TABLET PO SCH ×3 (09:17→21:36)
[2019-11-28] MEDS: CLONIDINE HCL 0.1 MG TABLET PO SCH ×3 (09:17→21:37)
[2019-11-28] MEDS: GABAPENTIN 100 MG CAPSULE PO SCH ×3 (09:18→21:38)
[2019-11-28 12:00] VITALS: BP 165/86
--- NOTE | 2019-11-28 13:09 | NUR ---
RD NOTIFICATION PT ADMITTED FOR HYPOXEMIA, FLUID OVERLOAD, RENAL FAILURE. PT WITH RENAL DIALYSIS, 75GM CC DIET ORDER IN PLACE. 1200ML FLUID RESTRICTION. NOTED 4+ GENERALIZED EDEMA, PER EMR. PT RECEIVING DIALYSIS AND LETHARGIC AT TIME OF VISIT. RD TO FOLLOW UP WITH DIALYSIS AND DIABETES NUTRITION EDUCATION. RD TO CONTINUE TO MONITOR. PLEASE NOTIFY ADDITIONAL NUTRITION CONCERNS ARISE. THANK YOU. Addendum: 11/28/19 at [address] Amended: Links added.
--- NOTE | 2019-11-28 15:25 | NUR ---
1519 patient signed IM Letter, I faxed IM Lette to [phone] and placed in chart under consent tab.
[2019-11-28 16:00] VITALS: BP 211/96
--- NOTE | 2019-11-28 17:00 | NUR ---
ELEVATED BP: PT SITTING AT SIDE IF THE BED. BLOOD PRESSURE 211/96 NON-SYMPTOMATIC. PT COMPLAINS OF SOME PAIN TO LEGS. RECHECKED BP 30 MIN LATER 209/97, PT APPEARS IN NO APPARENT DISTRESS AND IS NON-SYMPTOMATIC. WILL CONTACT MD AND CONTINUE TO MONITOR PT.
--- NOTE | 2019-11-28 18:10 | NUR ---
CALLED DR FU'S OFFICE: NO ANSWER. PAGED DR FU, PENDING CALL BACK. Addendum: 11/28/19 at 1824 by CORRINE VELASQUEZ LVN RN ABOVE NOTE IS REGARDING PTS ELEVATED BLOOD PRESSURE.
[2019-11-28] MEDS ORDERED: CLONIDINE HCL 0.1 MG TABLET PO PRN (20:15)
[2019-11-28] MEDS ORDERED: TRAMADOL HCL 50 MG TABLET PO PRN (20:15)
[2019-11-28] MEDS ORDERED: ROPINIROLE HCL 0.25 MG TABLET PO SCH (21:00)
[2019-11-28] MEDS ORDERED: QUETIAPINE FUMARATE 25 MG TAB PO SCH (21:00)
[2019-11-28] MEDS ORDERED: TRAZODONE HCL 50 MG TAB PO SCH (21:00)
[2019-11-28] MEDS ORDERED: ATORVASTATIN CALCIUM 40 MG TABLET PO SCH (21:00)
[2019-11-28] MEDS ORDERED: AMLODIPINE BESYLATE 5 MG TAB PO SCH (21:15)
[2019-11-28 21:41] VITALS: BP 167/88
[2019-11-29 00:24] VITALS: BP 156/99
[2019-11-29 04:36] VITALS: BP 161/83
[2019-11-29 05:25] LABS: BASOPHILS % (AUTO) 0.7 % (0.0-5.0); EOSINOPHILS % (AUTO) 10.2 % (0.0-8.0); HEMATOCRIT 26.6 % (36-48); LYMPHOCYTES % (AUTO) 12.7 % (21.0-51.0); MEAN CORPUSCULAR HEMOGLOBIN 29.6 pg (27.0-33.0); MEAN CORPUSCULAR HGB CONC 31.2 g/dL (32.0-36.0); MONOCYTES % (AUTO) 11.8 % (3.0-13.0); NEUTROPHILS % (AUTO) 63.9 % (40.0-77.0); PLATELET COUNT (AUTO) 326 K/uL (130-400); RED CELL DISTRIBUTION WIDTH 15.6 % (11.0-15.5); WHITE BLOOD COUNT (AUTO) 4.3 K/uL (4.8-10.8)
[2019-11-29 05:47] LABS: CREATININE 5.3 mg/dL (0.5-1.5); PHOSPHORUS 5.9 mg/dL (2.5-4.9)
[2019-11-29] MEDS: INSULIN R PO SS1/2 SQ SCH ×3 (07:05→16:30)
[2019-11-29] MEDS: LEVOTHYROXINE 75 MCG TABLET PO SCH (07:36)
[2019-11-29 08:00] VITALS: BP 182/78
[2019-11-29] MEDS: CALCIUM ACETATE 667 MG CAPSULE PO SCH ×3 (09:38→16:40)
[2019-11-29] MEDS: PANTOPRAZOLE 40 MG/VIAL IVP SCH (09:39)
[2019-11-29] MEDS: CLONIDINE HCL 0.1 MG TABLET PO SCH ×2 (09:39→15:26)
[2019-11-29] MEDS: GABAPENTIN 100 MG CAPSULE PO SCH ×2 (09:40→15:26)
[2019-11-29] MEDS: HYDRALAZINE HCL 25 MG TABLET PO SCH ×2 (09:40→15:26)
[2019-11-29] MEDS: ALLOPURINOL 100 MG TABLET PO SCH (09:41)
[2019-11-29] MEDS: FLUOXETINE HCL 20 MG CAPSULE PO SCH (09:41)
[2019-11-29] MEDS: AMLODIPINE BESYLATE 5 MG TAB PO SCH (09:41)
[2019-11-29] MEDS: LINAGLIPTIN 5 MG TABLET PO SCH (09:41)
[2019-11-29 12:00] VITALS: BP 190/93
--- NOTE | 2019-11-29 15:01 | NUR ---
D/C PLAN CM spoke to patient's mother regarding d/c planning. Pt is readmission from less than two weeks ago. Reports pt is attending HD at [facility]. States pt missed HD appointment on Sunday due to transportation issues. States they are in process of applying for medicaid. CM advised mother to speak to manager social services at dialysis center for further assistance. Verbalized understanding. Also explained to mother that alternate transportation will need to be arranged so that pt can be compliant. Verbalized understanding. Denies any changes to home setting. Plan to home with mother. CM to f/u. Addendum: 11/29/19 at 1505 by TEE FITZGERALD CM Amended: Links added.
[2019-11-29 16:00] VITALS: BP 158/79
--- NOTE | 2019-11-29 17:56 | NUR ---
HAD NOTIFIED DR RUBIO PATIENT WANTING TO GO HOME STATES FEELS FINE 02 SAT CHECKED IN RA AT 93 PERCENT . PER HAD NOT DISCHARGED HER YET DUE TO PATIENT STATING NEEDS OXYGEN . PER TO NAHUM HIM BACK AFTER EXPLAINING TO HER ON HER STATING SHE NEEDED OXYGEN .
--- NOTE | 2019-11-29 17:58 | NUR ---
EXPLAINED TO PATIENT ON HER CONVERSATION WITH THE DOCTOR AT EARLIER TIME . PER PATIENT STATE SHE DID HAVE REQUEST OXYGEN BUT BEFORE HER DIALYSIS TREATMENT BUT AFTER HER TREATMENT FEELS BETTER. CALLED BACK TO DR RUBIO ON PATIENT STATEMENT .PER MD NOT CLEARED TO GO HOME WITH 02 SAT AT 93 PERCENT IN RA AFTER A SHORT TIME AND WILL NEED TO SIGN AMA IF SHE DECIDES TO WANT TO GO HOME .. EXPLAINED TO PATIENT ,PER PT WILL CALL HER MOM AND LET US KNOW IF SHE DECIDED TO LEAVE AMA .
--- NOTE | 2019-11-29 18:00 | NUR ---
HAD NOTIFIED DR TELLEZ PATIENT STILL WANTING TO LEAVE , PER MD SHE CAN BY SIGNING AMA.. PATIENT SIGNING AMA FORM . EXPLAINED TO HER SINCE SHE IS LEAVING AMA DR RUBIO NOR HOSPITAL STAFF RESPONSIBLE FOR ANY COMPLICATIONS SHE MIGHT HAVE DUE TO NOT BEING CLEARED.. PATIENT VERBILIZED UNDERSTANDING . LET HER KNOW IN CASE OF AN EMERGENCY TO CELESTE 911 OR GO TO YOUR NEAREST EMERGENCY ROOM .. CHARGE NURSE CAITLYN AND CORRECTION OFFICER REFORMATORY AWARE
== END 2019-11-29 19:10 | disposition left against medical advice (07) | DRG 640 ==
LOC: EDH 23:42 → OBSVTOIN 11-28 01:15 → EDHIP 11-28 01:15 → 3AH 11-28 02:05
PROVIDERS: ADMIT Internal Medicine Nephrology; ATTEND Internal Medicine Nephrology
PROC: 5A1D70Z Performance of Urinary Filtration, Intermittent, Less than 6 Hours Per Day (ICD-10-PCS; principal; 2019-11-28)
PROC: 5A1D70Z Performance of Urinary Filtration, Intermittent, Less than 6 Hours Per Day (ICD-10-PCS; 2019-11-29)
DX: E87.70 Fluid overload, unspecified (principal); N18.6 End stage renal disease; J81.0 Acute pulmonary edema; Z68.41 Body mass index [BMI] 40.0-44.9, adult; I12.0 Hypertensive chronic kidney disease with stage 5 chronic kidney disease or end stage renal disease; R09.02 Hypoxemia; D64.9 Anemia, unspecified; E11.22 Type 2 diabetes mellitus with diabetic chronic kidney disease; E66.9 Obesity, unspecified; E78.5 Hyperlipidemia, unspecified; Z99.2 Dependence on renal dialysis; Z90.5 Acquired absence of kidney; Z91.19 Patient's noncompliance with other medical treatment and regimen; Z91.15 Patient's noncompliance with renal dialysis
CPT/HCPCS: 36415; 71045; 80048; 80053; 82550; 82948; 83605; 83880; 84100; 84484; 85025; 85027; 90935; 93005; 94664; 99291; C9113; G0378

== ENCOUNTER 2019-12-07 01:50 | Inpatient (IN) | payer MEDICARE ==
[~2019-12-07] VITALS: Ht 172.7 cm; Wt 103.5 kg
[2019-12-07] VITALS (11 sets, daily range): BP systolic 146–207; BP diastolic 79–107
[~2019-12-07 01:50] MED LIST changes: +AMLO-258 PO; -AMLO10TA7 PO
[2019-12-07] MEDS ORDERED: MORPHINE SULFATE 4 MG/1ML SYG ONE (02:21)
[2019-12-07 02:25] LABS: BASOPHILS % (AUTO) 0.7 % (0.0-5.0); EOSINOPHILS % (AUTO) 6.8 % (0.0-8.0); HEMATOCRIT 26.8 % (36-48); LYMPHOCYTES % (AUTO) 9.8 % (21.0-51.0); MEAN CORPUSCULAR HEMOGLOBIN 29.5 pg (27.0-33.0); MEAN CORPUSCULAR HGB CONC 32.1 g/dL (32.0-36.0); MEAN CORPUSCULAR VOLUME 91.8 fL (79-99); MONOCYTES % (AUTO) 10.9 % (3.0-13.0); NEUTROPHILS % (AUTO) 71.2 % (40.0-77.0); PLATELET COUNT (AUTO) 342 K/uL (130-400); RED BLOOD CELL COUNT(AUTO) 2.92 MIL/uL (4.00-5.50); RED CELL DISTRIBUTION WIDTH 15.4 % (11.0-15.5); WHITE BLOOD COUNT (AUTO) 5.4 K/uL (4.8-10.8)
[2019-12-07 02:34] LABS: CREATININE 5.6 mg/dL (0.5-1.5); POTASSIUM 3.7 mmol/L (3.5-5.1)
[2019-12-07 02:39] LABS: ALBUMIN 2.3 g/dL (3.5-5.0); BILIRUBIN,TOTAL 0.2 mg/dL (0.2-1.0); TOTAL PROTEIN, SERUM 6.5 g/dL (6.0-8.3)
[2019-12-07] MEDS ORDERED: LORAZEPAM 2 MG/ML 1 ML VIAL ONE (02:48)
[2019-12-07] MEDS ORDERED: ONDANSETRON HCL 4 MG/2 ML VIAL IV PRN (04:45)
[2019-12-07] MEDS ORDERED: HYDRALAZINE HCL 20 MG/ML VIAL ONE (05:05)
[2019-12-07] MEDS ORDERED: GLUCAGON 1MG KIT 1 MG ML IM PRN (06:30)
[2019-12-07 07:30] LABS: ABG BASE EXCESS -1.5 mmol/L (-2.0-3.0); ABG HCO3 26.7 mmol/L (21.0-28.0); ABG OXYGEN SATURATION 93.8 % (95.0-99.0); ABG PCO2 59 mmHg (32-45)
--- NOTE | 2019-12-07 07:45 | NUR ---
RECEIVED FROM ED VIA STRETCHER. TRANSFERRED TO BED WITH USE OF SLIDE BOARD. PT. SNORING. OPENS EYES TO VERBAL COMMAND BUT DROWSY. DENIES ANY C/O AT THIS TIME. BED LOW, SIDE RAILS UP X3. CALL LIGHT WITHIN REACH, VERBALIZED ABILITY TO USE.
[2019-12-07 08:47] LABS: BASOPHILS % (AUTO) 1.1 % (0.0-5.0); EOSINOPHILS % (AUTO) 7.4 % (0.0-8.0); HEMATOCRIT 29.8 % (36-48); LYMPHOCYTES % (AUTO) 9.4 % (21.0-51.0); MEAN CORPUSCULAR HEMOGLOBIN 28.3 pg (27.0-33.0); MEAN CORPUSCULAR HGB CONC 30.2 g/dL (32.0-36.0); MEAN CORPUSCULAR VOLUME 93.7 fL (79-99); NEUTROPHILS % (AUTO) 68.7 % (40.0-77.0); PLATELET COUNT (AUTO) 348 K/uL (130-400); RED BLOOD CELL COUNT(AUTO) 3.18 MIL/uL (4.00-5.50); RED CELL DISTRIBUTION WIDTH 15.4 % (11.0-15.5); WHITE BLOOD COUNT (AUTO) 5.2 K/uL (4.8-10.8)
[2019-12-07 08:59] LABS: INR 0.93 (0.85-1.15); PROTHROMBIN TIME 10.1 SEC (9.6-11.6)
[2019-12-07] MEDS ORDERED: FAMOTIDINE/PF 20 MG/2 ML VIAL IV SCH (09:00)
--- NOTE | 2019-12-07 09:00 | NUR ---
PT. CONTINUES ASLEEP. AROUSABLE BUT DROUSY. UNABLE TO PERFORM ADMISSION DATABASE.
[2019-12-07 09:12] LABS: ALBUMIN 2.4 g/dL (3.5-5.0); BILIRUBIN,TOTAL 0.2 mg/dL (0.2-1.0); CREATININE 5.7 mg/dL (0.5-1.5); POTASSIUM 3.9 mmol/L (3.5-5.1); TOTAL PROTEIN, SERUM 6.9 g/dL (6.0-8.3); TROPONIN I 0.06 ng/mL (0.00-0.06)
[2019-12-07 09:32] LABS: B-TYPE NATRIURETIC PEPTIDE 1320 pg/mL (0-100)
[2019-12-07] MEDS: FUROSEMIDE 10 MG/ML 2ML VIAL IV SCH ×2 (09:55→22:45)
--- NOTE | 2019-12-07 10:22 | NUR ---
NOTIFIED DR. Jg BHAKTA RE:CONSULT, VERBALIZED UNDERSTANDING. STATES WILL BE IN TO SEE PT.
[2019-12-07] MEDS: HYDRALAZINE HCL 20 MG/ML VIAL IV PRN (12:48)
--- NOTE | 2019-12-07 13:00 | NUR ---
DR. Jg BHAKTA PERFORMED LEFT USG THORACENTESIS UNDER STERILE TECHNIQUE. PT. TOLERATED W/O C/O. APPROXIMATELY 900ML CLEAR YELLOW FLUID OBTAINED. PT. DENIES ANY C/O SOB POST PROCEDURE. NO CREPITUS NOTED. PT. WITH BIPAP IN PLACE DURING PROCEDURE. CALL LIGHT WITHIN REACH, VERBALIZED ABILITY TO USE. BED LOW, SIDE RAILS UP X3. ROOM DOOR OPEN, VISIBLE FROM NURSE'S STATION.
[2019-12-07] MEDS ORDERED: LABETALOL 20 MG/4 ML DISP.SYRIN IV PRN (13:15)
--- NOTE | 2019-12-07 14:58 | NUR ---
DR. Lionel LINCOLN IN ROOM ASSESSING/SPEAKING WITH PT.
[2019-12-07 15:32] LABS: APPEARANCE BODY FLUID CLEAR (CLEAR); COLOR,BODY FLUID XANTHOCHROMIC (LT YELLOW); SPECIMENTYPE,BODY FLUID PLEURAL; TOTAL VOLUME,BODY FLUID 900 mL
[2019-12-07 15:39] LABS: BODY FLUID WBC 45 /cu. mm.
[2019-12-07 15:40] LABS: BF BASOPHIL 0 %; BF EOSINOPHIL 0 %; BF LYMPHOCYTE 35 %; BF MESOTHELIAL 55 %; BF MONOCYTE 5 %; BODY FLUID RBC 34 /cu. mm.
[2019-12-07] MEDS ORDERED: AMLODIPINE BESYLATE 5 MG TAB ONE (16:13)
[2019-12-07] MEDS ORDERED: HYDRALAZINE HCL 25 MG TABLET ONE (16:13)
[2019-12-07] MEDS ORDERED: CLONIDINE HCL 0.1 MG TABLET ONE (16:13)
[2019-12-07] MEDS: HYDRALAZINE HCL 25 MG TABLET PO SCH ×2 (16:15→20:14)
[2019-12-07] MEDS: AMLODIPINE BESYLATE 5 MG TAB PO SCH (16:15)
[2019-12-07] MEDS: CLONIDINE HCL 0.1 MG TABLET PO SCH ×2 (16:15→20:17)
[2019-12-07] MEDS: DEXTROSE 50%-WATER 50 ML DISP.SYRIN IV PRN ×2 (16:17→20:17)
[2019-12-07] MEDS: CALCIUM ACETATE 667 MG CAPSULE PO SCH (16:44)
[2019-12-07] MEDS: TRAZODONE HCL 50 MG TAB PO SCH (20:14)
[2019-12-07] MEDS: QUETIAPINE FUMARATE 100 MG TAB PO SCH (20:15)
[2019-12-07] MEDS: ROPINIROLE HCL 0.25 MG TABLET PO SCH (20:15)
[2019-12-07] MEDS: GABAPENTIN 100 MG CAPSULE PO SCH (20:15)
[2019-12-07] MEDS: ATORVASTATIN CALCIUM 40 MG TABLET PO SCH (20:17)
[2019-12-07] MEDS ORDERED: CLONIDINE HCL 0.1 MG TABLET PO SCH (21:00)
[2019-12-07] MEDS ORDERED: NON-FORMULARY MEDICATION 1 EACH (Hydralazine HCl 50 MG) PO SCH (21:00)
[2019-12-08 03:30] VITALS: BP 173/97
[2019-12-08 03:54] LABS: HEMATOCRIT 24.5 % (36-48); MEAN CORPUSCULAR HEMOGLOBIN 28.7 pg (27.0-33.0); MEAN CORPUSCULAR VOLUME 92.5 fL (79-99); PLATELET COUNT (AUTO) 265 K/uL (130-400); RED BLOOD CELL COUNT(AUTO) 2.65 MIL/uL (4.00-5.50); RED CELL DISTRIBUTION WIDTH 15.1 % (11.0-15.5); WHITE BLOOD COUNT (AUTO) 3.8 K/uL (4.8-10.8)
[2019-12-08] MEDS: HYDRALAZINE HCL 20 MG/ML VIAL IV PRN ×2 (04:04→23:44)
[2019-12-08 04:05] LABS: BAND NEUTROPHILS % (MANUAL) 8 % (0-2); EOSINOPHILS % (MANUAL) 4 % (1-6); LYMPHOCYTES % (MANUAL) 16 % (22-44); SEGMENTED NEUTROPHILS % 72 % (40-70)
[2019-12-08 04:06] LABS: CREATININE 6.4 mg/dL (0.5-1.5); MAGNESIUM 2.2 mg/dL (1.80-2.40); MAN.DIFF COMMENT-IMPRESSION MANUAL DIFFERENTIAL; PHOSPHORUS 7.7 mg/dL (2.5-4.9); PLATELET MORPHOLOGY COMMENT ADEQUATE; POTASSIUM 3.9 mmol/L (3.5-5.1)
[2019-12-08] MEDS: LEVOTHYROXINE 150 MCG TABLET PO SCH ×2 (06:30→06:35)
[2019-12-08] MEDS: CALCIUM ACETATE 667 MG CAPSULE PO SCH ×3 (08:00→17:43)
[2019-12-08 08:08] VITALS: BP 149/57
[2019-12-08] MEDS: ZINC PO SCH (09:00)
[2019-12-08] MEDS: D3 PO SCH (09:00)
[2019-12-08] MEDS: FOLIC PO SCH (09:00)
[2019-12-08] MEDS ORDERED: NON-FORMULARY MEDICATION 1 EACH (Amlodipine Besylate 10 MG) PO SCH (09:00)
[2019-12-08] MEDS: SELENOMETH PO SCH (09:00)
[2019-12-08] MEDS: [UNRECOGNIZED DRUG - OTHER] PO SCH (09:00)
[2019-12-08] MEDS: ALLOPURINOL 100 MG TABLET PO SCH (09:45)
[2019-12-08] MEDS: AMLODIPINE BESYLATE 5 MG TAB PO SCH (09:47)
[2019-12-08] MEDS: GABAPENTIN 100 MG CAPSULE PO SCH ×3 (09:47→21:30)
[2019-12-08] MEDS: FLUOXETINE HCL 20 MG CAPSULE PO SCH (09:47)
[2019-12-08] MEDS: HYDRALAZINE HCL 25 MG TABLET PO SCH ×3 (09:48→21:30)
[2019-12-08] MEDS: LINAGLIPTIN 5 MG TABLET PO SCH (09:48)
[2019-12-08] MEDS: FUROSEMIDE 10 MG/ML 2ML VIAL IV SCH ×2 (09:49→21:30)
[2019-12-08] MEDS: FAMOTIDINE/PF 20 MG/2 ML VIAL IV SCH (10:44)
[2019-12-08] MEDS: CLONIDINE HCL 0.1 MG TABLET PO SCH ×3 (10:46→21:30)
[2019-12-08 11:07] VITALS: BP 157/76
--- NOTE | 2019-12-08 12:38 | NUR ---
CM NOTE/IA UNSUCCESSFUL MEET WITH PATIENT IN ROOM. PATIENT CURRENTLY ON BIPAP AND HAVING RESPIRATORY SYMPTOMS, WILL COME BACK AT LATER TIME. CM TO FOLLOW UP. Addendum: 12/08/19 at 1239 by ROSA MARIA SIDHU RN CM Amended: Links added.
--- NOTE | 2019-12-08 13:38 | NUR ---
HERE TO SEE PT. LABS ORDERED FOR AM.
--- NOTE | 2019-12-08 15:15 | NUR ---
DR CHAVES CONTACTED FOR CONSULT- HE ADVISES PT TO FOLLOW UP AT HIS CLINIC UPON DISCHARGE
[2019-12-08 15:37] VITALS: BP 157/76
[2019-12-08] MEDS ORDERED: EPOETIN ALFA 10,000 UNIT/ML VIAL SQ SCH (16:45)
--- NOTE | 2019-12-08 17:06 | NUR ---
DR. BHAKTA IN WITH PATIENT DOING A RT THORACENTESES.AT BEDSIDE
--- NOTE | 2019-12-08 17:15 | NUR ---
DR. CHAVES VISITED WITH PT. WILL REMOVE PERITONEAL CATH POST DISCHARGE IN HIS OFFICE.
[2019-12-08] MEDS: MORPHINE SULFATE 2 MG/ML 1ML SYG IVP PRN ×2 (17:29→21:30)
--- NOTE | 2019-12-08 17:30 | NUR ---
1400 ML OF FLUID DRAINED FROM RT. SIDE CHEST. PROCEDURE TOLERATED WELL. PORTABLE CXR DONE POST PROCEDURE
[2019-12-08 19:00] VITALS: BP 161/79
[2019-12-08] MEDS: ROPINIROLE HCL 0.25 MG TABLET PO SCH (21:30)
[2019-12-08] MEDS: TRAZODONE HCL 50 MG TAB PO SCH (21:30)
[2019-12-08] MEDS: ATORVASTATIN CALCIUM 40 MG TABLET PO SCH (21:30)
[2019-12-08] MEDS: QUETIAPINE FUMARATE 100 MG TAB PO SCH (21:30)
[2019-12-08] MEDS: DEXTROSE 50%-WATER 50 ML DISP.SYRIN IV PRN (23:45)
[2019-12-09] VITALS (7 sets, daily range): BP systolic 154–195; BP diastolic 70–91
[2019-12-09 03:56] LABS: HEMATOCRIT 24.1 % (36-48); MEAN CORPUSCULAR HEMOGLOBIN 29.5 pg (27.0-33.0); MEAN CORPUSCULAR HGB CONC 32.4 g/dL (32.0-36.0); MEAN CORPUSCULAR VOLUME 91.3 fL (79-99); PLATELET COUNT (AUTO) 269 K/uL (130-400); RED BLOOD CELL COUNT(AUTO) 2.64 MIL/uL (4.00-5.50); RED CELL DISTRIBUTION WIDTH 15.3 % (11.0-15.5); WHITE BLOOD COUNT (AUTO) 4.3 K/uL (4.8-10.8)
[2019-12-09 04:01] LABS: HEMOGLOBIN A1C 5.4 % (4.0-6.0)
[2019-12-09 04:07] LABS: % IRON SATURATION 22.6 % (22-44)
[2019-12-09 04:10] LABS: BAND NEUTROPHILS % (MANUAL) 1 % (0-2); EOSINOPHILS % (MANUAL) 6 % (1-6); LYMPHOCYTES % (MANUAL) 16 % (22-44); MAN.DIFF COMMENT-IMPRESSION MANUAL DIFFERENTIAL; MONOCYTES % (MANUAL) 13 % (2-9); SEGMENTED NEUTROPHILS % 64 % (40-70)
[2019-12-09 04:17] LABS: CREATININE 5.6 mg/dL (0.5-1.5); PHOSPHORUS 5.8 mg/dL (2.5-4.9); POTASSIUM 3.7 mmol/L (3.5-5.1); THYROID STIMULATING HORMONE 25.72 uIU/mL (0.36-3.74)
[2019-12-09] MEDS: LEVOTHYROXINE 150 MCG TABLET PO SCH (06:02)
[2019-12-09] MEDS: MORPHINE SULFATE 2 MG/ML 1ML SYG IVP PRN ×3 (06:52→22:00)
[2019-12-09 07:13] LABS: HEPATITIS A ANTIBODY IGM Negative (Negative); HEPATITIS B CORE IGM Negative (Negative); HEPATITIS Bs ANTIGEN SCREEN P Negative (Negative)
[2019-12-09] MEDS: CALCIUM ACETATE 667 MG CAPSULE PO SCH ×3 (08:00→16:43)
[2019-12-09] MEDS: GABAPENTIN 100 MG CAPSULE PO SCH ×3 (09:00→21:55)
[2019-12-09] MEDS: LINAGLIPTIN 5 MG TABLET PO SCH (09:00)
[2019-12-09] MEDS: IRON SUCROSE COMPLEX 100 MG in SODIUM CHLORIDE 0.9% 50 ML IV SCH (09:00)
[2019-12-09] MEDS: HYDRALAZINE HCL 25 MG TABLET PO SCH ×3 (11:28→21:54)
[2019-12-09] MEDS: CLONIDINE HCL 0.1 MG TABLET PO SCH ×3 (11:28→21:55)
[2019-12-09] MEDS ORDERED: COMPOUND IV MISC 1 EACH IVSOLN MISC PRN (11:45)
[2019-12-09] MEDS: FUROSEMIDE 10 MG/ML 2ML VIAL IV SCH ×2 (12:06→21:55)
[2019-12-09] MEDS: FAMOTIDINE/PF 20 MG/2 ML VIAL IV SCH (12:06)
[2019-12-09] MEDS ORDERED: PHARMACY COMMUNICATION MISC SCH (12:30)
[2019-12-09] MEDS: EPOETIN ALFA 10,000 UNIT/ML VIAL SQ SCH (13:29)
--- NOTE | 2019-12-09 15:48 | NUR ---
CALL BACK FROM TAYE FROM DR CHAVES OFFICE REGARDING MESSAGE ON DR FU WANTING TO SEE IF ANDIE CAN STILL REMOVE PARACENTHESIS CATH DUE TO HER BEING NONCOMPLIANT AND MIGHT GO SEPTIC IF NOT TAKEN CARE OF .TAYE STATED PER DR OJEDA WILL NOT REMOVE CATHETER AT THIS TIME DUE TO HER RESPIRATORY STATUS AND WILL NEED HER TO BE MORE STABLE AND CLEARED BY PULMONARY BEFORE AND TO SET UP APPT TO SCHEDULE FOR REMOVAL .. APPT SET FOR December AT 0930 AM
--- NOTE | 2019-12-09 16:16 | NUR ---
PAGED DR FU FOR UPDATE ON DR BHAKTA PLAN TO REMOVE MORE FLUID TOMORROW PER DIALYSIS AND DR CHAVES OUPT FOR REMOVAL OF PERITONEAL CATH ,PENDING CALL BACK
--- NOTE | 2019-12-09 16:36 | NUR ---
RD NOTIFICATION - TRIGGER Pt admitted with Bilateral Pleural Effusion, CKD Exacerbation. Pt s/p Thoracentesis at time of screen. Pt with hemodialysis in place. Diet advanced to Renal Dialysis, 75gm CCD. Recommend continue Renal Dialysis Diet Order RD to follow up with Nutrition education when Pt is stable and tolerating PO. Please notify as additional nutrition concerns arise. Thank you. Addendum: 12/09/19 at [address] Amended: Links added.
[2019-12-09] MEDS: ALLOPURINOL 100 MG TABLET PO SCH (16:43)
[2019-12-09] MEDS: AMLODIPINE BESYLATE 5 MG TAB PO SCH (16:44)
[2019-12-09] MEDS: FLUOXETINE HCL 20 MG CAPSULE PO SCH (16:46)
--- NOTE | 2019-12-09 17:04 | NUR ---
CM NOTE/IA MEET WITH PATIENT IN ROOM. PER PATIENT, LIVES WITH FATHER AND STEPMOTHER, DEPENDENT WITH ADLS BUT CAN BRUSH HER HAIR, WASH FACE AND MAYBE PUT ON A SHIRT IF SHE IS STRONG ENOUGH. PER PATIENT, IS CURRENTLY IN PROCESS OF OBTAINING A PROVIDER. CURRENT DIALYSIS IS AT [facility] [place], MOM DRIVES TO APPOINTMENTS AND FEELS SAFE TO RETURN HOME ONCE DISCHARGED FROM HOSPITAL. Addendum: 12/09/19 at 1707 by ROSA MARIA SIDHU RN CM Amended: Links added.
--- NOTE | 2019-12-09 18:45 | NUR ---
PER DR FU NO NEED FOR DIALYSIS TOMORROW ,PER ENOUGH FLUID HAS BEEN REMOVED. LET HIM KNOW PER DR CHAVES WILL NOT REMOVE PERITONEAL DIALYSIS CATH AND APPT MADE FOR December AT 0930 ..NOTIFIED DR BHAKTA.PER DR BHAKTA CM CONSULT FOR BIPAP FOR HOME . INFORMED DR ROYAL WELL .
--- NOTE | 2019-12-09 18:48 | NUR ---
OLMAN JAVED DIALYSIS NURSE ON CANCELLED DIALYSIS FOR TOMORROW
[2019-12-09] MEDS: QUETIAPINE FUMARATE 100 MG TAB PO SCH (21:00)
[2019-12-09] MEDS: ROPINIROLE HCL 0.25 MG TABLET PO SCH (21:54)
[2019-12-09] MEDS: ATORVASTATIN CALCIUM 40 MG TABLET PO SCH (21:54)
[2019-12-09] MEDS: TRAZODONE HCL 50 MG TAB PO SCH (22:00)
[2019-12-10 03:45] VITALS: BP 155/78
[2019-12-10 03:48] LABS: BASOPHILS % (AUTO) 0.4 % (0.0-5.0); EOSINOPHILS % (AUTO) 7.5 % (0.0-8.0); HEMATOCRIT 24.9 % (36-48); LYMPHOCYTES % (AUTO) 19.5 % (21.0-51.0); MEAN CORPUSCULAR HEMOGLOBIN 28.5 pg (27.0-33.0); MEAN CORPUSCULAR HGB CONC 30.9 g/dL (32.0-36.0); MEAN CORPUSCULAR VOLUME 92.2 fL (79-99); MONOCYTES % (AUTO) 12.6 % (3.0-13.0); NEUTROPHILS % (AUTO) 59.6 % (40.0-77.0); PLATELET COUNT (AUTO) 248 K/uL (130-400); RED CELL DISTRIBUTION WIDTH 15.6 % (11.0-15.5); WHITE BLOOD COUNT (AUTO) 4.5 K/uL (4.8-10.8)
[2019-12-10 04:01] LABS: CREATININE 4.4 mg/dL (0.5-1.5)
[2019-12-10] MEDS: LEVOTHYROXINE 25 MCG TABLET PO SCH (06:27)
[2019-12-10] MEDS: LEVOTHYROXINE 150 MCG TABLET PO SCH (06:27)
[2019-12-10 07:11] VITALS: BP 157/72
--- NOTE | 2019-12-10 07:50 | NUR ---
NOTE AAOX3. DENIES PAIN BUT REPORTS GENERALIZED DISCOMFORT. WOULD LIKE SOMETHING FOR PAIN. SHE HAS BEEN DIALYZED FOR TWO DAYS IN A ROW YESTERDAY AND DAY BEFORE. SHE ALSO HAS BILATERAL THORACENTESIS. BBS CLEAR TO UPPER LOBES BILATERALLY AND DIMINISHED LOWER LOBES BILATERALLY. NO COUGH OR SOB. ROOM AIR O2.
[2019-12-10] MEDS: CALCIUM ACETATE 667 MG CAPSULE PO SCH ×3 (08:00→17:04)
[2019-12-10] MEDS: ZINC PO SCH (09:00)
[2019-12-10] MEDS: SELENOMETH PO SCH (09:00)
[2019-12-10] MEDS: FOLIC PO SCH (09:00)
[2019-12-10] MEDS: [UNRECOGNIZED DRUG - OTHER] PO SCH (09:00)
[2019-12-10] MEDS: D3 PO SCH (09:00)
[2019-12-10] MEDS: IRON SUCROSE COMPLEX 100 MG in SODIUM CHLORIDE 0.9% 50 ML IV SCH (10:14)
[2019-12-10] MEDS: FUROSEMIDE 10 MG/ML 2ML VIAL IV SCH ×2 (10:14→21:45)
[2019-12-10] MEDS: ALLOPURINOL 100 MG TABLET PO SCH (10:15)
[2019-12-10] MEDS: GABAPENTIN 100 MG CAPSULE PO SCH ×3 (10:15→21:47)
[2019-12-10] MEDS: HYDRALAZINE HCL 25 MG TABLET PO SCH ×3 (10:15→21:47)
[2019-12-10] MEDS: LINAGLIPTIN 5 MG TABLET PO SCH (10:15)
[2019-12-10] MEDS: FLUOXETINE HCL 20 MG CAPSULE PO SCH (10:16)
[2019-12-10] MEDS: CLONIDINE HCL 0.1 MG TABLET PO SCH ×3 (10:17→21:46)
[2019-12-10] MEDS: AMLODIPINE BESYLATE 5 MG TAB PO SCH (10:17)
[2019-12-10] MEDS: MORPHINE SULFATE 2 MG/ML 1ML SYG IVP PRN ×2 (10:19→22:04)
[2019-12-10 10:52] VITALS: BP 166/78
--- NOTE | 2019-12-10 13:08 | NUR ---
CM NOTE/BIPAP [facility] MONITORING AND RENAISSANCE ALL CALLED REGARDING ORDER FOR BIPAP DME. PER DME, SLEEP STUDY TO BE DONE FIRST TO QUALIFY FOR BIPAP, DR. BHAKTA INFORMED. PER MD, WILL HAVE PATIENT SCHEDULED FOR SLEEP STUDY AFTER HOSPITALIZATION IN OFFICE FOR BIPAP. PATIENT INFORMED OF DME REQUEST AND SLEEP STUDY FIRST, PER PATIENT, OK TO GO TO DR. BHAKTA OFFICE AFTER DISCHARGE FOR SLEEP STUDY. PRIMARY NURSE, ALONA COHEN, MADE AWARE.
[2019-12-10] MEDS: EPOETIN ALFA 10,000 UNIT/ML VIAL SQ SCH (15:00)
--- NOTE | 2019-12-10 15:30 | NUR ---
NOTE DR BHAKTA CAME TO SEE PATIENT AND ASKED FOR ULTRASOUND MACHINE TO EVALUATE PLEURAL SPACES SINCE HE DID BOTH THORACENTESIS ON PATIENT. HAS ALSO BEEN DIALYZED. DR FU CAME AND ASKED PATIENT HOW SHE FELT OR IF SHE NEEDED DIALYSIS BASED ON SOB SHE SAID NO. HE ORDERED LABS FOR AM AND TO BE DIALYZED TOMORROW. SHE WILL BE PLACED ON 1.5 LITER FLUID RESTRICTION. ADJUSTED DIET ALLOWANCE AND WILL NOTE HER ALLOWANCE ON BOARD AND DOOR.
[2019-12-10 15:53] VITALS: BP 168/80
--- NOTE | 2019-12-10 18:20 | NUR ---
NOTE DR BHAKTA CALLED BACK AND INFORMED ME HE WOULD NOT BE ABLE TO REASSESS FOR PLEURAL EFFUSION UNTIL TOMORROW BECAUSE HE WAS CALLED TO AN EMERGENCY.
[2019-12-10 19:27] VITALS: BP 181/93
[2019-12-10] MEDS: QUETIAPINE FUMARATE 100 MG TAB PO SCH (21:46)
[2019-12-10] MEDS: ATORVASTATIN CALCIUM 40 MG TABLET PO SCH (21:47)
[2019-12-10] MEDS: TRAZODONE HCL 50 MG TAB PO SCH (21:47)
[2019-12-10] MEDS: FERROUS SULFATE 325 MG TABLET.DR PO SCH (21:47)
[2019-12-10] MEDS: ROPINIROLE HCL 0.25 MG TABLET PO SCH (21:47)
[2019-12-10 23:09] VITALS: BP 182/78
[2019-12-11] MEDS: HYDRALAZINE HCL 20 MG/ML VIAL IV PRN (01:51)
[2019-12-11 03:33] VITALS: BP_SYST 155; BP_SYST 178; BP_DIAS 84; BP_DIAS 88
[2019-12-11 04:17] LABS: BASOPHILS % (AUTO) 0.8 % (0.0-5.0); EOSINOPHILS % (AUTO) 10.1 % (0.0-8.0); HEMATOCRIT 24.2 % (36-48); LYMPHOCYTES % (AUTO) 23.9 % (21.0-51.0); MEAN CORPUSCULAR HEMOGLOBIN 29.6 pg (27.0-33.0); MEAN CORPUSCULAR HGB CONC 31.8 g/dL (32.0-36.0); MEAN CORPUSCULAR VOLUME 93.1 fL (79-99); MONOCYTES % (AUTO) 13.8 % (3.0-13.0); NEUTROPHILS % (AUTO) 50.6 % (40.0-77.0); PLATELET COUNT (AUTO) 257 K/uL (130-400); RED CELL DISTRIBUTION WIDTH 15.3 % (11.0-15.5); WHITE BLOOD COUNT (AUTO) 3.8 K/uL (4.8-10.8)
[2019-12-11 04:29] LABS: CREATININE 5.5 mg/dL (0.5-1.5); PHOSPHORUS 5.3 mg/dL (2.5-4.9); POTASSIUM 4.1 mmol/L (3.5-5.1)
[2019-12-11] MEDS: LEVOTHYROXINE 150 MCG TABLET PO SCH (06:06)
[2019-12-11] MEDS: LEVOTHYROXINE 25 MCG TABLET PO SCH (06:07)
--- NOTE | 2019-12-11 07:45 | NUR ---
ASSESSMENT ENCOUNTERED PT ASLEEP BUT AROUSEABLE, A&OX3, CALM COOPERATIVE AND DOES NOT APPEAR TO BE IN ANY DISTRESS NOR ANY NEURO DEFICITS PRESENT. PT DENIES PAIN, SOB, NAUSEA BUT DOES C/O LOWER EXTREMITY WEAKNESS, PT IS PENDING HEMODIALYSIS. CALL LIGHT WITHIN REACH.
[2019-12-11] MEDS: CALCIUM ACETATE 667 MG CAPSULE PO SCH ×3 (08:00→16:32)
[2019-12-11 08:04] VITALS: BP 159/77
[2019-12-11] MEDS: FERROUS SULFATE 325 MG TABLET.DR PO SCH ×2 (09:00→20:39)
[2019-12-11] MEDS: FLUOXETINE HCL 20 MG CAPSULE PO SCH (09:00)
[2019-12-11] MEDS: GABAPENTIN 100 MG CAPSULE PO SCH ×3 (09:00→20:40)
[2019-12-11] MEDS: HYDRALAZINE HCL 25 MG TABLET PO SCH ×3 (09:00→20:39)
[2019-12-11] MEDS: LINAGLIPTIN 5 MG TABLET PO SCH (09:00)
[2019-12-11] MEDS: ASCORBIC ACID 500 MG TAB PO SCH (09:00)
[2019-12-11] MEDS: CLONIDINE HCL 0.1 MG TABLET PO SCH ×3 (09:00→20:39)
[2019-12-11] MEDS: FUROSEMIDE 10 MG/ML 2ML VIAL IV SCH ×2 (10:00→22:08)
[2019-12-11 11:44] VITALS: BP 166/73
[2019-12-11] MEDS: PANTOPRAZOLE SODIUM 40 MG TABLET.DR PO SCH (14:01)
[2019-12-11] MEDS: IRON SUCROSE COMPLEX 100 MG in SODIUM CHLORIDE 0.9% 50 ML IV SCH (14:02)
[2019-12-11] MEDS: AMLODIPINE BESYLATE 5 MG TAB PO SCH (14:03)
[2019-12-11] MEDS: ALLOPURINOL 100 MG TABLET PO SCH (14:08)
[2019-12-11] MEDS: MORPHINE SULFATE 2 MG/ML 1ML SYG IVP PRN ×2 (16:07→20:49)
--- NOTE | 2019-12-11 16:12 | NUR ---
AMBULATION PT AMBULATING TO RECLINER, GAIT SLOW BUT STEADY WITH WALKER, GAIT BELT AND ASSIST. TOLERATED WELL, PT RESTING COMFORTABLY, CALL LIGHT WITHIN REACH.
[2019-12-11 16:34] VITALS: BP 183/92
[2019-12-11] MEDS: EPOETIN ALFA 10,000 UNIT/ML VIAL SQ SCH (17:12)
[2019-12-11 19:33] VITALS: BP 150/67
[2019-12-11] MEDS: TRAZODONE HCL 50 MG TAB PO SCH (20:37)
[2019-12-11] MEDS: QUETIAPINE FUMARATE 100 MG TAB PO SCH (20:37)
[2019-12-11] MEDS: ATORVASTATIN CALCIUM 40 MG TABLET PO SCH (20:39)
[2019-12-11] MEDS: ROPINIROLE HCL 0.25 MG TABLET PO SCH (20:40)
[2019-12-11 22:58] VITALS: BP 159/74
[2019-12-12] VITALS (26 sets, daily range): BP systolic 147–177; BP diastolic 7–85
[2019-12-12 04:01] LABS: BASOPHILS % (AUTO) 0.7 % (0.0-5.0); EOSINOPHILS % (AUTO) 8.7 % (0.0-8.0); HEMATOCRIT 24.9 % (36-48); MEAN CORPUSCULAR HEMOGLOBIN 28.8 pg (27.0-33.0); MEAN CORPUSCULAR HGB CONC 30.9 g/dL (32.0-36.0); MEAN CORPUSCULAR VOLUME 93.3 fL (79-99); MONOCYTES % (AUTO) 13.3 % (3.0-13.0); NEUTROPHILS % (AUTO) 54.3 % (40.0-77.0); PLATELET COUNT (AUTO) 248 K/uL (130-400); RED BLOOD CELL COUNT(AUTO) 2.67 MIL/uL (4.00-5.50); RED CELL DISTRIBUTION WIDTH 15.4 % (11.0-15.5); WHITE BLOOD COUNT (AUTO) 4.1 K/uL (4.8-10.8)
[2019-12-12 04:18] LABS: INR 0.99 (0.85-1.15); PARTIAL THROMBOPLASTIN TIME 30.9 SEC (26.3-35.5); PROTHROMBIN TIME 10.7 SEC (9.6-11.6)
[2019-12-12 04:23] LABS: CREATININE 4.2 mg/dL (0.5-1.5); MAGNESIUM 1.9 mg/dL (1.80-2.40); PHOSPHORUS 4.1 mg/dL (2.5-4.9)
[2019-12-12] MEDS: LEVOTHYROXINE 25 MCG TABLET PO SCH (05:26)
[2019-12-12] MEDS: LEVOTHYROXINE 150 MCG TABLET PO SCH (05:26)
--- NOTE | 2019-12-12 05:38 | NUR ---
Patient went to holding area for the procedure with Dr. Comer. Patient alert x3 with no complaints. Tele pack removed and cellphone and glasses was placed in the thread drawer the room.
[2019-12-12] MEDS ORDERED: SODIUM CHLORIDE 0.9% 1000ML 1,000 ML IV ONE (05:52)
[2019-12-12] MEDS ORDERED: PROPOFOL 10 MG/ML 20ML VIAL IV ONE (06:20)
[2019-12-12] MEDS ORDERED: LIDOCAINE PF 2% 5ML ABBOJECT ONE (06:20)
[2019-12-12] MEDS ORDERED: ONDANSETRON HCL 4 MG/2 ML VIAL ONE (06:20)
[2019-12-12] MEDS ORDERED: DEXAMETHASONE SOD PHOSPHATE 10MG/ML 1ML VIAL ONE (06:20)
[2019-12-12] MEDS ORDERED: MIDAZOLAM HCL 1 MG/ML 2ML VIAL ONE (06:20)
[2019-12-12] MEDS ORDERED: FENTANYL CITRATE PF 50 MCG/1 ML 2ML VIAL ONE (06:21)
[2019-12-12] MEDS ORDERED: MEPERIDINE-PF 25 MG/ML SYG ONE ×2 (07:14→07:25)
[2019-12-12] MEDS: CALCIUM ACETATE 667 MG CAPSULE PO SCH ×3 (08:00→16:23)
[2019-12-12] MEDS: ZINC PO SCH (09:00)
[2019-12-12] MEDS: SELENOMETH PO SCH (09:00)
[2019-12-12] MEDS: FOLIC PO SCH (09:00)
[2019-12-12] MEDS: [UNRECOGNIZED DRUG - OTHER] PO SCH (09:00)
[2019-12-12] MEDS: D3 PO SCH (09:00)
[2019-12-12] MEDS: ALLOPURINOL 100 MG TABLET PO SCH (10:28)
[2019-12-12] MEDS: FLUOXETINE HCL 20 MG CAPSULE PO SCH (10:28)
[2019-12-12] MEDS: LINAGLIPTIN 5 MG TABLET PO SCH (10:28)
[2019-12-12] MEDS: PANTOPRAZOLE SODIUM 40 MG TABLET.DR PO SCH (10:28)
[2019-12-12] MEDS: ASCORBIC ACID 500 MG TAB PO SCH (10:28)
[2019-12-12] MEDS: FERROUS SULFATE 325 MG TABLET.DR PO SCH ×2 (10:29→21:04)
[2019-12-12] MEDS: AMLODIPINE BESYLATE 5 MG TAB PO SCH (10:29)
[2019-12-12] MEDS: FUROSEMIDE 10 MG/ML 2ML VIAL IV SCH ×2 (10:29→22:00)
[2019-12-12] MEDS: HYDRALAZINE HCL 25 MG TABLET PO SCH ×3 (10:32→21:04)
[2019-12-12] MEDS: IRON SUCROSE COMPLEX 100 MG in SODIUM CHLORIDE 0.9% 50 ML IV SCH (10:32)
[2019-12-12] MEDS: CLONIDINE HCL 0.1 MG TABLET PO SCH ×3 (10:33→21:05)
[2019-12-12] MEDS: GABAPENTIN 100 MG CAPSULE PO SCH ×3 (10:35→21:06)
[2019-12-12] MEDS: MORPHINE SULFATE 2 MG/ML 1ML SYG IVP PRN ×2 (14:17→21:13)
[2019-12-12] MEDS: EPOETIN ALFA 10,000 UNIT/ML VIAL SQ SCH (14:18)
--- NOTE | 2019-12-12 14:27 | NUR ---
CM NOTE/[facility] DME PER DR. FU, PATIENT ATTENDS US [facility] IN [place] AND NEEDS ASSISTANCE TO LIFT OUT OF WC INTO RENAL CHAIR. PER MD, FACILITY UNABLE TO LIFT PATIENT, AND REQUIRES LIFT. PER DR. FU, HAD GIVEN RX FOR LIFT AND PATIENT TAKEN TO [facility] BUT HAD NOT BEEN DELIVERED YET. I CALLED [facility] AND PER DME COMPANY, PENDING DR. FU NOTES FOR DME REQUEST. DR. AVILA OFFICE CALLED, SPOKE TO MARILYN. DAR PHONE AND FAX NUMBER GIVEN. PER MARILYN, WILL FAX DOCUMENTATION FOR DME REQUESTED. WILL FOLLOW UP WITH [facility] TO REQUEST. DISPOSITION FOR HOME WHEN MEDICALLY CLEARED.
[2019-12-12] MEDS: ATORVASTATIN CALCIUM 40 MG TABLET PO SCH (21:04)
[2019-12-12] MEDS: TRAZODONE HCL 50 MG TAB PO SCH (21:04)
[2019-12-12] MEDS: ROPINIROLE HCL 0.25 MG TABLET PO SCH (21:04)
[2019-12-12] MEDS: QUETIAPINE FUMARATE 100 MG TAB PO SCH (21:04)
[2019-12-13 04:00] VITALS: BP 148/80
[2019-12-13 04:29] LABS: HEMATOCRIT 27.2 % (36-48); MEAN CORPUSCULAR HEMOGLOBIN 29.2 pg (27.0-33.0); MEAN CORPUSCULAR HGB CONC 30.9 g/dL (32.0-36.0); MEAN CORPUSCULAR VOLUME 94.4 fL (79-99); RED BLOOD CELL COUNT(AUTO) 2.88 MIL/uL (4.00-5.50); RED CELL DISTRIBUTION WIDTH 15.4 % (11.0-15.5); WHITE BLOOD COUNT (AUTO) 6.5 K/uL (4.8-10.8)
[2019-12-13 04:53] LABS: CREATININE 5.4 mg/dL (0.5-1.5); POTASSIUM 4.1 mmol/L (3.5-5.1)
--- NOTE | 2019-12-13 05:00 | NUR ---
PATIENT A/OX3. POST REMOVAL OF PERITONEAL CATHETER. DRESSING CDI. PATIENT C/O PAIN TO SITE. MEDICATED PER ORDER. PATIENT HAD A LARGE BM IN DIAPER. PATIENT REFUSED IV LASIX. STATES SHE DOES NOT VOID. 2+ SWELLING TO [place]. DENIES CHEST PAIN OR SOB. WILL CONTINUE TO MONITOR.
[2019-12-13] MEDS: LEVOTHYROXINE 25 MCG TABLET PO SCH (06:14)
[2019-12-13] MEDS: LEVOTHYROXINE 150 MCG TABLET PO SCH (06:14)
[2019-12-13 07:30] VITALS: BP 164/73
[2019-12-13] MEDS: CALCIUM ACETATE 667 MG CAPSULE PO SCH ×3 (07:51→16:27)
[2019-12-13] MEDS: HYDRALAZINE HCL 25 MG TABLET PO SCH ×3 (09:00→20:15)
[2019-12-13] MEDS: FERROUS SULFATE 325 MG TABLET.DR PO SCH ×2 (09:00→20:15)
[2019-12-13] MEDS: GABAPENTIN 100 MG CAPSULE PO SCH ×3 (09:00→20:15)
[2019-12-13] MEDS: CLONIDINE HCL 0.1 MG TABLET PO SCH ×3 (09:00→20:15)
[2019-12-13] MEDS: IRON SUCROSE COMPLEX 100 MG in SODIUM CHLORIDE 0.9% 50 ML IV SCH (09:00)
[2019-12-13] MEDS: ASCORBIC ACID 500 MG TAB PO SCH (09:00)
[2019-12-13] MEDS: FUROSEMIDE 10 MG/ML 2ML VIAL IV SCH ×2 (10:00→20:16)
[2019-12-13 11:30] VITALS: BP 175/78
[2019-12-13] MEDS: AMLODIPINE BESYLATE 5 MG TAB PO SCH (14:12)
[2019-12-13] MEDS: FLUOXETINE HCL 20 MG CAPSULE PO SCH (14:13)
[2019-12-13] MEDS: ALLOPURINOL 100 MG TABLET PO SCH (14:14)
[2019-12-13] MEDS: PANTOPRAZOLE SODIUM 40 MG TABLET.DR PO SCH (14:14)
[2019-12-13] MEDS: EPOETIN ALFA 10,000 UNIT/ML VIAL SQ SCH (15:02)
[2019-12-13 15:30] VITALS: BP 159/72
[2019-12-13] MEDS: MORPHINE SULFATE 2 MG/ML 1ML SYG IVP PRN (18:30)
[2019-12-13 19:32] VITALS: BP 167/84
[2019-12-13] MEDS: ROPINIROLE HCL 0.25 MG TABLET PO SCH (20:15)
[2019-12-13] MEDS: ATORVASTATIN CALCIUM 40 MG TABLET PO SCH (20:15)
[2019-12-13] MEDS: QUETIAPINE FUMARATE 100 MG TAB PO SCH (20:15)
[2019-12-13] MEDS: TRAZODONE HCL 50 MG TAB PO SCH (20:15)
[2019-12-14 00:01] VITALS: BP 156/76
[2019-12-14] MEDS: MORPHINE SULFATE 2 MG/ML 1ML SYG IVP PRN (00:03)
[2019-12-14 04:08] VITALS: BP 152/70
[2019-12-14 04:48] LABS: CREATININE 4.5 mg/dL (0.5-1.5)
[2019-12-14] MEDS: LEVOTHYROXINE 150 MCG TABLET PO SCH (06:07)
[2019-12-14] MEDS: LEVOTHYROXINE 25 MCG TABLET PO SCH (06:07)
[2019-12-14 07:30] VITALS: BP 139/70
[2019-12-14] MEDS: ASCORBIC ACID 500 MG TAB PO SCH (08:30)
[2019-12-14] MEDS: AMLODIPINE BESYLATE 5 MG TAB PO SCH (08:30)
[2019-12-14] MEDS: CALCIUM ACETATE 667 MG CAPSULE PO SCH ×3 (08:30→16:19)
[2019-12-14] MEDS: ALLOPURINOL 100 MG TABLET PO SCH (08:31)
[2019-12-14] MEDS: FLUOXETINE HCL 20 MG CAPSULE PO SCH (08:31)
[2019-12-14] MEDS: HYDRALAZINE HCL 25 MG TABLET PO SCH ×2 (08:31→14:00)
[2019-12-14] MEDS: FERROUS SULFATE 325 MG TABLET.DR PO SCH (08:31)
[2019-12-14] MEDS: PANTOPRAZOLE SODIUM 40 MG TABLET.DR PO SCH (08:32)
[2019-12-14] MEDS: CLONIDINE HCL 0.1 MG TABLET PO SCH ×2 (08:32→14:00)
[2019-12-14] MEDS: GABAPENTIN 100 MG CAPSULE PO SCH ×2 (08:32→14:00)
[2019-12-14] MEDS: FUROSEMIDE 10 MG/ML 2ML VIAL IV SCH (09:02)
[2019-12-14] MEDS: IRON SUCROSE COMPLEX 100 MG in SODIUM CHLORIDE 0.9% 50 ML IV SCH (09:02)
[2019-12-14 11:30] VITALS: BP 148/72
--- NOTE | 2019-12-14 11:46 | NUR ---
CALL TO MOM , STATES [facility] LIFT APPROVED AND DAR STATES READY FOR DELIVERY WHEN PATIENT IS DISCHARGED. ADVISED PATRICIA, PRIMARY RN, TO UPDATE MD'S. PT WILL NEED HOME AMBULANCE . WILL MAKE TRANSPORT FORMS Addendum: 12/14/19 at 1150 by ELLE LOPEZ RN Amended: Links added.
--- NOTE | 2019-12-14 11:51 | NUR ---
HOME VIA EMS WHEN DC ORDERS REC'D. Addendum: 12/14/19 at 1151 by ELLE LOPEZ RN CM Amended: Links added.
[2019-12-14] MEDS ORDERED: PANT40TA PO (13:09)
[2019-12-14] MEDS ORDERED: LEVO175T9 PO (13:09)
[2019-12-14] MEDS ORDERED: HYDR-4154 PO (13:09)
[2019-12-14] MEDS ORDERED: FERR324T4 PO (13:09)
[2019-12-14] MEDS: EPOETIN ALFA 10,000 UNIT/ML VIAL SQ SCH (14:03)
[2019-12-28] MEDS ORDERED: TRAM100T40 PO (22:18)
[2019-12-30] MEDS ORDERED: CLON0.1T2 PO (16:59)
[2019-12-30] MEDS ORDERED: LEVO100T4 PO (16:59)
[2019-12-30] MEDS ORDERED: HYDR25 PO (16:59)
[2019-12-30] MEDS ORDERED: SEVE800 PO (16:59)
[2019-12-30] MEDS ORDERED: Folic Acid/Vitamin B Comp W-C PO (17:14)
[2019-12-30] MEDS ORDERED: MINO2.5 PO (17:14)
== END 2019-12-14 18:30 | disposition home or self-care (01) | DRG 907 ==
LOC: EDH 01:50 → EDHIP 04:34 → 4CH 07:58 → 4AH 12-12 12:41 → 4CH 12-12 12:42
PROVIDERS: ADMIT Family Medicine; ATTEND Family Medicine
PROC: 5A09357 Assistance with Respiratory Ventilation, Less than 24 Consecutive Hours, Continuous Positive Airway Pressure (ICD-10-PCS; 2019-12-07)
PROC: 5A09357 Assistance with Respiratory Ventilation, Less than 24 Consecutive Hours, Continuous Positive Airway Pressure (ICD-10-PCS; 2019-12-08)
PROC: 5A1D70Z Performance of Urinary Filtration, Intermittent, Less than 6 Hours Per Day (ICD-10-PCS; 2019-12-08)
PROC: 0W9B3ZZ Drainage of Left Pleural Cavity, Percutaneous Approach (ICD-10-PCS; 2019-12-08)
PROC: 0W993ZZ Drainage of Right Pleural Cavity, Percutaneous Approach (ICD-10-PCS; 2019-12-08)
PROC: 5A09357 Assistance with Respiratory Ventilation, Less than 24 Consecutive Hours, Continuous Positive Airway Pressure (ICD-10-PCS; 2019-12-09)
PROC: 5A1D70Z Performance of Urinary Filtration, Intermittent, Less than 6 Hours Per Day (ICD-10-PCS; 2019-12-09)
PROC: 5A09357 Assistance with Respiratory Ventilation, Less than 24 Consecutive Hours, Continuous Positive Airway Pressure (ICD-10-PCS; 2019-12-10)
PROC: 5A09357 Assistance with Respiratory Ventilation, Less than 24 Consecutive Hours, Continuous Positive Airway Pressure (ICD-10-PCS; 2019-12-11)
PROC: 5A1D70Z Performance of Urinary Filtration, Intermittent, Less than 6 Hours Per Day (ICD-10-PCS; 2019-12-11)
PROC: 5A09357 Assistance with Respiratory Ventilation, Less than 24 Consecutive Hours, Continuous Positive Airway Pressure (ICD-10-PCS; 2019-12-12)
PROC: 0WPG03Z Removal of Infusion Device from Peritoneal Cavity, Open Approach (ICD-10-PCS; principal; 2019-12-12 06:30)
PROC: 5A09357 Assistance with Respiratory Ventilation, Less than 24 Consecutive Hours, Continuous Positive Airway Pressure (ICD-10-PCS; 2019-12-13)
PROC: 5A1D70Z Performance of Urinary Filtration, Intermittent, Less than 6 Hours Per Day (ICD-10-PCS; 2019-12-13)
DX: T85.691A Other mechanical complication of intraperitoneal dialysis catheter, initial encounter (principal); N18.6 End stage renal disease; J96.22 Acute and chronic respiratory failure with hypercapnia; J96.21 Acute and chronic respiratory failure with hypoxia; J98.11 Atelectasis; J90 Pleural effusion, not elsewhere classified; I16.1 Hypertensive emergency; J44.1 Chronic obstructive pulmonary disease with (acute) exacerbation; E66.2 Morbid (severe) obesity with alveolar hypoventilation; E87.1 Hypo-osmolality and hyponatremia; J81.1 Chronic pulmonary edema; I12.0 Hypertensive chronic kidney disease with stage 5 chronic kidney disease or end stage renal disease; E87.70 Fluid overload, unspecified; D25.9 Leiomyoma of uterus, unspecified; D50.9 Iron deficiency anemia, unspecified; E03.9 Hypothyroidism, unspecified; E11.22 Type 2 diabetes mellitus with diabetic chronic kidney disease; E11.40 Type 2 diabetes mellitus with diabetic neuropathy, unspecified; E11.65 Type 2 diabetes mellitus with hyperglycemia; E78.00 Pure hypercholesterolemia, unspecified; E78.5 Hyperlipidemia, unspecified; E86.1 Hypovolemia; F17.200 Nicotine dependence, unspecified, uncomplicated; G89.29 Other chronic pain; I27.81 Cor pulmonale (chronic); G25.81 Restless legs syndrome; Y84.1 Kidney dialysis as the cause of abnormal reaction of the patient, or of later complication, without mention of misadventure at the time of the procedure; Y92.89 Other specified places as the place of occurrence of the external cause; Z99.2 Dependence on renal dialysis; Z68.34 Body mass index [BMI] 34.0-34.9, adult; Z90.5 Acquired absence of kidney; Z91.15 Patient's noncompliance with renal dialysis; Z91.19 Patient's noncompliance with other medical treatment and regimen; Z88.8 Allergy status to other drugs, medicaments and biological substances
CPT/HCPCS: 36415; 36600; 71045; 74176; 80048; 80053; 80074; 82550; 82803; 82945; 82948; 83036; 83540; 83550; 83615; 83690; 83735; 83874; 83880; 83986; 84100; 84145; 84157; 84443; 84484; 85025; 85027; 85045; 85610; 85730; 87071; 87116; 87205; 87206; 88112; 88305; 89051; 90935; 93005; 93306; 93356; 94660; 97039; C1729; G0378; J0360; J0885; J1100; J1756; J1940; J2001; J2060; J2175; J2250; J2270; J2405; J2704; J3010; J3490; J7030; J7070

== ENCOUNTER 2019-12-24 21:25 | Emergency (ER) | payer MEDICARE ==
[~2019-12-24 21:25] MED LIST changes: -AMLO-258 PO; +AMLO10TA7 PO; +FERR324T4 PO; -LEVO150T11 PO; +LEVO175T9 PO; +PANT40TA PO; -SITA25TA5 PO
[2019-12-24 22:42] LABS: EOSINOPHILS % (AUTO) 7.8 % (0.0-8.0); HEMATOCRIT 28.8 % (36-48); LYMPHOCYTES % (AUTO) 14.8 % (21.0-51.0); MEAN CORPUSCULAR HEMOGLOBIN 29.1 pg (27.0-33.0); MEAN CORPUSCULAR HGB CONC 31.6 g/dL (32.0-36.0); MONOCYTES % (AUTO) 9.4 % (3.0-13.0); NEUTROPHILS % (AUTO) 66.5 % (40.0-77.0); PLATELET COUNT (AUTO) 293 K/uL (130-400); RED BLOOD CELL COUNT(AUTO) 3.13 MIL/uL (4.00-5.50); RED CELL DISTRIBUTION WIDTH 16.2 % (11.0-15.5); WHITE BLOOD COUNT (AUTO) 6.1 K/uL (4.8-10.8)
[2019-12-24] MEDS ORDERED: ONDANSETRON HCL 4 MG/2 ML VIAL ONE (22:42)
[2019-12-24] MEDS ORDERED: MORPHINE SULFATE 4 MG/1ML SYG ONE (22:43)
[2019-12-24 22:50] LABS: INR 0.94 (0.85-1.15); PARTIAL THROMBOPLASTIN TIME 30.1 SEC (26.3-35.5); PROTHROMBIN TIME 10.2 SEC (9.6-11.6)
[2019-12-24 23:00] LABS: CREATININE 6.1 mg/dL (0.5-1.5); POTASSIUM 4.6 mmol/L (3.5-5.1)
[2019-12-24 23:06] LABS: ALBUMIN 2.5 g/dL (3.5-5.0); BILIRUBIN,DIRECT 0.1 mg/dL (0.0-0.3); BILIRUBIN,TOTAL 0.3 mg/dL (0.2-1.0); TOTAL PROTEIN, SERUM 6.8 g/dL (6.0-8.3)
[2019-12-24] MEDS ORDERED: DICYCLOMINE HCL 10 MG/ML 2ML AMP IM ONE (23:09)
[2019-12-24] MEDS ORDERED: ONDANSETRON ODT 4 MG TAB ONE (23:09)
[2019-12-25] MEDS ORDERED: DICYCLOMINE HCL 20 MG TAB ONE (00:35)
[2019-12-28] MEDS ORDERED: TRAM100T40 PO (22:18)
[2019-12-30] MEDS ORDERED: CLON0.1T2 PO (16:59)
[2019-12-30] MEDS ORDERED: LEVO100T4 PO (16:59)
[2019-12-30] MEDS ORDERED: SEVE800 PO (16:59)
[2019-12-30] MEDS ORDERED: HYDR25 PO (16:59)
[2019-12-30] MEDS ORDERED: MINO2.5 PO (17:14)
[2019-12-30] MEDS ORDERED: Folic Acid/Vitamin B Comp W-C PO (17:14)
== END 2019-12-25 00:45 | disposition home or self-care (01) ==
LOC: EDH 21:25
DX: R10.10 Upper abdominal pain, unspecified (principal); R06.02 Shortness of breath; I12.0 Hypertensive chronic kidney disease with stage 5 chronic kidney disease or end stage renal disease; E11.22 Type 2 diabetes mellitus with diabetic chronic kidney disease; N18.6 End stage renal disease; E11.40 Type 2 diabetes mellitus with diabetic neuropathy, unspecified; Z98.51 Tubal ligation status; Z98.890 Other specified postprocedural states; Z90.5 Acquired absence of kidney; Z99.2 Dependence on renal dialysis
CPT/HCPCS: 36415; 74176; 80048; 80076; 82550; 83690; 84484; 85025; 85610; 85730; 93005; 96374; 96375; 99285; J2270; J2405; J0500

== ENCOUNTER 2019-12-26 20:43 | Inpatient (IN) | payer MEDICARE ==
[~2019-12-26] VITALS: Ht 157.5 cm; Wt 106.0 kg
[~2019-12-26 20:43] MED LIST changes: +AMLO-258 PO; -AMLO10TA7 PO
[2019-12-26 21:34] LABS: BASOPHILS % (AUTO) 0.6 % (0.0-5.0); EOSINOPHILS % (AUTO) 7.8 % (0.0-8.0); HEMATOCRIT 29.8 % (36-48); LYMPHOCYTES % (AUTO) 12.4 % (21.0-51.0); MEAN CORPUSCULAR HEMOGLOBIN 28.7 pg (27.0-33.0); MEAN CORPUSCULAR HGB CONC 31.2 g/dL (32.0-36.0); MONOCYTES % (AUTO) 7.7 % (3.0-13.0); NEUTROPHILS % (AUTO) 71.1 % (40.0-77.0); PLATELET COUNT (AUTO) 287 K/uL (130-400); RED BLOOD CELL COUNT(AUTO) 3.24 MIL/uL (4.00-5.50); RED CELL DISTRIBUTION WIDTH 16.1 % (11.0-15.5); WHITE BLOOD COUNT (AUTO) 6.8 K/uL (4.8-10.8)
[2019-12-26] MEDS ORDERED: ONDANSETRON HCL 4 MG/2 ML VIAL ONE (21:38)
[2019-12-26] MEDS ORDERED: MORPHINE SULFATE 4 MG/1ML SYG ONE (21:39)
[2019-12-26 21:44] LABS: CREATININE 7.6 mg/dL (0.5-1.5); POTASSIUM 5.1 mmol/L (3.5-5.1)
[2019-12-26 21:47] LABS: INR 0.95 (0.85-1.15); PARTIAL THROMBOPLASTIN TIME 29.1 SEC (26.3-35.5); PROTHROMBIN TIME 10.3 SEC (9.6-11.6)
[2019-12-26 21:49] LABS: ALBUMIN 2.5 g/dL (3.5-5.0); BILIRUBIN,TOTAL 0.3 mg/dL (0.2-1.0); TOTAL PROTEIN, SERUM 6.5 g/dL (6.0-8.3)
[2019-12-26 22:05] LABS: B-TYPE NATRIURETIC PEPTIDE 2140 pg/mL (0-100)
[2019-12-26] MEDS ORDERED: FUROSEMIDE 10 MG/ML 4ML VIAL ONE (22:13)
[2019-12-26] MEDS ORDERED: NITROGLYCERIN 0.4 MG SL TAB SL ONE (22:13)
[2019-12-26] MEDS ORDERED: ONDANSETRON HCL 4 MG/2 ML VIAL IV PRN (23:30)
[2019-12-26] MEDS ORDERED: CLONIDINE HCL 0.1 MG TABLET PO PRN (23:45)
[2019-12-26] MEDS ORDERED: CLONIDINE HCL 0.1 MG TABLET ONE (23:51)
[2019-12-27] MEDS: FUROSEMIDE 10 MG/ML 2ML VIAL IV SCH ×3 (00:15→20:43)
[2019-12-27] MEDS: MORPHINE SULFATE 2 MG/ML 1ML SYG IV PRN ×2 (02:07→18:50)
[2019-12-27 02:20] LABS: % IRON SATURATION 26.4 % (22-44)
[2019-12-27 04:52] VITALS: BP 200/99
[2019-12-27] MEDS: LEVOTHYROXINE 100 MCG TABLET PO SCH (05:44)
[2019-12-27] MEDS: LEVOTHYROXINE 75 MCG TABLET PO SCH (05:44)
[2019-12-27] MEDS: CLONIDINE HCL 0.1 MG TABLET PO SCH ×3 (05:44→20:42)
[2019-12-27] MEDS: INSULIN HUMULIN R 100 UNIT/ML 3ML SQ SCH ×4 (05:45→20:39)
[2019-12-27 06:18] LABS: BASOPHILS % (AUTO) 0.8 % (0.0-5.0); EOSINOPHILS % (AUTO) 9.7 % (0.0-8.0); HEMATOCRIT 29.1 % (36-48); MEAN CORPUSCULAR HEMOGLOBIN 28.7 pg (27.0-33.0); MEAN CORPUSCULAR HGB CONC 30.6 g/dL (32.0-36.0); MEAN CORPUSCULAR VOLUME 93.9 fL (79-99); MONOCYTES % (AUTO) 9.2 % (3.0-13.0); PLATELET COUNT (AUTO) 315 K/uL (130-400); RED CELL DISTRIBUTION WIDTH 16.2 % (11.0-15.5); WHITE BLOOD COUNT (AUTO) 6.2 K/uL (4.8-10.8)
[2019-12-27 06:44] LABS: B-TYPE NATRIURETIC PEPTIDE 2480 pg/mL (0-100)
[2019-12-27 06:55] LABS: ALBUMIN 2.6 g/dL (3.5-5.0); BILIRUBIN,TOTAL 0.3 mg/dL (0.2-1.0); POTASSIUM 5.2 mmol/L (3.5-5.1); TOTAL PROTEIN, SERUM 6.9 g/dL (6.0-8.3)
[2019-12-27 06:57] LABS: CREATININE 8.1 mg/dL (0.5-1.5)
--- NOTE | 2019-12-27 07:55 | NUR ---
PATIENT UPDATE Dr. Wei called twice at 0735 and 0755 for this pt's consult. Came in very short of breath, again non compliant with her hemodialysis sessions. Dx with fluid overload, acute pulmo edema and hypertension. Order received for hemodialysis today and to call the HD nurse.
[2019-12-27 08:00] VITALS: BP 194/108
--- NOTE | 2019-12-27 08:15 | NUR ---
HD NURSE Amie the HD nurse called and was made aware of the HD order.
[2019-12-27] MEDS: HYDRALAZINE HCL 25 MG TABLET PO SCH ×3 (08:26→20:43)
[2019-12-27] MEDS: FAMOTIDINE/PF 20 MG/2 ML VIAL IV SCH (08:26)
[2019-12-27] MEDS: FERROUS SULFATE 325 MG TABLET.DR PO SCH ×2 (08:27→20:42)
[2019-12-27] MEDS ORDERED: NON-FORMULARY MEDICATION 1 EACH (Levothyroxine Sodium 175 MCG) PO SCH (09:00)
[2019-12-27 11:54] VITALS: BP 182/99
--- NOTE | 2019-12-27 15:47 | NUR ---
CM NOTE MET WITH PATIENT AND STATES RESIDES AT HOME WITH MOTHER AND BROTHER. [facility] USES MOSTLY W/C AND WALKER W WHEELS AT TIMES. IS PENDING TO HAVE A PROVIDER START[place] [facility] [place] MOTHER TRANSPORTS TO . [facility] DC PLAN [place]. NO DC NEEDS. Addendum: 12/27/19 at 1554 by CADEN BOND CM Amended: Links added.
[2019-12-27 16:00] VITALS: BP 210/98
[2019-12-27 20:54] VITALS: BP 212/100
[2019-12-27] MEDS ORDERED: AMLODIPINE BESYLATE 5 MG TAB PO SCH (22:45)
[2019-12-27] MEDS ORDERED: HYDRALAZINE HCL 20 MG/ML VIAL IV PRN (22:45)
[2019-12-27] MEDS ORDERED: LABETALOL HCL 5 MG/ML 20ML VIAL IV ONE (22:50)
[2019-12-27] MEDS ORDERED: LABETALOL 20 MG/4 ML DISP.SYRIN IV PRN ×2 (23:00)
[2019-12-27 23:56] VITALS: BP 179/91
[2019-12-28] VITALS (18 sets, daily range): BP systolic 139–240; BP diastolic 71–111
[2019-12-28] MEDS: MORPHINE SULFATE 2 MG/ML 1ML SYG IV PRN ×3 (03:43→20:12)
[2019-12-28 05:40] LABS: HEMATOCRIT 25.8 % (36-48); MEAN CORPUSCULAR HEMOGLOBIN 29.7 pg (27.0-33.0); MEAN CORPUSCULAR HGB CONC 31.8 g/dL (32.0-36.0); MEAN CORPUSCULAR VOLUME 93.5 fL (79-99); PLATELET COUNT (AUTO) 261 K/uL (130-400); RED BLOOD CELL COUNT(AUTO) 2.76 MIL/uL (4.00-5.50); RED CELL DISTRIBUTION WIDTH 16.2 % (11.0-15.5); WHITE BLOOD COUNT (AUTO) 5.3 K/uL (4.8-10.8)
[2019-12-28 06:06] LABS: CREATININE 6.5 mg/dL (0.5-1.5); PHOSPHORUS 8.2 mg/dL (2.5-4.9); POTASSIUM 4.6 mmol/L (3.5-5.1)
[2019-12-28 06:13] LABS: EOSINOPHILS % (MANUAL) 7 % (1-6); LYMPHOCYTES % (MANUAL) 9 % (22-44); MAN.DIFF COMMENT-IMPRESSION MANUAL DIFFERENTIAL; MONOCYTES % (MANUAL) 9 % (2-9); SEGMENTED NEUTROPHILS % 75 % (40-70)
[2019-12-28 06:14] LABS: PLATELET MORPHOLOGY COMMENT ADEQUATE
[2019-12-28] MEDS: LEVOTHYROXINE 75 MCG TABLET PO SCH (06:29)
[2019-12-28] MEDS: INSULIN HUMULIN R 100 UNIT/ML 3ML SQ SCH ×4 (06:29→20:53)
[2019-12-28] MEDS: LEVOTHYROXINE 100 MCG TABLET PO SCH (06:29)
--- NOTE | 2019-12-28 08:17 | NUR ---
PATIENT UPDATE Blood pressure had been running in the 200's systolic and almost 100mmhg diastolic, Ms. Aguirre CALL CENTER NURSE made aware and asked for orders, pt seen and examined, started on labetalol 10 mg iv prn, bp down to 170's mmhg afterwards, will continue to monitor.
[2019-12-28] MEDS ORDERED: AMLODIPINE BESYLATE 5 MG TAB PO SCH ×2 (09:00)
[2019-12-28] MEDS: Vitamin B Complex/Vit C/Folic Acid PO SCH (10:05)
[2019-12-28] MEDS: HYDRALAZINE HCL 25 MG TABLET PO SCH ×2 (10:05→20:08)
[2019-12-28] MEDS: CLONIDINE HCL 0.1 MG TABLET PO SCH ×2 (10:06→20:10)
[2019-12-28] MEDS: FAMOTIDINE/PF 20 MG/2 ML VIAL IV SCH (10:06)
[2019-12-28 11:51] LABS: ABG BASE EXCESS 0.2 mmol/L (-2.0-3.0); ABG HCO3 25.1 mmol/L (21.0-28.0); ABG OXYGEN SATURATION 92.4 % (95.0-99.0); ABG PCO2 42 mmHg (32-45)
[2019-12-28] MEDS: FERROUS SULFATE 325 MG TABLET.DR PO SCH ×2 (12:09→20:10)
[2019-12-28] MEDS: SEVELAMER HCL 800 MG TABLET PO SCH ×2 (16:52→17:00)
[2019-12-28] MEDS ORDERED: HYDRALAZINE HCL 25 MG TABLET ONE (19:37)
[2019-12-28] MEDS: NICARDIPINE HCL 25 MG in SODIUM CHLORIDE 0.9% 240 ML IV SCH (21:09)
[2019-12-28] MEDS ORDERED: TRAM100T40 PO ×2 (22:18)
[2019-12-28] MEDS ORDERED: SODIUM CHLORIDE 0.9% 250 ML IV ONE (22:21)
[2019-12-28] MEDS ORDERED: NICARDIPINE HCL 25 MG/10 ML ML IV ONE (22:21)
[2019-12-29] VITALS (61 sets, daily range): BP systolic 141–191; BP diastolic 74–118
[2019-12-29] MEDS: MORPHINE SULFATE 2 MG/ML 1ML SYG IV PRN ×4 (03:04→23:17)
[2019-12-29 03:39] LABS: BASOPHILS % (AUTO) 0.7 % (0.0-5.0); EOSINOPHILS % (AUTO) 9.5 % (0.0-8.0); HEMATOCRIT 25.9 % (36-48); LYMPHOCYTES % (AUTO) 14.3 % (21.0-51.0); MEAN CORPUSCULAR HEMOGLOBIN 28.9 pg (27.0-33.0); MEAN CORPUSCULAR HGB CONC 31.7 g/dL (32.0-36.0); MEAN CORPUSCULAR VOLUME 91.2 fL (79-99); MONOCYTES % (AUTO) 9.3 % (3.0-13.0); NEUTROPHILS % (AUTO) 65.5 % (40.0-77.0); PLATELET COUNT (AUTO) 283 K/uL (130-400); RED BLOOD CELL COUNT(AUTO) 2.84 MIL/uL (4.00-5.50); RED CELL DISTRIBUTION WIDTH 16.9 % (11.0-15.5); WHITE BLOOD COUNT (AUTO) 5.9 K/uL (4.8-10.8)
[2019-12-29 03:58] LABS: CREATININE 7.1 mg/dL (0.5-1.5); POTASSIUM 4.4 mmol/L (3.5-5.1)
[2019-12-29] MEDS: LEVOTHYROXINE 75 MCG TABLET PO SCH (06:37)
[2019-12-29] MEDS: INSULIN HUMULIN R 100 UNIT/ML 3ML SQ SCH ×4 (06:37→20:30)
[2019-12-29] MEDS: LEVOTHYROXINE 100 MCG TABLET PO SCH (06:37)
[2019-12-29] MEDS: NICARDIPINE HCL 25 MG in SODIUM CHLORIDE 0.9% 240 ML IV SCH (07:01)
[2019-12-29] MEDS: FLUOXETINE HCL 20 MG CAPSULE PO SCH (08:20)
[2019-12-29] MEDS: Vitamin B Complex/Vit C/Folic Acid PO SCH (08:20)
[2019-12-29] MEDS: GABAPENTIN 100 MG CAPSULE PO SCH ×3 (08:20→22:18)
[2019-12-29] MEDS: FERROUS SULFATE 325 MG TABLET.DR PO SCH ×2 (08:20→20:05)
[2019-12-29] MEDS: HYDRALAZINE HCL 25 MG TABLET PO SCH ×3 (08:21→22:17)
[2019-12-29] MEDS: AMLODIPINE BESYLATE 5 MG TAB PO SCH (08:21)
[2019-12-29] MEDS: FAMOTIDINE/PF 20 MG/2 ML VIAL IV SCH (08:22)
[2019-12-29] MEDS: CLONIDINE HCL 0.1 MG TABLET PO SCH ×3 (08:22→22:18)
[2019-12-29] MEDS: SEVELAMER HCL 800 MG TABLET PO SCH ×3 (08:22→17:00)
--- NOTE | 2019-12-29 11:07 | NUR ---
DR. RAMIREZ IN TO SEE PT. PLAN OF CARE DISCUSSED.
--- NOTE | 2019-12-29 12:49 | NUR ---
DR. FU IN TO SEE PT. PLAN OF CARE DISCUSSED. NEW ORDERS RECEIVED AND NOTED. [facility] HD NURSE CALLED AND NOTIFIED OF ORDERS FOR HEMODIALYSIS FOR TODAY.
[2019-12-29] MEDS: HEPARIN SODIUM 5000UNIT/ML 1ML VIAL SQ SCH (16:00)
--- NOTE | 2019-12-29 18:00 | NUR ---
HD COMPLETED. 2.5 LITERS REMOVED BY HD NURSE. SBP 170S. DR ANTONIO NOTIFIED, NEW ORDERS RECEIVED AND NOTED.
[2019-12-29] MEDS: MINOXIDIL 2.5 MG TAB PO SCH ×2 (20:04→20:29)
[2019-12-29] MEDS: TRAZODONE HCL 50 MG TAB PO SCH ×2 (20:05→20:21)
--- NOTE | 2019-12-29 20:32 | NUR ---
Refused Trazodone. States it makes her sleep until the following day. States she is able to get Morphine again at 10 PM and she will want that. I explained if she is asleep I will not wake her to give her the Morphine. Agreeable.
[2019-12-29] MEDS ORDERED: ROPINIROLE HCL 0.25 MG TABLET PO SCH (21:00)
[2019-12-30] VITALS (8 sets, daily range): BP systolic 168–184; BP diastolic 69–97
[2019-12-30] MEDS: MORPHINE SULFATE 2 MG/ML 1ML SYG IV PRN ×2 (03:14→10:36)
[2019-12-30] MEDS: HEPARIN SODIUM 5000UNIT/ML 1ML VIAL SQ SCH ×2 (03:16→16:42)
[2019-12-30 03:42] LABS: HEMATOCRIT 27.7 % (36-48); MEAN CORPUSCULAR HEMOGLOBIN 28.9 pg (27.0-33.0); MEAN CORPUSCULAR HGB CONC 31.4 g/dL (32.0-36.0); RED BLOOD CELL COUNT(AUTO) 3.01 MIL/uL (4.00-5.50); WHITE BLOOD COUNT (AUTO) 5.7 K/uL (4.8-10.8)
[2019-12-30 04:10] LABS: MAGNESIUM 2.1 mg/dL (1.80-2.40); PHOSPHORUS 6.4 mg/dL (2.5-4.9); POTASSIUM 4.5 mmol/L (3.5-5.1)
[2019-12-30] MEDS: LEVOTHYROXINE 75 MCG TABLET PO SCH (06:36)
[2019-12-30] MEDS: LEVOTHYROXINE 100 MCG TABLET PO SCH (06:36)
[2019-12-30] MEDS: INSULIN HUMULIN R 100 UNIT/ML 3ML SQ SCH ×3 (06:51→16:30)
[2019-12-30] MEDS: FAMOTIDINE/PF 20 MG/2 ML VIAL IV SCH (08:15)
[2019-12-30] MEDS: GABAPENTIN 100 MG CAPSULE PO SCH ×2 (08:15→14:06)
[2019-12-30] MEDS: FLUOXETINE HCL 20 MG CAPSULE PO SCH (08:15)
[2019-12-30] MEDS: Vitamin B Complex/Vit C/Folic Acid PO SCH (08:15)
[2019-12-30] MEDS: FERROUS SULFATE 325 MG TABLET.DR PO SCH (08:15)
[2019-12-30] MEDS: SEVELAMER HCL 800 MG TABLET PO SCH ×2 (08:15→12:25)
[2019-12-30] MEDS: HYDRALAZINE HCL 25 MG TABLET PO SCH ×2 (09:00→12:33)
[2019-12-30] MEDS: CLONIDINE HCL 0.1 MG TABLET PO SCH ×2 (09:00→12:34)
--- NOTE | 2019-12-30 10:12 | NUR ---
HAND OFF REPORT CALLED TO [facility] ..PT CURRENTLY RECEIVING HEMODIALYSIS
[2019-12-30] MEDS ORDERED: EPOETIN ALFA 10,000 UNIT/ML VIAL SQ SCH (12:00)
[2019-12-30] MEDS: MINOXIDIL 2.5 MG TAB PO SCH (12:25)
[2019-12-30] MEDS: AMLODIPINE BESYLATE 5 MG TAB PO SCH (12:25)
--- NOTE | 2019-12-30 13:30 | NUR ---
PT TRANSFERRED TO ROOM 308
[2019-12-30] MEDS ORDERED: CLON0.1T2 PO ×2 (16:59)
[2019-12-30] MEDS ORDERED: LEVO100T4 PO ×2 (16:59)
[2019-12-30] MEDS ORDERED: HYDR25 PO ×2 (16:59)
[2019-12-30] MEDS ORDERED: SEVE800 PO ×2 (16:59)
[2019-12-30] MEDS ORDERED: Folic Acid/Vitamin B Comp W-C PO ×2 (17:14)
[2019-12-30] MEDS ORDERED: MINO2.5 PO ×2 (17:14)
--- NOTE | 2019-12-30 18:00 | NUR ---
D/C PT LEFT A/A X 3 WITH V/S STABLE AND NO COMPLICATIONS. PT LEFT VIA WHEELCHAIR IN PVT CAR, D/C INSTRUCTIONS GIVEN TO PATIENT ALONG WITH INSTRUCTIONS TO F/U WITH HER PCP IN 3 DAYS.
== END 2019-12-30 18:00 | disposition home or self-care (01) | DRG 189 ==
LOC: EDH 20:43 → EDHIP 23:21 → 3AH 12-27 00:25 → 2BH 12-28 18:17 → 3BH 12-30 13:52
PROVIDERS: ADMIT Internal Medicine; ATTEND Internal Medicine
PROC: 5A1D70Z Performance of Urinary Filtration, Intermittent, Less than 6 Hours Per Day (ICD-10-PCS; principal; 2019-12-27)
PROC: 5A09357 Assistance with Respiratory Ventilation, Less than 24 Consecutive Hours, Continuous Positive Airway Pressure (ICD-10-PCS; 2019-12-27)
PROC: 5A1D70Z Performance of Urinary Filtration, Intermittent, Less than 6 Hours Per Day (ICD-10-PCS; 2019-12-29)
PROC: 5A1D70Z Performance of Urinary Filtration, Intermittent, Less than 6 Hours Per Day (ICD-10-PCS; 2019-12-30)
DX: J96.01 Acute respiratory failure with hypoxia (principal); N18.6 End stage renal disease; J81.0 Acute pulmonary edema; I12.0 Hypertensive chronic kidney disease with stage 5 chronic kidney disease or end stage renal disease; Z68.41 Body mass index [BMI] 40.0-44.9, adult; E66.2 Morbid (severe) obesity with alveolar hypoventilation; J91.8 Pleural effusion in other conditions classified elsewhere; E87.1 Hypo-osmolality and hyponatremia; E87.70 Fluid overload, unspecified; E87.5 Hyperkalemia; E11.22 Type 2 diabetes mellitus with diabetic chronic kidney disease; F17.200 Nicotine dependence, unspecified, uncomplicated; J44.9 Chronic obstructive pulmonary disease, unspecified; E11.21 Type 2 diabetes mellitus with diabetic nephropathy; E78.5 Hyperlipidemia, unspecified; D50.9 Iron deficiency anemia, unspecified; Z83.3 Family history of diabetes mellitus; Z82.49 Family history of ischemic heart disease and other diseases of the circulatory system; Z83.49 Family history of other endocrine, nutritional and metabolic diseases; Z91.19 Patient's noncompliance with other medical treatment and regimen; Z91.15 Patient's noncompliance with renal dialysis; Z99.2 Dependence on renal dialysis; Z90.5 Acquired absence of kidney; Z79.899 Other long term (current) drug therapy; Z88.8 Allergy status to other drugs, medicaments and biological substances; Z98.51 Tubal ligation status; I16.0 Hypertensive urgency
CPT/HCPCS: 36415; 36600; 71045; 74176; 80048; 80053; 80076; 82435; 82550; 82803; 82947; 82948; 83540; 83550; 83605; 83690; 83735; 83880; 84100; 84132; 84295; 84484; 85018; 85025; 85027; 85610; 85730; 90935; 93005; 94660; 96374; 96375; 99291; G0378; J0500; J0885; J1644; J1940; J2270; J2405; J3490; J7050

== ENCOUNTER 2020-01-11 04:16 | Inpatient (IN) | payer MEDICARE ==
[~2020-01-11] VITALS: Ht 170.2 cm; Wt 105.3 kg
[~2020-01-11 04:16] MED LIST changes: -CLON0.1T PO; +CLON0.1T2 PO; +Folic Acid/Vitamin B Comp W-C PO; +HYDR25 PO; +LEVO100T4 PO; -LEVO175T9 PO; +MINO2.5 PO; -QUET200T29 PO; -ROPI0.2527 PO; +SEVE800 PO; +TRAM100T40 PO; -TRAZ150T79 PO
[2020-01-11 05:21] LABS: CREATININE 7.1 mg/dL (0.5-1.5); POTASSIUM 4.7 mmol/L (3.5-5.1)
[2020-01-11] MEDS ORDERED: ONDANSETRON HCL 4 MG/2 ML VIAL ONE ×2 (05:22→19:54)
[2020-01-11] MEDS ORDERED: MORPHINE SULFATE 2 MG/ML 1ML SYG ONE ×2 (05:23→19:54)
[2020-01-11 05:27] LABS: ALBUMIN 2.7 g/dL (3.5-5.0); BILIRUBIN,TOTAL 0.3 mg/dL (0.2-1.0)
[2020-01-11 05:34] LABS: BASOPHILS % (AUTO) 0.9 % (0.0-5.0); EOSINOPHILS % (AUTO) 5.6 % (0.0-8.0); HEMATOCRIT 28.8 % (36-48); LYMPHOCYTES % (AUTO) 17.3 % (21.0-51.0); MEAN CORPUSCULAR HEMOGLOBIN 28.6 pg (27.0-33.0); MEAN CORPUSCULAR HGB CONC 31.6 g/dL (32.0-36.0); MEAN CORPUSCULAR VOLUME 90.6 fL (79-99); NEUTROPHILS % (AUTO) 65.7 % (40.0-77.0); PLATELET COUNT (AUTO) 292 K/uL (130-400); RED BLOOD CELL COUNT(AUTO) 3.18 MIL/uL (4.00-5.50); RED CELL DISTRIBUTION WIDTH 15.8 % (11.0-15.5); WHITE BLOOD COUNT (AUTO) 5.7 K/uL (4.8-10.8)
[2020-01-11 06:02] LABS: B-TYPE NATRIURETIC PEPTIDE 2140 pg/mL (0-100)
[2020-01-11] MEDS ORDERED: ONDANSETRON HCL 4 MG/2 ML VIAL IVP PRN (07:15)
[2020-01-11] MEDS ORDERED: CLINDAMYCIN 300 MG/D5W 50 ML 50 ML IV SCH (07:15)
[2020-01-11] MEDS ORDERED: CLINDAMYCIN 300 MG/D5W 50 ML 50 ML IV ONE (07:32)
[2020-01-11] MEDS ORDERED: PANTOPRAZOLE 40 MG/VIAL IVP SCH (09:00)
[2020-01-11] MEDS ORDERED: VANCOMYCIN PROTOCOL PER PHARMACY IV SCH (13:00)
[2020-01-11] MEDS: ZOSYN 3.375GM+NS 50ML 50 ML IV SCH ×2 (13:00→21:00)
[2020-01-11] MEDS ORDERED: VANCOMYCIN 1.25 GM in SODIUM CHLORIDE 0.9% 250 ML IV SCH (13:45)
[2020-01-11] MEDS ORDERED: COMPOUND IV REFRIGERATED 1 EACH IVSOLN MISC PRN (14:00)
[2020-01-11] MEDS ORDERED: ZOSYN 3.375GM+NS 50ML 50 ML IV ONE (16:33)
[2020-01-11] MEDS ORDERED: HYDRALAZINE HCL 20 MG/ML VIAL ONE (19:54)
[2020-01-11 21:55] VITALS: BP 162/80
[2020-01-11] MEDS ORDERED: TRAZ-187 PO (22:12)
--- NOTE | 2020-01-11 23:16 | NUR ---
NOTE 2228 PAGED HOSPITALIST VIA ANSWERING SERVICE TO CLARIFY SOME ORDERS. 2235 RECEIVED CALL FROM LAB FOR BLOOD CULTURES GROWING GRAM POSITIVE COCCI IN CLUSTERS. AWAITING CALL BACK FROM HOSPITALIST TO NOTIFY WELL. 2301 NO CALL BACK YET. CONTACTED ANSWERING SERVICE. THEY PAGED AGAIN. 2316 RECEIVED CALL FROM Lionel MAYORGA ENGINE DYNAMOMETER TESTER. NOTIFIED HER OF BLOOD CULTURES AND ANTIBIOTICS SHE IS CURRENTLY ON. INQUIRED ABOUT A DIET, BLOOD SUGAR CHECKS, AND HOME MEDICATIONS. RECEIVED ORDERS AND ENTERED IN COMPUTER TO RESUME BP MEDS AND TRAZADONE ONLY. KEEP NPO FOR NOW. BLOOD SUGAR CHECKS Q6HRS. NO INSULIN COVERAGE.
[2020-01-12 00:23] VITALS: BP 173/85
[2020-01-12] MEDS ORDERED: MORPHINE SULFATE 2 MG/ML 1ML SYG ONE (00:39)
[2020-01-12] MEDS: CLONIDINE HCL 0.1 MG TABLET PO SCH ×4 (00:42→20:44)
[2020-01-12] MEDS: TRAZODONE HCL 100 MG TABLET PO SCH ×2 (00:42→20:44)
[2020-01-12] MEDS ORDERED: HYDRALAZINE HCL 20 MG/ML VIAL IV PRN (01:15)
[2020-01-12] MEDS ORDERED: PHARMACY COMMUNICATION MISC SCH ×2 (04:00→15:45)
[2020-01-12] MEDS ORDERED: GLUCAGON 1MG KIT 1 MG ML IM PRN (05:00)
[2020-01-12 05:19] VITALS: BP 156/83
[2020-01-12] MEDS ORDERED: SODIUM CHLORIDE 0.9% 250 ML IV ONE (05:37)
[2020-01-12] MEDS: CLINDAMYCIN 600 MG/D5% WATER 50 ML IV SCH ×2 (05:42→12:40)
[2020-01-12] MEDS: DEXTROSE 50%-WATER 50 ML DISP.SYRIN IV PRN ×2 (05:42→11:48)
[2020-01-12 05:50] LABS: HEMATOCRIT 29.5 % (36-48); MEAN CORPUSCULAR HEMOGLOBIN 30.2 pg (27.0-33.0); MEAN CORPUSCULAR HGB CONC 31.9 g/dL (32.0-36.0); MEAN CORPUSCULAR VOLUME 94.9 fL (79-99); PLATELET COUNT (AUTO) 328 K/uL (130-400); RED BLOOD CELL COUNT(AUTO) 3.11 MIL/uL (4.00-5.50); RED CELL DISTRIBUTION WIDTH 16.1 % (11.0-15.5); WHITE BLOOD COUNT (AUTO) 6.1 K/uL (4.8-10.8)
[2020-01-12 06:50] LABS: BAND NEUTROPHILS % (MANUAL) 1 % (0-2); BASOPHILS % (MANUAL) 1 % (0-2); EOSINOPHILS % (MANUAL) 3 % (1-6); LYMPHOCYTES % (MANUAL) 11 % (22-44); MONOCYTES % (MANUAL) 2 % (2-9); SEGMENTED NEUTROPHILS % 82 % (40-70)
[2020-01-12 06:51] LABS: MAN.DIFF COMMENT-IMPRESSION MANUAL DIFFERENTIAL; PLATELET MORPHOLOGY COMMENT ADEQUATE
[2020-01-12 06:52] LABS: CREATININE 7.8 mg/dL (0.5-1.5); PHOSPHORUS 9.7 mg/dL (2.5-4.9); POTASSIUM 5.4 mmol/L (3.5-5.1)
[2020-01-12 07:30] VITALS: BP 158/78
[2020-01-12] MEDS ORDERED: HYDRALAZINE HCL 25 MG TABLET PO SCH (09:00)
[2020-01-12] MEDS: MINOXIDIL 2.5 MG TAB PO SCH ×2 (09:10→20:44)
[2020-01-12] MEDS: HYDRALAZINE HCL 25 MG TABLET PO SCH ×3 (09:10→20:44)
[2020-01-12] MEDS: ZOSYN 3.375GM+NS 50ML 50 ML IV SCH ×2 (09:10→20:42)
[2020-01-12] MEDS: AMLODIPINE BESYLATE 5 MG TAB PO SCH (09:10)
[2020-01-12 11:00] VITALS: BP 138/67
[2020-01-12] MEDS: MORPHINE SULFATE 2 MG/ML 1ML SYG IVP PRN ×2 (12:40→18:21)
[2020-01-12] MEDS: PHARMACY COMMUNICATION MISC SCH ×2 (14:30→18:13)
[2020-01-12] MEDS ORDERED: HYDROXYZINE HCL 25 MG TABLET PO PRN (14:45)
[2020-01-12] MEDS ORDERED: RENAL DOSE IV SCH (15:00)
[2020-01-12 15:13] LABS: % IRON SATURATION 33.3 % (22-44)
[2020-01-12 16:00] VITALS: BP 142/61
--- NOTE | 2020-01-12 16:51 | NUR ---
DC PLAN PATIENT LIVES WITH DAD, STEP MOM AND MINOR SON. DIALYSIS TTS US RENAL SNB, SEMI IND, WHEEL CHAIR, RWLK. PLAN IS TO DC HOME. Addendum: 01/12/20 at 1652 by PILLO BUTT RN CM Amended: Links added.
[2020-01-12 20:00] VITALS: BP 168/74
[2020-01-12] MEDS: EPOETIN ALFA 10,000 UNIT/ML VIAL SQ SCH (20:45)
[2020-01-13] VITALS (7 sets, daily range): BP systolic 150–184; BP diastolic 70–92
[2020-01-13] MEDS: PHARMACY COMMUNICATION MISC SCH ×3 (02:30→14:30)
[2020-01-13] MEDS: MORPHINE SULFATE 2 MG/ML 1ML SYG IVP PRN ×3 (03:16→22:38)
[2020-01-13 05:29] LABS: BASOPHILS % (AUTO) 0.5 % (0.0-5.0); EOSINOPHILS % (AUTO) 6.7 % (0.0-8.0); HEMATOCRIT 27.4 % (36-48); LYMPHOCYTES % (AUTO) 9.3 % (21.0-51.0); MEAN CORPUSCULAR HEMOGLOBIN 28.8 pg (27.0-33.0); MEAN CORPUSCULAR HGB CONC 30.7 g/dL (32.0-36.0); MEAN CORPUSCULAR VOLUME 93.8 fL (79-99); MONOCYTES % (AUTO) 9.5 % (3.0-13.0); NEUTROPHILS % (AUTO) 73.5 % (40.0-77.0); PLATELET COUNT (AUTO) 292 K/uL (130-400); RED BLOOD CELL COUNT(AUTO) 2.92 MIL/uL (4.00-5.50); RED CELL DISTRIBUTION WIDTH 16.2 % (11.0-15.5); WHITE BLOOD COUNT (AUTO) 5.8 K/uL (4.8-10.8)
[2020-01-13 06:07] LABS: ALBUMIN 2.4 g/dL (3.5-5.0); BILIRUBIN,TOTAL 0.2 mg/dL (0.2-1.0); PHOSPHORUS 9.3 mg/dL (2.5-4.9); POTASSIUM 5.4 mmol/L (3.5-5.1); TOTAL PROTEIN, SERUM 6.1 g/dL (6.0-8.3)
[2020-01-13 06:09] LABS: CREATININE 7.9 mg/dL (0.5-1.5)
[2020-01-13 06:11] LABS: HEPATITIS A ANTIBODY IGM Negative (Negative); HEPATITIS B CORE IGM Negative (Negative); HEPATITIS Bs ANTIGEN SCREEN P Negative (Negative)
[2020-01-13] MEDS: PANTOPRAZOLE SODIUM 40 MG TABLET.DR PO SCH (08:08)
--- NOTE | 2020-01-13 08:10 | NUR ---
NOTE AAOX3. DENIES PAIN OR DISCOMFORT. 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 SHE CAME IN WITH DX CELLULITIS ABDOMINAL WALL. S/P TENKOFF CATHETER REMOVAL BY DR CHAVES BUT SURGICAL INCISIONS BECAME INFECTED AND THE LARGER ONE DEHISCED. DR RODRIGUEZ CONSULTED AND SOME FRANCINE REMOVED AND WOUNDS HAS BEEN GETTING PACKED WITH IODOFORM PACKING GAUZE DAILY. PATIENT HAS SOMETHING GROWING ON BLOOD CULTURES. SHE IS ON ZOSYN AND VANCO. DR PORTER IS ALSO IN THE CASE. PATIENT WAS RECEIVING DIALYSIS YESTERDAY BECAUSE HER REGULAR DAYS ARE TTS BUT SHE MISSED HER DAY SUNDAY BUT DIALYSIS NURSE HAS HAVING TROUBLE WITH THE GRAFT. DR FU WAS MADE AWARE YESTERDAY AND HE ORDERED FISTULOGRAM FOR TODAY. SHE WILL GET DIALYZED TODAY AGAIN SINCE REGULAR TREATMENT TIME WAS CUT SHORT DUE TO PROBLEMS ENCOUNTERED DURING TREATMENT.
[2020-01-13] MEDS: MINOXIDIL 2.5 MG TAB PO SCH ×2 (09:00→21:07)
[2020-01-13] MEDS: HYDRALAZINE HCL 25 MG TABLET PO SCH ×3 (09:00→21:08)
[2020-01-13] MEDS: CLONIDINE HCL 0.1 MG TABLET PO SCH ×3 (09:00→21:07)
[2020-01-13] MEDS: AMLODIPINE BESYLATE 5 MG TAB PO SCH (09:00)
[2020-01-13 10:45] LABS: INR 0.95 (0.85-1.15); PARTIAL THROMBOPLASTIN TIME 28.9 SEC (26.3-35.5); PROTHROMBIN TIME 10.3 SEC (9.6-11.6)
[2020-01-13] MEDS ORDERED: NAFCILLIN 2GM+ NS 100ML 100 ML IV SCH (11:00)
[2020-01-13] MEDS ORDERED: LIDOCAINE HCL 1% MDV 50ML VIAL ONE (11:30)
[2020-01-13] MEDS ORDERED: IODIXANOL 320 MG/ML 100 ML VIAL ONE (11:30)
[2020-01-13] MEDS ORDERED: FENTANYL CITRATE PF 50 MCG/1 ML 2ML VIAL ONE (11:30)
--- NOTE | 2020-01-13 16:13 | NUR ---
1602 CI Letter given to patient.
--- NOTE | 2020-01-13 16:37 | NUR ---
NUTRITION EDUCATION STEPHANIE reviewed Dialysis Nutrition Education with Pt. Pt recalls receiving in past but desired review. RD reviewed nutrition recommendations with Pt. Pt verbalized understanding. Education provided via phone d/t isolation protocol. Handouts placed in Pt chart. Addendum: 01/13/20 at [address] RD Amended: Links added.
--- NOTE | 2020-01-13 16:47 | NUR ---
RD NOTIFICATION Pt with infected peritoneal Dialysis site. Pt with 75gm CCD in place. No report of GI distress. Good PO intake and Pt reports hunger at time of call. RD provided Nutrition education via phone, reference materials placed in Pt chart. Pt receiving hemodialysis. Recommend Renal Dialysis Diet modification Dialysis Nutrition education provided RD to continue to monitor. Addendum: 01/13/20 at [address] Amended: Links added.
--- NOTE | 2020-01-13 18:08 | NUR ---
NOTE PATIENT HAD PROCEDURE DONE EARLIER THIS MORNING AND SHE TOLERATED WITHOUT PROBLEMS. REPORT FROM ISA IN MAINTENANCE CRAFTSMAN SAYS THERE WAS NOTHING WRONG WITH THE GRAFT AND ONLY WAS ACCESSED AND IMAGES TAKEN. PATIENT HAS STARTED DIALYSIS ABOUT AN HOUR AGO AND SO FAR NO PROBLEMS. WOUND CARE DONE AT THIS TIME AND SWAB FOR AEROBIC AND ANAEROBIC CULTURES DONE TO WOUND. TOLERATED PROCEDURE WITHOUT DISCOMFORT. HAS BEEN VERY CALM, RELAXED SINCE SHE CAME BACK FROM MAINTENANCE CRAFTSMAN. SHE RECEIVED MORPHINE FOR PAIN FROM ME BEFORE GOING TO MAINTENANCE CRAFTSMAN AND WAS MEDICATED DURING THE PROCEDURE WELL.
[2020-01-13] MEDS: TRAZODONE HCL 100 MG TABLET PO SCH (21:07)
[2020-01-13] MEDS: NAFCILLIN 2GM+ NS 100ML 100 ML IV SCH (22:39)
[2020-01-14 04:00] VITALS: BP 144/66
[2020-01-14 05:39] LABS: BASOPHILS % (AUTO) 0.5 % (0.0-5.0); EOSINOPHILS % (AUTO) 11.2 % (0.0-8.0); HEMATOCRIT 26.2 % (36-48); LYMPHOCYTES % (AUTO) 14.9 % (21.0-51.0); MEAN CORPUSCULAR HEMOGLOBIN 28.4 pg (27.0-33.0); MEAN CORPUSCULAR HGB CONC 30.9 g/dL (32.0-36.0); MEAN CORPUSCULAR VOLUME 91.9 fL (79-99); MONOCYTES % (AUTO) 11.5 % (3.0-13.0); NEUTROPHILS % (AUTO) 61.5 % (40.0-77.0); PLATELET COUNT (AUTO) 261 K/uL (130-400); RED BLOOD CELL COUNT(AUTO) 2.85 MIL/uL (4.00-5.50); RED CELL DISTRIBUTION WIDTH 16.7 % (11.0-15.5); WHITE BLOOD COUNT (AUTO) 5.6 K/uL (4.8-10.8)
[2020-01-14 05:49] LABS: CREATININE 6.1 mg/dL (0.5-1.5); POTASSIUM 4.3 mmol/L (3.5-5.1)
[2020-01-14] MEDS: NAFCILLIN 2GM+ NS 100ML 100 ML IV SCH ×3 (06:16→17:55)
[2020-01-14] MEDS: PANTOPRAZOLE SODIUM 40 MG TABLET.DR PO SCH (06:16)
[2020-01-14 07:30] VITALS: BP 149/71
--- NOTE | 2020-01-14 07:54 | NUR ---
PATIENT REFUSING DAILY WEIGHTS. CONSENT TO REFUSE TREATMENT SIGNED BY PATIENT. PATIENT VERBALIZED UNDERSTANDING OF RISKS INVOLVED. WILL CONTINUE TO BE OBSERVED. CALL LIGHT WITHIN REACH. Addendum: 01/14/20 at 0755 by TAL SIDHU RN RN Amended: Links added.
[2020-01-14] MEDS: MINOXIDIL 2.5 MG TAB PO SCH ×2 (09:07→20:51)
[2020-01-14] MEDS: AMLODIPINE BESYLATE 5 MG TAB PO SCH (09:07)
[2020-01-14] MEDS: HYDRALAZINE HCL 25 MG TABLET PO SCH ×3 (09:08→20:40)
[2020-01-14] MEDS: CLONIDINE HCL 0.1 MG TABLET PO SCH ×3 (09:08→20:41)
[2020-01-14 11:00] VITALS: BP 157/80
[2020-01-14] MEDS: MORPHINE SULFATE 2 MG/ML 1ML SYG IVP PRN ×3 (11:10→22:55)
--- NOTE | 2020-01-14 11:42 | NUR ---
per md request to wean patient of oxygen i have taken down pt to 1.5 L nc of oxygen; she was 98% on o23lnc prior. ; pt also stated she felt like she needed to void and could not; i performed a bladder scan and she 264cc of urine according to scan. no intervention done, pt encouraged to cont. trying to urinate; she stated she voids very little due to her dialysis
[2020-01-14 16:00] VITALS: BP 150/69
--- NOTE | 2020-01-14 19:21 | NUR ---
dressing changed to right abdominal wound; pt has 2 inc/wounds that have mario in place and loosly approximated one of the wounds has packing in place that i removed--pt has white exudate on the iodoform packing-- area cleansed with normal saline then new iodoform gauze packed into opening then k4x4 gauze on top and medipore tape; surrounding skin pink in color; pt librado. proc. well.
[2020-01-14 20:08] VITALS: BP 150/69
[2020-01-14] MEDS: TRAZODONE HCL 100 MG TABLET PO SCH (20:41)
[2020-01-14] MEDS: EPOETIN ALFA 10,000 UNIT/ML VIAL SQ SCH (20:55)
[2020-01-15 00:08] VITALS: BP 141/62
[2020-01-15] MEDS: NAFCILLIN 2GM+ NS 100ML 100 ML IV SCH ×5 (01:13→23:55)
[2020-01-15 04:16] VITALS: BP 167/71
[2020-01-15 04:44] LABS: BASOPHILS % (AUTO) 0.4 % (0.0-5.0); EOSINOPHILS % (AUTO) 13.9 % (0.0-8.0); HEMATOCRIT 28.1 % (36-48); LYMPHOCYTES % (AUTO) 16.4 % (21.0-51.0); MEAN CORPUSCULAR HEMOGLOBIN 28.9 pg (27.0-33.0); MEAN CORPUSCULAR HGB CONC 31.3 g/dL (32.0-36.0); MEAN CORPUSCULAR VOLUME 92.1 fL (79-99); MONOCYTES % (AUTO) 10.4 % (3.0-13.0); NEUTROPHILS % (AUTO) 58.3 % (40.0-77.0); PLATELET COUNT (AUTO) 282 K/uL (130-400); RED BLOOD CELL COUNT(AUTO) 3.05 MIL/uL (4.00-5.50); RED CELL DISTRIBUTION WIDTH 16.7 % (11.0-15.5); WHITE BLOOD COUNT (AUTO) 5.3 K/uL (4.8-10.8)
--- NOTE | 2020-01-15 05:04 | NUR ---
NO VOID PATIENT UNABLE TO VOID SO PATIENT WAS BLADDER SCANNED TO SHOW >700ML OF FLUID IN BLADDER. AJ BUYER AGENT NOTIFIED OF PATIENT STATUS ORDER FOR IN AND OUT CATH GIVEN AND CARRIED OUT.
[2020-01-15] MEDS: MORPHINE SULFATE 2 MG/ML 1ML SYG IVP PRN ×3 (05:22→22:03)
[2020-01-15 05:51] LABS: POTASSIUM 4.5 mmol/L (3.5-5.1)
[2020-01-15 08:00] VITALS: BP 153/74
[2020-01-15] MEDS: MINOXIDIL 2.5 MG TAB PO SCH ×2 (10:32→19:32)
[2020-01-15] MEDS: HYDRALAZINE HCL 25 MG TABLET PO SCH ×3 (10:32→19:33)
[2020-01-15] MEDS: CLONIDINE HCL 0.1 MG TABLET PO SCH ×3 (10:32→19:32)
[2020-01-15 11:39] VITALS: BP 148/61
[2020-01-15] MEDS: AMLODIPINE BESYLATE 5 MG TAB PO SCH (13:36)
[2020-01-15] MEDS: PANTOPRAZOLE SODIUM 40 MG TABLET.DR PO SCH (13:37)
[2020-01-15 16:00] VITALS: BP 153/69
--- NOTE | 2020-01-15 16:57 | NUR ---
DC PLAN VISITED WITH PATIENT. PATIENT DID NOT WANT TO GO TO [facility]. SECOND TIME SPOKE TO PATIENT REGARDING LT[facility]. SAID MOM STILL DOES NOT WANT LTAC. WANTS TO TALK TO DR. MORALES TO SEE IF CAN GET SOMETHING ELSE. DR. Jacob REC JENNIFER Q6 FOR 3 WEEKS. HOME HEALTH CAN NOT ACCOMADATE THAT LEVEL. OFFERED SNF SAID DOES NOT WANT TO GO TO A HALF-WAY. Addendum: 01/15/20 at 1701 by PILLO BUTT RN CM Amended: Links added.
[2020-01-15] MEDS: TRAZODONE HCL 100 MG TABLET PO SCH (19:32)
[2020-01-15 20:16] VITALS: BP 137/60
[2020-01-16 00:20] VITALS: BP 147/66
[2020-01-16] MEDS: MORPHINE SULFATE 2 MG/ML 1ML SYG IVP PRN ×2 (02:43→12:55)
[2020-01-16 04:20] VITALS: BP 129/57
[2020-01-16 05:08] LABS: BASOPHILS % (AUTO) 0.6 % (0.0-5.0); EOSINOPHILS % (AUTO) 13.5 % (0.0-8.0); LYMPHOCYTES % (AUTO) 11.4 % (21.0-51.0); MEAN CORPUSCULAR HEMOGLOBIN 28.5 pg (27.0-33.0); MEAN CORPUSCULAR HGB CONC 30.7 g/dL (32.0-36.0); MEAN CORPUSCULAR VOLUME 92.9 fL (79-99); MONOCYTES % (AUTO) 9.1 % (3.0-13.0); NEUTROPHILS % (AUTO) 64.9 % (40.0-77.0); PLATELET COUNT (AUTO) 279 K/uL (130-400); RED BLOOD CELL COUNT(AUTO) 3.12 MIL/uL (4.00-5.50); RED CELL DISTRIBUTION WIDTH 17.2 % (11.0-15.5); WHITE BLOOD COUNT (AUTO) 6.4 K/uL (4.8-10.8)
[2020-01-16 05:37] LABS: CREATININE 5.6 mg/dL (0.5-1.5)
[2020-01-16] MEDS: NAFCILLIN 2GM+ NS 100ML 100 ML IV SCH ×2 (06:22→11:34)
[2020-01-16] MEDS: PANTOPRAZOLE SODIUM 40 MG TABLET.DR PO SCH (07:30)
[2020-01-16 08:00] VITALS: BP 131/66
[2020-01-16] MEDS: HYDRALAZINE HCL 25 MG TABLET PO SCH ×2 (09:45→14:04)
[2020-01-16] MEDS: AMLODIPINE BESYLATE 5 MG TAB PO SCH (09:46)
[2020-01-16] MEDS: MINOXIDIL 2.5 MG TAB PO SCH (09:49)
[2020-01-16] MEDS: CLONIDINE HCL 0.1 MG TABLET PO SCH ×2 (09:49→14:05)
[2020-01-16 11:12] VITALS: BP 139/59
--- NOTE | 2020-01-16 12:00 | NUR ---
DR Neves wound care here ,spoke with pt Addendum: 01/16/20 at 1301 by MAMIE HERNANDEZ RN RN Amended: Links added.
[2020-01-16] MEDS ORDERED: HONEY 1 APPL/ML TUBE TP SCH (13:00)
--- NOTE | 2020-01-16 16:37 | NUR ---
MIGUEL JENNINGS CALLED SAID PATIENT ACCEPTED. NURSE NOTIFIED. MOT SIGNED AND IN CHART. EMS FILLED AND SENT. COVID FORM SIGNED AND SENT. PATIENT WILL GO VIA EMS 02 2L NC. NOTIFIED. Addendum: 01/16/20 at 1638 by PILLO BUTT RN Amended: Links added.
[2020-01-16 17:00] VITALS: BP 138/65
--- NOTE | 2020-01-16 21:55 | NUR ---
EMS HERE TO TRANSFER PATIENT TO [facility]. PATIENT AAOX3, DENIES DISCOMFORT, NO ACUTE DISTRESS NOTED. PATENT RIGHT FOREARM 20GA PIV LEFT IN PLACE.
[2020-01-17] MEDS ORDERED: EPOETIN ALFA 10,000 UNIT/ML VIAL SQ SCH (09:00)
== END 2020-01-16 22:15 | DRG 919 ==
LOC: EDH 04:16 → EDHIP 06:40 → 3DH 20:12
PROVIDERS: ADMIT Hospitalist; ATTEND Hospitalist
PROC: 0W9F3ZZ Drainage of Abdominal Wall, Percutaneous Approach (ICD-10-PCS; 2020-01-11)
PROC: 5A1D70Z Performance of Urinary Filtration, Intermittent, Less than 6 Hours Per Day (ICD-10-PCS; 2020-01-12)
PROC: B51W1ZZ Fluoroscopy of Dialysis Shunt/Fistula using Low Osmolar Contrast (ICD-10-PCS; principal; 2020-01-13)
PROC: 5A1D70Z Performance of Urinary Filtration, Intermittent, Less than 6 Hours Per Day (ICD-10-PCS; 2020-01-13)
PROC: 5A1D70Z Performance of Urinary Filtration, Intermittent, Less than 6 Hours Per Day (ICD-10-PCS; 2020-01-15)
DX: T81.31XA Disruption of external operation (surgical) wound, not elsewhere classified, initial encounter (principal); A41.01 Sepsis due to Methicillin susceptible Staphylococcus aureus; N18.6 End stage renal disease; G93.41 Metabolic encephalopathy; J96.90 Respiratory failure, unspecified, unspecified whether with hypoxia or hypercapnia; L03.311 Cellulitis of abdominal wall; I13.2 Hypertensive heart and chronic kidney disease with heart failure and with stage 5 chronic kidney disease, or end stage renal disease; E87.1 Hypo-osmolality and hyponatremia; E44.0 Moderate protein-calorie malnutrition; J81.1 Chronic pulmonary edema; E11.22 Type 2 diabetes mellitus with diabetic chronic kidney disease; D63.8 Anemia in other chronic diseases classified elsewhere; I50.9 Heart failure, unspecified; F17.200 Nicotine dependence, unspecified, uncomplicated; R53.81 Other malaise; E11.51 Type 2 diabetes mellitus with diabetic peripheral angiopathy without gangrene; E66.9 Obesity, unspecified; E87.70 Fluid overload, unspecified; Y83.8 Other surgical procedures as the cause of abnormal reaction of the patient, or of later complication, without mention of misadventure at the time of the procedure; Z68.36 Body mass index [BMI] 36.0-36.9, adult; Y92.89 Other specified places as the place of occurrence of the external cause; Z99.2 Dependence on renal dialysis; Z91.15 Patient's noncompliance with renal dialysis; Z91.14 Patient's other noncompliance with medication regimen; Z90.5 Acquired absence of kidney; Z88.8 Allergy status to other drugs, medicaments and biological substances; Z83.3 Family history of diabetes mellitus; Z84.89 Family history of other specified conditions
CPT/HCPCS: 36415; 36901; 71045; 74176; 80048; 80053; 80074; 80202; 82948; 83540; 83550; 83605; 83880; 84100; 85025; 85610; 85730; 87040; 87070; 87076; 87077; 87186; 90935; 93306; 93356; A4344; C1894; C9113; G0378; J0360; J0885; J1644; J2405; J2543; J3010; J3370; J3490; J7050; J7070; Q9967

== ENCOUNTER 2020-02-27 03:02 | Emergency (ER) | payer MEDICARE ==
[~2020-02-27 03:02] MED LIST changes: -AMLO-258 PO; +AMLO10TA7 PO; -B,C/1TAB PO; -Folic Acid/Vitamin B Comp W-C PO; -HYDR-4154 PO; +TRAZ-187 PO
[2020-02-27] MEDS ORDERED: KETOROLAC TROMETHAMINE 30MG/ML ONE (03:34)
[2020-02-27] MEDS ORDERED: ORPHENADRINE CITRATE 30 MG/ML ML ONE (03:34)
== END 2020-02-27 06:36 | disposition home or self-care (01) ==
LOC: EDH 03:02
DX: G89.29 Other chronic pain (principal); M79.605 Pain in left leg; M79.604 Pain in right leg; I12.0 Hypertensive chronic kidney disease with stage 5 chronic kidney disease or end stage renal disease; E11.22 Type 2 diabetes mellitus with diabetic chronic kidney disease; N18.6 End stage renal disease; E78.00 Pure hypercholesterolemia, unspecified; Z88.6 Allergy status to analgesic agent
CPT/HCPCS: 96374; 96375; 99284; J1885; J2360

== ENCOUNTER 2020-03-02 08:14 | Emergency (ER) | payer MEDICARE ==
[2020-03-02 08:56] LABS: BASOPHILS % (AUTO) 1.2 % (0.0-5.0); EOSINOPHILS % (AUTO) 4.6 % (0.0-8.0); HEMATOCRIT 26.4 % (36-48); MEAN CORPUSCULAR HEMOGLOBIN 31.3 pg (27.0-33.0); MEAN CORPUSCULAR HGB CONC 32.6 g/dL (32.0-36.0); MONOCYTES % (AUTO) 11.1 % (3.0-13.0); NEUTROPHILS % (AUTO) 61.4 % (40.0-77.0); PLATELET COUNT (AUTO) 234 K/uL (130-400); RED BLOOD CELL COUNT(AUTO) 2.75 MIL/uL (4.00-5.50); WHITE BLOOD COUNT (AUTO) 4.3 K/uL (4.8-10.8)
[2020-03-02 09:08] LABS: INR 0.92 (0.85-1.15); PARTIAL THROMBOPLASTIN TIME 28.2 SEC (26.3-35.5)
[2020-03-02 09:10] LABS: ALBUMIN 2.6 g/dL (3.5-5.0); BILIRUBIN,TOTAL 0.9 mg/dL (0.2-1.0); CREATININE 7.6 mg/dL (0.5-1.5); POTASSIUM 4.9 mmol/L (3.5-5.1)
[2020-03-02] MEDS ORDERED: ONDANSETRON HCL 4 MG/2 ML VIAL ONE (09:16)
[2020-03-02] MEDS ORDERED: MORPHINE SULFATE 4 MG/1ML SYG ONE (09:17)
[2020-03-02 09:40] LABS: B-TYPE NATRIURETIC PEPTIDE 4270 pg/mL (0-100)
[2020-03-02] MEDS ORDERED: CLONIDINE HCL 0.2 MG TABLET PO ONE (10:26)
== END 2020-03-02 13:34 | disposition home or self-care (01) ==
LOC: EDH 08:14
DX: I12.0 Hypertensive chronic kidney disease with stage 5 chronic kidney disease or end stage renal disease (principal); N18.6 End stage renal disease; E11.22 Type 2 diabetes mellitus with diabetic chronic kidney disease; G89.29 Other chronic pain; M79.604 Pain in right leg; M79.605 Pain in left leg; R06.02 Shortness of breath; E78.00 Pure hypercholesterolemia, unspecified; E11.40 Type 2 diabetes mellitus with diabetic neuropathy, unspecified; Z99.2 Dependence on renal dialysis; Z98.51 Tubal ligation status; Z72.0 Tobacco use; Z88.8 Allergy status to other drugs, medicaments and biological substances; Z98.890 Other specified postprocedural states
CPT/HCPCS: 36415; 71045; 80053; 83880; 85025; 85610; 85730; 87040 ×2; 93005; 96374; 96375; 99285; J2270; J2405

== ENCOUNTER 2020-06-19 06:49 | Emergency (ER) | payer MEDICARE ==
[~2020-06-19 06:49] MED LIST changes: +AMLO-258 PO; -AMLO10TA7 PO
[2020-06-19 07:08] LABS: BASOPHILS % (AUTO) 0.6 % (0.0-5.0); EOSINOPHILS % (AUTO) 2.9 % (0.0-8.0); HEMATOCRIT 27.8 % (36-48); LYMPHOCYTES % (AUTO) 7.3 % (21.0-51.0); MEAN CORPUSCULAR HEMOGLOBIN 28.8 pg (27.0-33.0); MEAN CORPUSCULAR HGB CONC 30.2 g/dL (32.0-36.0); MEAN CORPUSCULAR VOLUME 95.2 fL (79-99); MONOCYTES % (AUTO) 7.9 % (3.0-13.0); PLATELET COUNT (AUTO) 285 K/uL (130-400); RED BLOOD CELL COUNT(AUTO) 2.92 MIL/uL (4.00-5.50); RED CELL DISTRIBUTION WIDTH 15.3 % (11.0-15.5); WHITE BLOOD COUNT (AUTO) 7.3 K/uL (4.8-10.8)
[2020-06-19 07:25] LABS: ALBUMIN 3.2 g/dL (3.5-5.0); BILIRUBIN,TOTAL 0.4 mg/dL (0.2-1.0); CREATININE 4.8 mg/dL (0.5-1.5); POTASSIUM 4.2 mmol/L (3.5-5.1); TOTAL PROTEIN, SERUM 7.6 g/dL (6.0-8.3)
[2020-06-19] MEDS ORDERED: HYDROCODONE/ACETAMINOPHEN 5/325 MG TAB ONE (09:08)
== END 2020-06-19 11:04 | disposition home or self-care (01) ==
LOC: EDH 06:49
DX: R06.02 Shortness of breath (principal); Z99.2 Dependence on renal dialysis; E11.9 Type 2 diabetes mellitus without complications; E78.5 Hyperlipidemia, unspecified; I10 Essential (primary) hypertension; Z88.8 Allergy status to other drugs, medicaments and biological substances
CPT/HCPCS: 36415; 71045; 80053; 83880; 84484; 85025; 93005